=== PATIENT | female | born 1975 | race Caucasian/White ===

== ENCOUNTER 2023-06-12 08:37 | Emergency (ER) | payer OTHER, SELFPAY ==
[2023-06-12 08:47] VITALS: BP 166/80; PULSE 76; RESP 16; TEMP 36.8; O2SAT 98; BMI 44.6
--- NOTE | 2023-06-12 08:48 | ED.LOWEXI1 ---
HPI - Extremity Injury (Lower) General Chief Complaint: Extremity Injury, Lower Stated Complaint: RT HIP PAIN Time Seen by Provider: 06/12/23 08:48 History of Present Illness HPI Narrative: She presents emergency department complaining of right hip pain. Patient states she rolled out of bed implanted in her right leg to stop her fall. Since then she is having increased pain to the right hip. Any time she tries to bear weight. The patient did not fall. Patient states that last week she rolled her ankle on is having left mid foot pain since. She states her left foot hurts anytime he tries to bear weight. She also has a rash to the medial aspect of the arch. She has been applying hydrocortisone to the area has not had any relief. She states she saw her doctor about this months ago and was told it was eczema. She denies any fever, chills, lower extremity edema. Related Data Previous Rx's Medication Instructions Recorded clotrimazole-betamethasone 1 1 applic topical BID 2 weeks #15 06/12/23 %-0.05 % topical cream grams ketorolac 10 mg tablet 10 mg PO Q8H PRN pain 4 days #14 06/12/23 tabs Allergies Allergy/AdvReac Type Severity Reaction Status Date / Time codeine AdvReac Severe Vomiting Verified 06/12/23 08:46 Review of Systems ROS Status of ROS 10 or more systems reviewed and unremarkable except as noted in history and below PFSH PFS Social History Smoking status: Former smoker Exam Narrative Exam Narrative: Nurses notes and vital signs reviewed and patient is not hypoxic. General: Nontoxic, Well-appearing and in no apparent distress. Skin: Warm, dry, no pallor noted. Left medial mid foot scaly rash throughout the arch extending to the superior leads. There is no erythema no ecchymosis, no signs of trauma, infection. DP +2, tuberculosis +2, capillary refill is brisk. Head: Normocephalic, atraumatic. Neck: Supple, non-tender. Eye: Pupils are equal, round and EOMI. No scleral icterus. Ears, Nose, Mouth, and Throat: TM clear, no posterior oropharynx erythema or nasal mucosal hypertrophy, uvula is mid-line Oral mucosa is moist Cardiovascular: Regular Rate and Rhythm without murmur, gallop or rub. Respiratory: No accessory muscle use or respiratory distress. Lungs are clear to auscultation, no wheezing, rales or rhonchi Chest Wall: no tenderness Back: No midline thoracic or lumbar vertebral tenderness. No CVA tenderness Musculoskeletal: There is superficial to the right hip over the posterior acetabular area. No erythema, ecchymosis, signs of trauma, infection., Full ROM, no calf or popliteal tenderness, no lower extremity edema/swelling GI: Abdomen is soft, non-distended. Normal bowel sounds. No masses appreciated. No tenderness to palpation. No rebound, guarding, or rigidity noted. Neurological: A&O x4. No cranial nerve dysfunction observed. No truncal ataxia. Moves all extremities. Sensation intact. Psychiatric: Cooperative and interactive. Normal mood and affect. MDM - Extremity Injury (Lower) MDM Narrative Medical decision making narrative: Patient was given Toradol in the emergency department. The patient of herself. The patient is given a prescription for Toradol and Lotrisone. At this time the patient is without objective evidence of an acute process requiring hospitalization or inpatient management. The patient has remained hemodynamically stable. No additional indication for emergent studies at this time. I answered all questions. Discussed discharge instructions including standard anticipatory guidance and what should prompt a return to the emergency department, including if they get worse are not getting better or develops any new or concerning symptoms. I've given them specific time frame in which to follow-up, and who to follow-up with. The patient demonstrates understanding. Patient is nontoxic and stable for discharge with outpatient follow-up. This note was created with the assistance of a speech recognition program. Although the intention is to generate documents that actually reflects the content of the visit, no guarantees can be provided that every mistake has been identified and corrected by editing. Lab Data Attestation: I reviewed the patient's lab results. Discharge Plan Discharge Chief Complaint: Extremity Injury, Lower Clinical Impression: Dermatitis, Arthritis of right hip, Left foot pain Patient Disposition: Home, Self-Care Time of Disposition Decision: 09:59 Condition: Good Mode of Transportation: Private Vehicle Prescriptions / Home Meds: New clotrimazole-betamethasone 1-0.05 % cream 1 applic topical BID 14 Days Qty: 15 0RF ketorolac 10 mg tablet 10 mg PO Q8H PRN (Reason: pain) 4 Days Qty: 14 0RF Instructions: Osteoarthritis (ED), Arthralgia (ED), Dermatitis (ED) Stand Alone Forms: Portal Instructions Referrals: OMAR OBREGON APRN [Physician] - 1 week Physician,Non-Staff, MD [Primary Care Provider] - 1 week Discharge Date/Time: 06/12/23 10:18
--- NOTE | 2023-06-12 09:32 | XR_ITS ---
[address] [address] Patient Name: LUI SAM MRN: [id number] date: 1975 Sex: F Assigned Patient Location: ER Current Patient Location: ER Accession/Order Number: [id number] Exam Date: 06/12/2023 09:23 Report Date: 06/12/2023 09:41 At the request of: LIV ALANIZ Procedure: XR hip RT min 2V PROCEDURE: XR hip RT min 2V COMPARISON: None. HISTORY: pain FINDINGS: BONES:No acute fracture or dislocation. Mild degenerative change with joint space narrowing marginal osteophyte formation SOFT TISSUES:Negative. No visible soft tissue swelling. EFFUSION:None visible. OTHER: Negative. XR/XR hip RT min 2V IMPRESSION: Mild degenerative change Electronically authenticated by: SUYAPA BHATT Date: 06/12/2023 09:41
--- NOTE | 2023-06-12 09:32 | XR_ITS ---
[address] [address] Patient Name: LUI SAM MRN: [id number] date: 1975 Sex: F Assigned Patient Location: ER Current Patient Location: ER Accession/Order Number: [id number] Exam Date: 06/12/2023 09:23 Report Date: 06/12/2023 09:43 At the request of: LIV ALANIZ Procedure: XR foot LT min 3V PROCEDURE: XR foot LT min 3V COMPARISON: None. HISTORY: pain FINDINGS: BONES:No acute fracture or dislocation. Moderate enthesopathic spurring of the calcaneus at the Achilles and plantar insertions SOFT TISSUES:Negative. No visible soft tissue swelling. EFFUSION:None visible. OTHER: Negative. XR/XR foot LT min 3V IMPRESSION: No acute abnormality Electronically authenticated by: SUYAPA BHATT Date: 06/12/2023 09:43
[2023-06-12] MEDS: KETOROLAC TROMETHAMINE 60 MG/2 ML VIAL IM (09:54)
== END 2023-06-12 10:18 | disposition home or self-care (01) ==
PROVIDERS: Emergency Provider Emergency Medicine
DX: M16.11 Unilateral primary osteoarthritis, right hip (principal); M79.672 Pain in left foot; L30.9 Dermatitis, unspecified; Z87.891 Personal history of nicotine dependence
CPT/HCPCS: 73502; 73630; 96372; 99285

== ENCOUNTER 2023-11-02 06:29 | Emergency (ER) | payer SELFPAY ==
[2023-11-02 06:32] VITALS: BP 162/108; PULSE 78; RESP 18; TEMP 37.3; O2SAT 96; BMI 43.9
--- NOTE | 2023-11-02 06:41 | PC.NURSE ---
Patient c/o dental pain and facial swelling. patient states she has hx of broken teeth. has broken front tooth at the gum line 2 weeks ago. developed pain and swelling a couple days ago. patient has been taking tylenol and ibuprophen for pain. states pain is 10/10 but reduces to 7/10 after taking 600mg ibuprophn and 1000mg tylenol. patient has swelling on both sides of face. states she feels pain up to the bridge of her nose. patient would like antibiotics. states she does not have insurance so she has not made a dental appointment.
--- NOTE | 2023-11-02 06:45 | ED.DENTAL1 ---
HPI - Dental/Oral General Chief complaint: Dental/Oral Stated complaint: dental Time Seen by Provider: 11/02/23 06:36 Source: patient Mode of arrival: walk-in Limitations: no limitations History of Present Illness HPI Narrative: 40-year-old female to the emergency department with chief complaint of broken tooth which has now become infected. She reports that she sees a dentist the [facility] has upcoming appointment. For the last week she has had increasing pain. She woke up this morning with swelling in her right maxillary region. She denies any fever, sweats, chills. Teeth map: 1. Related Data Previous Rx's Medication Instructions Recorded penicillin V potassium 500 mg 500 mg PO Q6H 7 days #28 tabs 11/02/23 tablet Allergies Allergy/AdvReac Type Severity Reaction Status Date / Time codeine AdvReac Severe Vomiting Verified 11/02/23 06:37 Review of Systems ROS Status of ROS 10 or more systems reviewed and unremarkable except as noted in history and below PFSH PFSH Social History Smoking status: Former smoker Exam Narrative Exam Narrative: VITALS: I have reviewed the triage vital signs. GENERAL: Well developed, well appearing adult in no acute distress. NEURO: Alert and oriented. Moves all extremities. Face is symmetric and expressive. EYES: PERRL. No scleral icterus or conjunctival injection. No discharge. HENT: Normocephalic, atraumatic. Hearing is grossly intact. Nares grossly patent and without discharge. Mucous membranes moist. Nursing for admission. The right maxillary region with some gingival erythema and swelling of the cheek. NECK: No JVD. Patient moves neck without restriction. EXTREMITIES: Symmetric muscle bulk. No joint swelling. No clubbing, cyanosis, or deformity. SKIN: Warm and dry. Normal turgor. No rash or lesions appreciated. PSYCH: Mood, affect, and interaction is appropriate to the setting. Constitutional Vital Signs, click to edit/add: Last Vital Signs Temp 99.1 F 11/02/23 06:32 Pulse 78 11/02/23 06:32 Resp 18 11/02/23 06:32 BP 162/108 H 11/02/23 06:32 Pulse Ox 96 11/02/23 06:32 O2 Del Method Room Air 11/02/23 06:32 Course Vital Signs Vital signs: Vital Signs Temperature 99.1 F 11/02/23 06:32 Pulse Rate 78 11/02/23 06:32 Respiratory Rate 18 11/02/23 06:32 Blood Pressure 162/108 H 11/02/23 06:32 Pulse Oximetry 96 11/02/23 06:32 Oxygen Delivery Method Room Air 11/02/23 06:32 Temperature 99.1 F 11/02/23 06:32 Pulse Rate 78 11/02/23 06:32 Respiratory Rate 18 11/02/23 06:32 Blood Pressure 162/108 H 11/02/23 06:32 Pulse Oximetry 96 11/02/23 06:32 Oxygen Delivery Method Room Air 11/02/23 06:32 MDM - Dental/Oral MDM Narrative Medical decision making narrative: 48-year-old female to the emergency department uncomplicated dental infection. Vital stable, the patient is afebrile. We'll treat with penicillin. She is instructed to follow up with dentist in the next five days. Questions discussed. All questions answered. The patient was discharged home. Medical Records Attestation: I reviewed the patient's medical records. Discharge Plan Discharge Chief Complaint: Dental/Oral Clinical Impression: Dental infection Patient Disposition: Home, Self-Care Time of Disposition Decision: 06:42 Condition: Good Mode of Transportation: Private Vehicle Prescriptions / Home Meds: New penicillin V potassium 500 mg tablet 500 mg PO Q6H 7 Days Qty: 28 0RF Print Language: Ukrainian Instructions: Dental Abscess (ED) Additional Instructions: Follow-up with your dentist at the [facility] within the next five days Stand Alone Forms: Portal Instructions Referrals: Physician,Non-Staff, MD [Primary Care Provider] - 1 week
== END 2023-11-02 06:52 | disposition home or self-care (01) ==
PROVIDERS: Emergency Provider Student in an Organized Health Care Education/Training Program
DX: K04.7 Periapical abscess without sinus (principal); Z87.891 Personal history of nicotine dependence
CPT/HCPCS: 99283

== ENCOUNTER 2023-11-03 08:40 | Emergency (ER) | payer SELFPAY ==
[2023-11-03 08:52] VITALS: BP 182/77; PULSE 102; RESP 20; O2SAT 97; BMI 44.6
[2023-11-03 08:58] VITALS: TEMP 37.5
[2023-11-03] MEDS: ONDANSETRON 4 MG RAPDIS TABLET SL (09:24)
[2023-11-03] MEDS: KETOROLAC TROMETHAMINE 60 MG/2 ML VIAL IM (09:24)
--- NOTE | 2023-11-03 10:21 | ED.GENADUL1 ---
HPI - General Adult General Chief complaint: Allergic Reaction Stated complaint: MOUTH/HEAD PAIN Time Seen by Provider: 11/03/23 09:06 Source: patient Mode of arrival: walk-in History of Present Illness HPI narrative: 48-year-old female presents for what she thinks might be an ALLERGIC reaction to penicillin. She was started on penicillin yesterday and has had four doses. She now has a headache and she got nauseous and she vomited. She has not had a rash or hives or tongue swelling. She doesn't have pruritus. Symptoms started within the last twelve hours. she is on the penicillin because of a tooth issue. Related Data Previous Rx's Medication Instructions Recorded penicillin V potassium 500 mg 500 mg PO Q6H 7 days #28 tabs 11/02/23 tablet clindamycin HCl 300 mg capsule 300 mg PO Q6H 10 days #40 caps 11/03/23 ondansetron 4 mg disintegrating 4 mg PO Q6H PRN nausea and 11/03/23 tablet vomiting #20 tabs Allergies Allergy/AdvReac Type Severity Reaction Status Date / Time codeine AdvReac Severe Vomiting Verified 11/02/23 06:37 Review of Systems ROS Narrative A ten point review of systems is negative except as noted above. PFSH PFSH Social History Smoking status: Former smoker Exam Narrative Exam Narrative: Nurses note and vital signs reviewed and patient is not hypoxic. General: The patient appears well and in no apparent distress. Patient is resting comfortably on cart. Skin: Warm, dry, no pallor noted. There is no rash noted. Head: Normocephalic, atraumatic Eye: Normal conjunctiva, no drainage Ears, Nose, Mouth, and Throat: oral mucosa is moist. Nares patent. dental caries noted in the right upper anterior dentition. No bleeding or pus present. No tongue swelling. She is handling her oral secretions well. Cardiovascular: Regular Rate and Rhythm Respiratory: Patient is in no distress, no accessory muscle use, lungs are clear to auscultation, no wheezing, rales or rhonchi Back: non-tender GI: soft and nontender Musculoskeletal: The patient has no evidence of calf tenderness, no pitting edema, symmetrical pulses noted bilaterally Neurological: A&O, normal speech Psychiatric: Cooperative Constitutional Vital Signs, click to edit/add: Last Vital Signs Temp 99.5 F 11/03/23 08:58 Pulse 102 H 11/03/23 08:52 Resp 20 11/03/23 08:52 BP 182/77 H 11/03/23 08:52 Pulse Ox 97 11/03/23 08:52 O2 Del Method Room Air 11/03/23 08:52 Course Vital Signs Vital signs: Vital Signs Pulse Rate 102 H 11/03/23 08:52 Respiratory Rate 20 11/03/23 08:52 Blood Pressure 182/77 H 11/03/23 08:52 Pulse Oximetry 97 11/03/23 08:52 Oxygen Delivery Method Room Air 11/03/23 08:52 Temperature 99.5 F 11/03/23 08:58 Pulse Rate 102 H 11/03/23 08:52 Respiratory Rate 20 11/03/23 08:52 Blood Pressure 182/77 H 11/03/23 08:52 Pulse Oximetry 97 11/03/23 08:52 Oxygen Delivery Method Room Air 11/03/23 08:52 Medical Decision Making MDM Narrative Medical decision making narrative: the patient presents with side effects of penicillin, specifically nausea. She was given Toradol and Zofran and feels improved and is able to tolerate by mouth liquids. We'll take her off of the penicillin and switched to clindamycin. Treatment diagnosis and follow up are discussed with the patient. Differential Diagnosis Differential Diagnosis: side effect, adverse reaction, ALLERGIC reaction Discharge Plan Discharge Chief Complaint: Allergic Reaction Clinical Impression: Medication side effect Patient Disposition: Home, Self-Care Time of Disposition Decision: 10:29 Condition: Good Mode of Transportation: Private Vehicle Prescriptions / Home Meds: New clindamycin HCl 300 mg capsule 300 mg PO Q6H 10 Days Qty: 40 0RF ondansetron 4 mg tablet,disintegrating 4 mg PO Q6H PRN (Reason: nausea and vomiting) Qty: 20 0RF No Action penicillin V potassium 500 mg tablet 500 mg PO Q6H 7 Days Qty: 28 0RF Instructions: Adverse Drug Reaction (ED) Additional Instructions: discontinue penicillin Stand Alone Forms: Portal Instructions Referrals: Physician,Non-Staff, MD [Primary Care Provider] - 1 week
== END 2023-11-03 10:48 | disposition home or self-care (01) ==
PROVIDERS: Emergency Provider Emergency Medicine
DX: R11.2 Nausea with vomiting, unspecified (principal); T36.0X5A Adverse effect of penicillins, initial encounter; Z87.891 Personal history of nicotine dependence; R51.9 Headache, unspecified; R50.9 Fever, unspecified
CPT/HCPCS: 96372; 99284

== ENCOUNTER 2024-03-16 06:32 | Observation (INO) | payer SELFPAY ==
[2024-03-16] VITALS (50 sets, daily range): BP systolic 138–220; BP diastolic 70–118; PULSE 82–97; TEMP 36.4–38.2; O2SAT 90–100; BMI 42.9; BMI 42.8
--- OUTSIDE RECORDS SUMMARY | 2024-03-16 06:41 | XMS_ITS | CCD ---
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 Automatic Name Role Phone Leonora De Leon Unavailable LIV ALANIZ Admitting Unavailable LIV ALANIZ Attending Unavailable [facility] [place], DR NORMAN Primary Care Unavailable NEMESIO GUTIERREZ Consulting Unavailable [facility] [place], DR NORMAN Primary Care Unavailable ANA, DR SCHRADER Admitting Unavailable ANA, DR SCHRADER Attending Unavailable ANA, DR SCHRADER Consulting Unavailable [facility], DR NORMAN Primary Care Unavailable LIV ALANIZ Admitting Unavailable LIV ALANIZ Attending Unavailable TOM, DR ARMANI Lee Consulting Unavailable LIV ALANIZ Consulting Unavailable Medications Current Medications Medication Drug Class(es) Dates Sig (Normalized) Sig (Original) Penicillin (1 source) Start: 10-14-2021 take 1 tablet by mouth three times daily Penicillin VK 500mg 500mg 1 tab(s) orally tid for 10 day(s) Sep, Active Completed/Discontinued Medications Medication Drug Class(es) Dates Sig (Normalized) Sig (Original) cetirizine hydrochloride 10 mg oral tablet (1 source) Histamine-1 Receptor Antagonist Start: 01-31-2020 take 1 tablet by mouth every twenty-four hours Cetirizine HCl 10 MG 1 tablet Orally Once a day for 30 day(s) Jan, Not-Taking dextromethorphan hydrobromide 30 mg / pyrilamine maleate 30 mg oral tablet (1 source) Uncompetitive B-ooujce-B-aspartate Receptor Antagonist, Sigma-1 Agonist Start: 01-31-2020 [place] DMT 30-30 MG 1 tablet Orally every 6-8 hours for 7 days Jan, Not-Taking fluticasone propionate 0.05 mg/actuat metered dose nasal spray (1 source) Corticosteroid Start: 01-31-2020 take 1 spray(s) nasal route once daily Fluticasone Propionate 50 MCG/ACT 1 spray in each nostril Nasally Once a day for 30 day(s) Jan, Not-Taking Problems Active Problems Problem Classification Problem Date Documented Da te Episodic/Chronic Acute bronchitis (1 source) Acute bronchitis, unspecified; Translations: [ACUTE BRONCHITIS UNSPECIFIED] Onset: 07-29-2022 Episodic Headache; including migraine (1 source) Migraine, unspecified, not intractable, without status migrainosus; Translations: [MIGRAINE UNS NOT INTRACT W/O SM] Onset: 01-28-2022 Chronic Headache; including migraine (3 sources) Headache; including migraine; Translations: [HEADACHE UNSPECIFIED] Onset: 01-25-2022 Substance-related disorders (1 source) Nicotine dependence, cigarettes, uncomplicated; Translations: [NICOTINE DEPEND CIGARETTES UNCOMP] Onset: 07-29-2022 Chronic Unclassified (2 sources) COUGH, UNSPECIFIED; Translations: [COUGH, UNSPECIFIED] Onset: 07-29-2022 Unclassified (1 source) CONTACT W/AND (SUSP) EXPOS COVID-19; Translations: [CONTACT W/AND (SUSP) EXPOS COVID-19] Onset: 07-29-2022 Past or Other Problems Problem Classification Problem Date Documented Date Episodic/Chronic E Codes: Cut/pierceb (1 source) Contact with knife, initial encounter; Translations: [CONTACT WITH KNIFE INITIAL ENC] Onset: 12-21-2021 Episodic Immunizations and screening for infectious disease (2 sources) Contact with and (suspected) exposure to other viral communicable diseases; Translations: [Encounter for immunization] Onset: 10-14-2021 Resolved: 10-14-2021 Episodic Open wounds of extremities (4 sources) Laceration without foreign body of right ring finger without damage to nail, initial encounter; Translations: [LAC NO FB RT RF NO DMG NAIL INITIAL] Onset: 12-19-2021 Episodic Other upper respiratory infections (1 source) Streptococcal pharyngitis Onset: 10-14-2021 Resolved: 10-14-2021 Episodic Unclassified (1 source) COUGH, UNSPECIFIED; Translations: [COUGH, UNSPECIFIED] Onset: 07-26-2022 Results Test Name Value Interpretation Reference Range Facility [facility]on SARS-CoV-2 (COVID-19) RNA CARLITO+probe Ql (Unsp spec) Not detected Normal NOT DETECTED [facility] Comment on above: Result Comment: When diagnostic testing is negative, the possibility of a false negative should be considered in the context of a patient's recent exposures and the presence of clinical signs and symptoms consistent with SARS-CoV-2. This test is not yet approved or cleared by the [place] FDA. When there are no FDA-approved or cleared tests available, and other criteria are met, FDA can make tests available under an emergency access mechanism called an Emergency Use Authorization (EUA). The EUA for this test is supported by the Money Laundering Investigator of Health and Human Service's declaration that circumstances exist to justify the emergency use of in vitro diagnostics for the detection and/or diagnosis of the virus that causes COVID-19. This EUA will remain in effect for the duration of the COVID-19 declaration justifying emergency of IVDs, unless it is terminated or revoked by the FDA (after which the test may no longer be used). Performed By: #### [facility] #### [facility] [address] [place] [address] Dr. Francine Ruiz XR CHEST 1 Von 07-26-2022 XR CHEST 1 V EXAMINATION: XR CHEST 1 V HISTORY: SHORTNESS OF BREATH , cough, sore throat, body aches COMPARISON: XR chest 09/30/2016 FINDINGS: LUNGS: No significant pulmonary parenchymal abnormalities. VASCULATURE: No increased pulmonary vasculature. PLEURA: No pneumothorax, effusion, or pleural thickening. CARDIAC: No cardiomegaly or cardiac silhouette abnormality. MEDIASTINUM: No visible mass or adenopathy. BONES: No fracture or visible bone lesion. OTHER: Negative. IMPRESSION: 1. No acute cardiopulmonary process. Electronically authenticated by: ARMANI SANTOS Date: 2022-07-26 11:40 Normal [facility] Coding Summary.on 02-18-2022 Coding Summary. [id number] IZq3iRx+PGhlYWQ+PE1 LBZFcM25ggDXamZ0XV5 kVHD4FWWTCOEABZL7YV B2nkCP9ZGtyQ3VjyaEl WuzstHNjIC89PAm1WSC 4eQmpPHvaoN3ubFCbQ3 s1NqYoLG89xA32OWblD AKdKoB5WcNwpegesOGw W5zgPuTskQMbMow+PHR hYmxlIHdpZHRoPScxMD ZsHoAbvRpxNN0bIc1vY GVyLWNvbGxhcHNlOiBj s3usJCKjWTwbVC0ehTm tW5EbaRB8OXQor6j4Hv 48dHI+AJObTZH9iUmqT Vfmu063NvAen5tlBOG6 jQDdZHlwKKO3D62sh9H 4QCGuWNYcUGS7dHB4rM 6vdSqozvwrZ9KbpMJkZ zF1PPA3gUUxhI8ozFuo ofbluK6hLqz+P70ZEW0 VXBSILM4SOuf7K9YmLs wvdHI+DP00AMAbPG43c TRlvFAeo7mbtYf8MjJa FZXzQZM0eLzcRMlsx2N sCPZhC78mrPSnu9N1HI OamQbuqSOuYkZwnEW7l J7tQIbharrou9qxmsfj Mudgd9lxcw42wH05P70 aBLlnVXSsLKF8AUOpZT GluLuctb3tkB7wLa1+I Upyp9suq6wunMe6PdXx QAGrzeSaqGhaKPH7c8T aIa78M9MsqCowe5GcZn l9gk72yQIhx0F4jFA7D TckRVIrrI9nKMwyNcR6 DKNyLaLxlM01kFRdTPq qAg5bnAaosWncSL2jMJ JvbxvbBZXtuR8kIDZbp JYbaBiuAW9pDIXkorsv v879PaMlTFC6PFSgvCO rR3CegB6sYnHuNMWtWH IrD3QzrCCvQIwtI023X JdjDoT6KSNbvkWfW2Kl LBYviGayJkC1z0W3Zc4 Uq3UrgplpMFW1GLyrWX C8LvD2QnMqSjD9U7QsZ uz4OVDooEawDN5yC8Zq LIBhjchcxetavQS2ZRE sJRIyyK02hDXpOCdzCd 4bp6X9c553KPVsSYVxp Z92Lw5eoWowQUPytEDD sS0dovafc9cvcubnNdV kBZAaXTx9HJu2EYUahU raKsTwPZT2PfV7NQG6z NCymZ0zzJwpcgzfdP6m Oyc+Q51bpJ6wMYO4VDV 9mcdzDNGlpmUfFG67NZ 33J3TcWegwjNQkoMV+P LUqwkRilJysFV5cSjGk b8ypb4UnSNxdI8DhOXC zKTjuWfu7WOMsXBB0nB V5sV5tNSGtPZgzv4P7o OF9D3OswhTlkb4xp7xo UMLhTTpzG21qzXAcw6I 6VMFicBV4TNBbySyxYm BnqD90Dxt+PGNvbGdyb 3ImMuckk8gnm7jdeVj7 IjMwJSIgdmFsaWduPSJ 5x7ZdKy52X28nKJtjMV RoPSIxNSUiIHZhbGlnb x8kwC0zCl4+PGNvbCB3 aTL1wD6wJDQbJzM5XFq sS665CkTidDHvEezbs4 xou8vdvLp1UxPeUXHvr jVigHjtOKU1v9CmXh73 C96kSGigSOYcFSIcKQT yPCKdqTenkc8qyM8iHc 8+GD2ld0frmc23xU82y HI+KZUnWCE3pUdcOTla RRKmjB6vPPgrMaA9MKH qBvPgdI64cYJnGDeeGt 4vjQurzQfoLI3yYFYcf cpmy650MeAhs0bcFJJl mURuVBhqMHY9W24gh2Y 0SHOvSNAkPLB8bSM3nQ 1hbGlnbjogbGVmdDsgd dNwxWikSJphLHozB784 IHRvcDsnPlBhdGllbnQ pBqWwLGg1X5EhNmv8YQ CezKuxBR5lyJTwIFebX d9olYkfbYxiCF9lDBNd rxcga610UdFjt3ouRCV trKAhMBgrBBG2S53bd6 D8EXIyCWVbAAW2rFF9w W5whMkvlkrmyHTmyRrj ujBgfEomOTwrRGsvA51 6IHRvcDsnPkJpcnRoIE VpkDO6CN19UQ97tBOyc 8G1uOH3Z6RwPPUvgzyt xdkwmSE9ZIOcYGNxhH9 4Qw8jgRohWp9uLBHkZF F9KNBszCCaS1OffY1oB oOrKRUaOYGmL2FdhJXo QUckW004CTsaUlE7ISL uiiLiQ5GmHWMxlWsjOj E0m2R8Oo1BE9G5XZ89R Z77oPXsr4J4yEB7T7Pw SPDxcwnueyhzwBU7YMQ yPTXtfK04Xc9ibSfrUb 5yTZSoEXX4DENgyAWqF 1TdzA2sUbFfDURfKEQj B0FvjOLrTTgpI554FFy wBoK1ESUmozKaW9ZiST YeaMszBlF3b1R9It8DL Ee6CQ52KK53pOQxv6B5 sZI8W4ErJJVfqhhmjsd hyDQ4OCBgMEWsoY95Wh 9twHvaJc3yUXTkCKJ8C AQgaVVxK6JuaB2xAgVs XKAwUKZcT9OkqQSyJCf hE800MRtlGoU3MVKlay WzZ9VsWWOxbXflStR5n 1J2Si0VRAWeYV92MVC3 sMK9LH73LB25P2OpCgf vdGFibGU+PHRhYmxlIH dpZHRoPScxMDAlJyBzd TvyEM7yJr7iLKGqUTPw eHrdeOPkUxJfw0ijRWH eWRjsLK3rdRddN4IanX O1HCIbs3p8Zc64Y72oE 3JvdXA+LPQsvUA9yGD1 lY8iCiFgFfT6DTkvM47 3GzWitRHsVcyqc6ocp0 icaHh2JrE3ZTGuyqTzo MuyRYX2d6OvDd15P78p IHdpZHRoPSIxNSUiIHZ glRsysv2crQ3iXo0+PG XopZL4eOH1uA0iOvNzF bC8NHzyY778BmBphHIu Uosvy0fqc9ocmLp8EeO oGIHrdiBvvLepUHE2c3 DeUr14P0YzdIcnc2UcE qu7cs61tEXrj7O6cTI0 H3VxYFQebfopgUBhhKi aPS8hHEJsqthwHJJlkC 8qMLAkZ8j9LwIcBcL8P BdjU4SwelF6CVYgwCEa TSnsVNE4Z85wt2W2EFX jMJZdEOZ9fMD6uT9coV lnbjogbGVmdDsgdmVyd SptURfyAZgvE525GDWf vIykSZFzaU9pRKWfpTQ dcOqfSA1rATQjenbzBl mJLQxPNqldXRJESx8lP TwvdGQ+BOFzHGA9mYog TUutWVZmdC5qZMQuQ7v 2XvAlYnU0WDjhD7GaLB YstmatJo09lX9zRgAoS xV6DXhoY8GqxrZ9XTXu rMOnMXfzQLJ6X52qx4L 7TPHkYSJzZHI8dOE4qK 1hbGlnbjogbGVmdDsgd dXcqQdnGZjzSVoaC964 FGGczOceSuE8IkW4UzX 4PmI8O5TgNcg4JQKwjW qdRW1kjDDbKRbtNa2jk EadgEueZY2gQRQwyckj EDNczG4uGXQhyQUfaOc bND5zYPPhtcspe323Jo GzZUU5YEYykHZwR2Tig Z5pEyKvTRNxTAIcI9Fs uLHnRCzjY916YNdcLrA 9MSSnexFeU2EgSMGtmU cdUlW8j2Z9Kr79CqLTT WFyczwvdGQ+PHRkIHN0 gGozIWcdUGWbkM9jVCX lM1u7NjBiSxL0NLnkY5 FuCOTbcnqgQk16hO7eK vCuKpK4VBzoD5BcuhT7 FWLfbTGmDZxaBIE3X46 ed6U3EPSmVMXpWPQ6vA C2qF5bgCqqzekbjIKwu DsgdmVydGljYWwtYWxp V075UXYopKgjIaUmiLK sZTwvdGQ+VCSdVIK0dU ccWZqwEFQcfB5xKANtO 1k4JqClUwC1VGarT2Ea FPCrbshrBg45tN2vDqL rHdC0DTsjX4OjsiY3GJ SywEFuONpfCHT8L97qj 3W7LKBlFEDqNJD4uSP8 dU7dtDrdvrlzeQBncTh gdmVydGljYWwtYWxpZ2 46IHRvcDsnPkVtZXJnZ V6arHblvWN+HP57xo19 H0XjCmhsCqo7KJVrYMM 5oUB2gB7pTUEcUPpuf7 Q5xYA0J6HsumJyej4ip 6ioEPImRLomW48ezWDd v1D3DPGreNP1DOMqvEa pLxXnqQ64Mvc+PGNvbG fca3WcAiawc1anb1sdx Ou0UfPjPJKqhoQanGsp ZKO1h2McJg80O54xUAo pZHRoPSIzMCUiIHZhbG qxpn8gdS0yOy0+PGNvb YL8gBH2mI4dJgWdVhM0 NIwxH058MkGqgEFqTbe gc3ebu1xldKw6LhGrFN NvpkTneLalPWA9h7UlZ a48O1CdsFgfl6JkOqt4 du39sSDzf9Q0sUM4M6T hZGRpbmctbGVmdDogMC 3sJQAbutisDAGnxO5sX AVcS2q7CkPgAuS3UBrg T1MdwwA9KUFekZZyEVQ giHXQbU4objaiq7ddpv ppDrNjYLUyPKt2JXl3F NJgjYrgEdWbAWP3LyS9 WTD4kDVfpW8dmUjistl ezA6aRco+ZEv2m9qbyW LoJF1reNX2WD47YL80u HSmn9H3sHX3C6WhQFPw lovvzraypZX4UQUcUBF flY78Ux0qsDzpDh5oWJ NhIBA3FIKsgVWcF4Dhl F9wNcDlOJDsTCXrN1Hr nRDzQLqwN753ICciWeB 6ZHCakyKyT4AdGUYgnM joLzQ2e9U8Ca0VDL32R E37GC82wXDve3G1tPY6 D0RnFWDgtkstkpcoeNB 7MLTbEGZabI65Xy9kjW eaWg0cRLXiYSL5DNYhe SBvJ5BwaU5eWkOjHMId ODTmJ3MllNQiRNnvQ41 0AHimEkI9QORuaeLuZ0 DuFDLvvCxmEkH2w0C5I l8ATn46KE98ZQ33iOQb s7Y6tWN7U0AqZTTelld jbhlroXL6UAZhEDWteR 42Fm0ewWexSr1dLDWhR AB2YYCmlIZbF7MvhJ0j PzSmHYVnJWXyC5VqyKD yMMxlD450ITngKlV3MS ZpidYkL0DwAHBbiMewD dO2u8R4Rj6ETXtqpqx0 L4OwWkfrcJM+DF01ZLE eMR57pACxdOQlh3fmbS v6VoAvOGGmBKU3mAqiA Xoge9UaHQFsA65yjYQs c2U6 (more content not included)... Normal [facility] Auto Diffon 02-17-2022 Basophils/100 WBC (Bld) 1.1 % Normal 0.0-2.0 [facility] Comment on above: Order Comment: Order Added by Discern Expert. Performed By: #### 2 632923, 3762843, 6846394, 01618255, 13593095, 85909890, 98287377 #### [facility] [address] [place] [address] Basophils/Leukocyte s Auto (Bld) [Pure # fraction] 0.2 E9/L Normal 0.0-0.2 [facility] Comment on above: Order Comment: Order Added by Discern Expert. Performed By: #### 2 856701, 6707248, 6837573, 35436939, 13414729, 48177336, 54414505 #### [facility] [address] [place] [address]21 Eosinophils/100 WBC (Bld) 1.4 % Normal 0.0-8.0 [facility] Comment on above: Order Comment: Order Added by Discern Expert. Performed By: #### 2 020903, 4110012, 3851958, 54423884, 71009013, 42389394, 52198735 #### [facility] [address] [place] [address]38 Eosinophils/Leukocy hemant Auto (Bld) [Pure # fraction] 0.2 E9/L Normal 0.0-0.5 [facility] Comment on above: Order Comment: Order Added by Discern Expert. Performed By: #### 2 567034, 0331746, 2286352, 63082460, 56820160, 06182133, 26283542 #### [facility] [address] [place] [address] 79998 Lymphocytes/100 WBC (Bld) 21.7 % Normal 14.0-50.0 [facility] Comment on above: Order Comment: Order Added by Discern Expert. Performed By: #### 2 336794, 2685617, 9141335, 99298696, 14833842, 16627542, 32558159 #### [facility] [address] [place] [address] Lymphocytes/Leukocy hemant Auto (Bld) [Pure # fraction] 3.0 E9/L Normal 1.0-4.0 [facility] Comment on above: Order Comment: Order Added by Discern Expert. Performed By: #### 2 832334, 2687128, 7415691, 97011833, 58339201, 25253966, 28601115 #### [facility] [address] [place] [address]19 Monocytes/100 WBC (Bld) 4.6 % Normal 4.0-14.0 [facility] Comment on above: Order Comment: Order Added by Discern Expert. Performed By: #### 2 637662, 5624652, 1818511, 45780461, 76392769, 92237158, 85824758 #### [facility] [address] [place] [address]71 Monocytes/Leukocyte s Auto (Bld) [Pure # fraction] 0.6 E9/L Normal 0.2-1.0 [facility] Comment on above: Order Comment: Order Added by Discern Expert. Performed By: #### 2 460474, 1854092, 1948215, 98634263, 73943668, 39819321, 74598605 #### [facility] [address] [place] [address] 87739 Neutrophils/100 WBC (Bld) 71.2 % Normal 36.0-75.0 [facility] Comment on above: Order Comment: Order Added by Discern Expert. Performed By: #### 2 019211, 2878978, 6434726, 45677587, 35300555, 58379989, 34980025 #### [facility] [address] [place] [address]344 Neutrophils/Leukocy hemant Auto (Bld) [Pure # fraction] 9.9 E9/L High 2.0-7.5 [facility] Comment on above: Order Comment: Order Added by Discern Expert. Performed By: #### 2 729870, 2249780, 6278851, 66543140, 29302827, 69253141, 05887628 #### [facility] [address] [place] [address] B hCG Qualon 02-17-2022 Beta hCG Ql Negative Normal [facility] Comment on above: Performed By: #### 2 383980, 1846669, 2521525, 05039238, 49405070, 16136716, 35436399 #### [facility] [address] [place] [address] BMPon 02-17-2022 Creatinine [Mass/Vol] 0.6 mg/dL Normal 0.5-1.3 [facility] Comment on above: Performed By: #### 2 118663, 6715610, 0300795, 11378507, 98711602, 88783870, 61135355 #### [facility] [address] [place] [address] Urea nitrogen [Mass/Vol] 7 mg/dL Normal 5-21 [facility] Comment on above: Performed By: #### 2 516962, 6901801, 6723180, 12332139, 16880030, 52968975, 28849414 #### [facility] [address] [place] [address] Urea nitrogen/Creatinine [Mass ratio] 12 No Units Normal 10-20 [facility] Comment on above: Performed By: #### 2 874799, 9489449, 6774125, 98939659, 33584954, 79637469, 85905345 #### [facility] [address] [place] [address] Anion gap [Moles/Vol] 12 mmol/L Normal 6-16 [facility] Comment on above: Performed By: #### 2 433533, 4983561, 7773708, 02874214, 63688264, 77287469, 64462899 #### [facility] [address] [place] [address] Calcium [Mass/Vol] 8.7 mg/dL Low 8.9-11.1 [facility] Comment on above: Performed By: #### 2 021670, 7495537, 8070745, 20989879, 68833405, 11024065, 37329190 #### [facility] [address] [place] [address] Chloride [Moles/Vol] 101 mmol/L Normal 101-111 [facility] Comment on above: Performed By: #### 2 917379, 1033596, 3289615, 92500340, 71766021, 69843170, 55270405 #### [facility] [address] [place] [address] CO2 [Moles/Vol] 26 mmol/L Normal 21-31 [facility] Comment on above: Performed By: #### 2 659991, 5120452, 9655360, 50614552, 09792152, 23348737, 01484184 #### [facility] [address] [place] [address]1928 Glucose [Mass/Vol] 95 mg/dL Normal 55-199 [facility] Comment on above: Result Comment: If t his glucose result represents a fasting glucose, interpretation should refer to the following reference range: 55-99 mg/dL Performed By: #### 2 582184, 2727449, 8513639, 62348088, 42467704, 29260344, 49130504 #### [facility] [address] [place] [address] 77789 Potassium [Moles/Vol] 3.6 mmol/L Normal 3.5-5.3 [facility] Comment on above: Performed By: #### 2 799266, 1811930, 8688832, 64671078, 41214845, 90658853, 65428637 #### [facility] [address] [place] [address] Sodium [Moles/Vol] 135 mmol/L Normal 135-145 [facility] Comment on above: Performed By: #### 2 368023, 3187382, 8350094, 35090248, 18621032, 53001228, 15264710 #### [facility] [address] [place] [address] CBC w/ Auto Diffon Erythrocyte distribution width (RBC) [Ratio] 15.2 % High 10.9-14.2 [facility] Comment on above: Performed By: #### 2 160868, 1198902, 0542001, 83729030, 72334963, 22044098, 78664000 #### [facility] [address] [place] [address]017 Hematocrit (Bld) [Volume fraction] 40.8 % Normal 34.0-46.0 [facility] Comment on above: Performed By: #### 2 728475, 1961114, 0675159, 78317058, 51168947, 97176484, 41798555 #### [facility] [address] [place] [address] 44856 Hemoglobin (Bld) [Mass/Vol] 13.7 g/dL Normal 12.0-16.0 [facility] Comment on above: Performed By: #### 2 744380, 6256353, 8706521, 56304007, 06376210, 02782739, 97506351 #### [facility] [address] [place] [address] 00594 MCH (RBC) [Entitic mass] 27.5 pg Normal 27.0-34.0 [facility] Comment on above: Performed By: #### 2 125539, 3836377, 7361655, 81124195, 51273955, 24130671, 03107066 #### [facility] [address] [place] [address] 24082 MCHC (RBC) [Mass/Vol] 33.5 g/dL Normal 31.4-36.0 [facility] Comment on above: Performed By: #### 2 628204, 0471955, 6114417, 63242467, 99803955, 48652634, 46897288 #### [facility] [address] [place] [address] 79959 MCV (RBC) [Entitic vol] 82.1 fL Normal 80.0-100.0 [facility] Comment on above: Performed By: #### 2 270705, 7142873, 1118530, 93174829, 52602901, 26172524, 84942490 #### [facility] [address] [place] [address] 00527 Platelet mean volume (Bld) [Entitic vol] 9.0 fL Normal 6.4-10.8 [facility] Comment on above: Performed By: #### 2 333410, 3459257, 2165793, 63447034, 40601118, 66931573, 70209394 #### [facility] [address] [place] [address] Platelets (Bld) [#/Vol] 269.0 E9/L Normal 150.0-500.0 [facility] Comment on above: Performed By: #### 2 607835, 2039764, 5791827, 70123833, 15195556, 24454778, 64893462 #### [facility] [address] [place] [address] 64599 RBC (Bld) [#/Vol] 5.0 E12/L Normal 4.3-5.9 [facility] Comment on above: Performed By: #### 2 131289, 5461137, 2994732, 99156078, 95271632, 44813838, 92722427 #### [facility] [address] [place] [address] 23065 WBC corrected for nucl RBC Auto (Bld) [#/Vol] 13.9 E9/L High 4.0-11.0 [facility] Comment on above: Performed By: #### 2 470966, 9247325, 0972811, 92445608, 57662987, 38729896, 76122707 #### [facility] [address] [place] [address] Head or Brain w/o Contras ton 02-17-2022 CT Head or Brain w/o Contrast Exam Date/Time: 02/17/2022 14:07 EDT Reason for Exam: Neuro deficit, acute, stroke suspected;Other (please specify) Report IMPRESSION: NEGATIVE CT SCAN OF THE BRAIN. CLINICAL HISTORY: Neuro deficit, acute, stroke suspected. COMMENT: Unenhanced images were obtained. The ventricles and basal cisterns and cortical sulci appear normal. There is no mass effect nor midline shift. No abnormal attenuation within the brain is noted. There is no evidence of recent intracranial hemorrhage nor extra-axial hematoma. No mass lesion is evident. No skull fracture is noted. All CT scans at this facility use dose modulation, iterative reconstruction, and/or weight based dosing when appropriate to reduce radiation dose to as low as reasonably achievable. FINAL REPORT Dictated: 02/17/2022 2:25 pm Javier Sanon M.D. Signed (Electronic Signature): 02/17/2022 2:25 pm Signed by: Javier Sanon M.D. Transcribed by: BRIAN Technologist: RENNY Normal [facility] Consent for Treatmenton Consent for Treatment [id number]#1.00CD:127 Normal [facility] Discharge Instructionson Discharge Instructions [id number]:127 Normal [facility] ED Clinical Summaryon 2021 ED Clinical Summary [address] [address] ED Clinical Summary Person Information Name: LUI SAM Mendy/[facility] Age: 46 Years : 1975 Sex: Female Language: Hungarian PCP: Betty Velazquez MD Marital Status: MRN: [id number] Visit Id: Visit Reason: Headache; Facial droop; facial numbness, headache...times 3 days Speciality: Acuity: 2 Enc Type: Emergency Med Service: Emergency Arrival: 02/17/2022 12:36:03 Discharge: 02/17/2022 15:24:30 LOS: 000 02:48 Checkin: 02/17/2022 12:36:03 Checkout: 02/17/2022 15:24:30 Dispo Type: Home (Routine DC) EVENTS: Event Name Event Status Request Date/Time Start Date/Time Complete Date/Time Arrive Complete 02/17/2022 12:36:03 02/17/2022 12:36:03 02/17/2022 12:36:03 Document Home Meds Request 02/17/2022 12:36:03 Triage Complete 02/17/2022 12:36:03 02/17/2022 12:54:49 02/17/2022 12:54:49 Registration Complete 02/17/2022 12:42:00 02/17/2022 12:42:00 02/17/2022 12:42:00 Reg Complete Request 02/17/2022 12:42:00 Reg Bed Request Complete 02/17/2022 12:42:01 02/17/2022 12:42:01 02/17/2022 12:42:01 Bed Assign Complete 02/17/2022 12:46:05 02/17/2022 12:46:05 02/17/2022 12:46:05 Dr Exam Complete 02/17/2022 12:46:05 02/17/2022 13:18:57 02/17/2022 13:18:57 RN Exam Complete 02/17/2022 12:46:05 02/17/2022 13:25:21 02/17/2022 13:25:21 EKG Complete 02/17/2022 12:51:56 02/17/2022 13:00:42 Registration Request 02/17/2022 13:18:57 NPO Request 02/17/2022 13:35:50 Pending Labs Request 02/17/2022 13:35:50 Lab Request 02/17/2022 13:35:50 Urine Collect Request 02/17/2022 13:35:50 Patient Care Request 02/17/2022 13:35:50 X-Ray Complete 02/17/2022 13:35:50 02/17/2022 14:00:53 02/17/2022 14:12:25 RT Request 02/17/2022 13:35:50 Meds Admin Complete 02/17/2022 13:35:50 02/17/2022 13:44:54 CT Complete 02/17/2022 13:35:50 02/17/2022 13:58:24 02/17/2022 14:07:27 Pending Labs Complete 02/17/2022 13:57:42 02/17/2022 13:57:42 02/17/2022 14:14:31 Lab Complete 02/17/2022 13:57:42 02/17/2022 13:57:42 02/17/2022 14:14:31 Pending Labs Complete 02/17/2022 14:00:42 02/17/2022 14:00:42 02/17/2022 14:00:49 Lab Complete 02/17/2022 14:00:42 02/17/2022 14:00:42 02/17/2022 14:00:49 Wet Read Request 02/17/2022 14:12:25 Discharge Complete 02/17/2022 15:15:18 02/17/2022 15:24:35 02/17/2022 15:24:35 Transfer Complete 02/17/2022 15:24:35 02/17/2022 15:24:35 02/17/2022 15:24:35 ADDRESS: [address] [place] [address] [id number] PHYS DOC NOTES: MEDICAL INFORMATION: Prescriptions Given: New Medications Printed Prescriptions acyclovir (acyclovir 400 mg Tab) 1 Tablets By Mouth 3 times a day for 10 Days. Refills: 0. predniSONE (predniSONE 10 mg Tab) 1 Dose Separtor By Mouth As Directed. 6 tabs for 2 days,5 tabs for 2 days,4 tabs for 2 days,3 tabs for 2 days,2 tabs for 2 days,1 tab for 2 days. Refills: 0. PATIENT EDUCATION INFORMATION: Instructions: Oliveira Palsy, Adult Follow up: With: Address: When: Armani Hogue [address] [place] [address] [facility] (9) In 3 days 02/20/2022 Comments: Follow-up with a neurologist Dr. Hogue in 2 to 4 days. Return at once if any problems. Take the medications as prescribed. Please be sure to purchase some eye lubricating drops lqar-xlv-wztbjke and use every hour while awake. With: Address: When: Betty Velazquez [address] [place] [address] Business (1) In 3 days DIAGNOSIS: 1:Oliveira's palsy Normal [facility] ED Note-Physicianon 02-18-20 ED Note-Physician Basic Information Time Seen: Nicholas Aguilar DO 02/17/2022 13:18 Chief Complaint Pt presents to ED with complaints of right facial droop onset 3 days ago. Recent influenza A. Pt denies any speech changes, weakness or vision changes. Steady gait noted upon arrival. History of Present Illness Time seen: 1320 Chief complaint: 46-year-old white female right-sided facial weakness and headache History of present illness: The patient states she began about 24 hours ago when she noticed dribbling water out of her mouth when she tried to drink. She states that her face is weak on the right side and the right eye seems to be tearing. The patient denies right hemiparesis. She denies visual changes. She denies head injury, fever, chills and vomiting. She denies shortness of breath and chest pain. She does state that few weeks ago she had an episode where she went to another local emergency department after an episode of lightheadedness and what she described as wavy vision . She states she was diagnosed as a complicated migraine at that time. Nothing makes her symptoms today better or worse. The patient is questioning if she has Oliveira's palsy . She denies other complaints. Review of Systems Episode diagnosed as a complicated migraine a few weeks ago. The patient denies hemoptysis, palpitations, hematemesis, hemiparesis. All other systems have been reviewed and are negative. Physical Exam Vitals & Measurements T: 36.8 ?C(Oral) HR: 77(Monitored) RR: 27 BP: 154/94 SpO2: 97% HT: 163.0 cm HT: 163 cm WT: 113.0 kg WT: 113 kg BMI: 42.53 General: alert, no acute distress Skin: warm, dry Head: no trauma, normocephalic Neck: Trachea midline, no tenderness, supple Eye: normal conjunctiva, sclera clear , pupils react to light ENMT: TM's clear, oral mucosa moist, no pharyngeal erythema or exudate Cardiovascular: regular rate and rhythm, normal peripheral perfusion Respiratory: Lungs CTA, respirations non labored Gastrointestinal: soft, non distended, no tenderness, no guarding. Extremities: Patient moves all 4 extremities spontaneously. Neurological: oriented x 4, LOC appropriate for age, speech is fluent. There is a right-sided facial droop. Examination of the forehead demonstrates weakness in the right forehead when compared to the left. Other than cranial nerve VII the remaining cranial nerves are intact. There is no finger-nose dysmetria. Manager Heavy Equipment strength is equal and symmetric bilaterally. Psychiatric: cooperative, affect appropriate for age, . Medical Decision Making This 46-year-old female with an only risk factor of smoking presents to the emergency department with right-sided facial droop. The examination is consistent with Oliveira's. CT of the head was completed and was read by the radiologist negative. Laboratory studies are reasonably physiologic. The patient is nontoxic in appearance without other neurologic deficits. The patient will be discharged home with prescriptions for acyclovir 400 mg 1 p.o. 3 times daily for 10 days as well as prednisone 10 mg 6 tablets p.o. x2 days, 5 tablets p.o. x2 days, 4 tablets p.o. x2 days, 3 tablets p.o. x2 days, 2 tablets p.o. x2 days and then 1 tablet each day for 2 additional days. She was instructed to follow-up with Dr. Hogue neurology. She is instructed return at once if any problems. I did instruct her to use Lacri-Lube or another ulzc-ujz-dkwpzcu lubricating drop for the eye every hour while awake. She is to return once if any problems. 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) Orders: acetaminophen, 975 mg = 3 tab(s), Tab, Oral, Once, Stop date 02/17/22 13:34:00 EDT, STAT, Start date 02/17/22 13:34:00 EDT, 02/17/22 13:34:00 EDT acyclovir, 400 mg = 1 tab(s), Oral, TID, X 10 day(s), # 30 tab(s), Refills(s) 0 predniSONE, = 1 -, Oral, As Directed, 6 tabs for 2 days,5 tabs for 2 days,4 tabs for 2 days,3 tabs for 2 days,2 tabs for 2 days,1 tab for 2 days, # 42 tab(s), Refills(s) 0 Automated Diff Basic Metabolic Panel Beta hCG Qual CBC w/ Auto Diff [place] Stroke Scale Communication Order Physician to Nursing Continuous Pulse Oximetry CT Head or Brain w/o Contrast ED Cardiac Monitoring eGFR NPO Diet PT & PTT Routine Capillary Glucose POC Saline Lock Insert Stroke Quality Measures Troponin 0 Hr. UA With Cult Reflex Vital Signs XR Chest Single View Medications Administered Given acetaminophen 325 mg Tab, 975 mg, Oral Disposition Plan Patient Discharge Condition Stable Discharge Disposition Discharge home to follow-up Discharge Prescription List Prescriptions acyclovir 400 mg Tab, 400 mg= 1 tab(s), Oral, TID predniSONE 10 mg Tab, 1 -, Oral, As Directed Follow-up With When Contact Information Armani Hogue In 3 days 02/20/2022 EDT [address] [place] [address]- Business (1) Additional Instructions: Follow-up with a neurologist Dr. Hogue in 2 to 4 days. Return at once if any problems. Take the medications as (more content not included)... Normal [facility] Comment on above: Result Comment: Elec tronically Signed By: Nicholas Aguilar DO\.br\Date and Time Signed: 02/17/22 15:22 EDT ED Patient Education Noteon 02-17-2022 ED Patient Education Note Neurology Oliveira Palsy, Adult Oliveira palsy is a short-term inability to move muscles in part of the face. The inability to move (paralysis) results from inflammation or compression of the facial nerve, which travels along the skull and under the ear to the side of the face (7th cranial nerve). This nerve is responsible for facial movements that include blinking, closing the eyes, smiling, and frowning. What are the causes? The exact cause of this condition is not known. It may be caused by an infection from a virus, such as the chickenpox (herpes zoster), Em-Goldsmith, or mumps virus. What increases the risk? You are more likely to develop this condition if: ? You are . ? You have diabetes. ? You have had a recent infection in your nose, throat, or airways (upper respiratory infection). ? You have a weakened body defense system (immune system). ? You have had a facial injury, such as a fracture. ? You have a family history of Oliveira palsy. What are the signs or symptoms? Symptoms of this condition include: ? Weakness on one side of the face. ? Drooping eyelid and corner of the mouth. ? Excessive tearing in one eye. ? Difficulty closing the eyelid. ? Dry eye. ? Drooling. ? Dry mouth. ? Changes in taste. ? Change in facial appearance. ? Pain behind one ear. ? Ringing in one or both ears. ? Sensitivity to sound in one ear. ? Facial twitching. ? Headache. ? Impaired speech. ? Dizziness. ? Difficulty eating or drinking. Most of the time, only one side of the face is affected. Rarely, Oliveira palsy affects the whole face. How is this diagnosed? This condition is diagnosed based on: ? Your symptoms. ? Your medical history. ? A physical exam. You may also have to see health care providers who specialize in disorders of the nerves (neurologist) or diseases and conditions of the eye (gore cutter). You may have tests, such as: ? A test to check for nerve damage (electromyogram). ? Imaging studies, such as CT or MRI scans. ? Blood tests. How is this treated? This condition affects every person differently. Sometimes symptoms go away without treatment within a couple weeks. If treatment is needed, it varies from person to person. The goal of treatment is to reduce inflammation and protect the eye from damage. Treatment for Oliveira palsy may include: ? Medicines, such as: ? Steroids to reduce swelling and inflammation. ? Antiviral drugs. ? Pain relievers, including aspirin, acetaminophen, or ibuprofen. ? Eye drops or ointment to keep your eye moist. ? Eye protection, if you cannot close your eye. ? Exercises or massage to regain muscle strength and function (physical therapy). Follow these instructions at home: ? Take uqlb-lwf-hppmoqu and prescription medicines only as told by your health care provider. ? If your eye is affected: ? Keep your eye moist with eye drops or ointment as told by your health care provider. ? Follow instructions for eye care and protection as told by your health care provider. ? Do any physical therapy exercises as told by your health care provider. ? Keep all follow-up visits as told by your health care provider. This is important. Contact a health care provider if: ? You have a fever. ? Your symptoms do not get better within 2?3 weeks, or your symptoms get worse. ? Your eye is red, irritated, or painful. ? You have new symptoms. Get help right away if: ? You have weakness or numbness in a part of your body other than your face. ? You have trouble swallowing. ? You develop neck pain or stiffness. ? You develop dizziness or shortness of breath. Summary ? Oliveira palsy is a short-term inability to move muscles in part of the face. The inability to move (paralysis) results from inflammation or compression of the facial nerve. ? This condition affects every person differently. Sometimes symptoms go away without treatment within a couple weeks. ? If treatment is needed, it varies from person to person. The goal of treatment is to reduce inflammation and protect the eye from damage. ? Contact your health care provider if your symptoms do not get better within 2?3 weeks, or your symptoms get worse. This information is not intended to replace advice given to you by your health care provider. Make sure you discuss any questions you have with your health care provider. Document Released: 11/03/2006 Document Revised: 10/16/2018 Document Reviewed: 01/06/2018 itzbig Patient Education ? 2019 [employer]. Normal [facility] ED Patient Summaryon 022 ED Patient Summary [place] [id number] Patient Discharge Instructions Person Information Name: LUI SAM Age: 46 Years Arrival Date: 02/17/2022 12:36:03 Discharge Diagnosis: 1:Oliveira's palsy Primary Care Physician: Betty Velazquez MD Provider Information Primary Provider: Nicholas Aguilar DO Advanced Juice Weigher:None The exam and treatment you received in the Emergency Department were for an urgent problem and are not intended as complete care. It is important that you follow up with a doctor, nurse practitioner, or physician?s malt specifications control assistant for ongoing care. If your symptoms become worse or you do not improve as expected and you are unable to reach your usual health care provider, you should return to the Emergency Department. We are available 24 hours a day. LUI SAM has been given the following list of patient education materials, prescriptions and follow-up instructions: Follow-up Instructions: With: Address: When: Armani Hogue [address] [place] [address] [facility] (1) In 3 days 02/20/2022 Comments: Follow-up with a neurologist Dr. Hogue in 2 to 4 days. Return at once if any problems. Take the medications as prescribed. Please be sure to purchase some eye lubricating drops umiw-sls-gfhmbsk and use every hour while awake. With: Address: When: Betty Velazquez [address] [place] [address] [facility] (1) In 3 days In the event that this physician does not participate in your insurance network, please consult with your insurance company to find a nearby participating provider. Patient Education Materials: Oliveira Palsy, Adult A MESSAGE TO ALL PATIENTS REGARDING OPIOIDS PRESCRIPTION OPIOIDS: WHAT YOU NEED TO KNOW Prescription opioids can be used to help relieve pfvbkrtp-uo-ogwmyx pain and are often prescribed following a surgery or injury, or for certain health conditions. These medications can be an important part of the treatment but also come with serious risks. It is important to work with your healthcare provider to make sure you are getting the safest, most effective care. WHAT ARE THE RISKS AND SIDE EFFECTS OF OPIOID USE? Prescription opioids carry serious risks of addiction and overdose, especially with prolonged use. An opioid overdose, often marked by slowed breathing, can cause sudden . The use of prescription opioids can have a number of side effects as well, even when taken as directed: ? Tolerance?meaning you might need to take more of the medication for the same pain relief ? Physical dependence?meaning you have symptoms of withdrawal when a medication is stopped ? Increased sensitivity to pain ? Constipation ? Nausea, vomiting, and dry mouth ? Sleepiness and dizziness ? Confusion ? Depression ? Low levels of testosterone that can result in lower sex drive, energy, and strength ? Itching and sweating RISKS ARE GREATER WITH: ? History of drug misuse, substance use disorder, or overdose ? Mental health conditions (such as depression or anxiety) ? Sleep apnea ? Older age (65 years and older) ? Avoid alcohol while taking prescription opioids. Also, unless specifically advised by your health care provider, medications to avoid include: ? Benzodiazepines (such as Xanax or Valium) ? Muscle relaxants (such as Soma or Flexeril) ? Hypnotics (such as Ambien or Lunesta) ? Other prescription opioids KNOW YOUR OPTIONS Talk to your health care provider about ways to manage your pain that don?t involve prescription opioids. Some of these options may actually work better and have fewer risks and side effects. Options may include: ? Pain relievers such as acetaminophen, ibuprofen, and naproxen ? Some medication that are also used for depression or seizures ? Physical therapy and exercise ? Cognitive behavioral therapy, a psychological, goal-directed approach, in which patients learn how to modify physical, behavioral, and emotional triggers of pain and stress. IF YOU ARE PRESCRIBED OPIOIDS FOR PAIN: ? Never take opioids in greater amounts or more often than prescribed. ? Follow up with your primary health care provider. o Work together to create a plan on how to manage your pain. o Talk about ways to help manage your pain that don?t involve prescription opioids. o Talk about any and all concerns and side effects. ? Help prevent misuse and abuse o Never sell or share prescription opioids. o Never use another person?s prescription opioids. ? Store prescription opioids in a secure place and out of reach of others (this may include visitors, children, friends, and family). ? Safely dispose of unused prescription opioids: Find your community drug take-back program or your pharmacy mail-back program, or flush them down the toilet, following guidance from the Food and Drug (more content not included)... Normal [facility] PT & PTTon 02-17-2022 aPTT Coag (PPP) [Time] 32.9 second(s) Normal 25.1-36.5 [facility] Comment on above: Result Comment: Hepa rin therapeutic range (represented by Anti-Factor Xa activity of 0.2 - 0.4 U/mL) corresponds to PTT of 56.6 - 109.0 sec. Performed By: #### 2 [id number], [id number], [id number], [id number], [id number], [id number], [id number] #### [facility] [address] [place] [address] INR Coag (PPP) [Relative time] 1.0 {INR} Invalid Interpretation Code [facility] Comment on above: Result Comment: INR results are specifically intended to assess patients stabilized on long-term Anticoagulation therapy suggested INR?s ?Less Intensive Anticoagulation? 2.0 ? 3.0 Conventional Range 3.0 ? 4.5 Performed By: #### 2 [id number], [id number], [id number], [id number], [id number], [id number], [id number] #### [facility] [address] [place] [address] PT Coag (PPP) [Time] 12.1 second(s) Normal 10.2-12.9 [facility] Comment on above: Performed By: #### 2 [id number], [id number], [id number], [id number], [id number], [id number], [id number] #### [facility] [address] [place] [address] Troponin 0 Hr.on 02-17-2022 Troponin I.cardiac [Mass/Vol] 3.10 pg/mL Low 10.10-27.10 [facility] Comment on above: Result Comment: The 95% CI (Confidence Interval) PPV (Positive Predictive Value) for myocardial infarction in females is 38 pg/mL, in males 51 pg/mL. The results should be used in conjunction with clinical conditions of myocardial infarction. (Access High Sensitivity Troponin I Instructions For Use, Unique William, June 2018) Performed By: #### 2 [id number], [id number], 5360091, [id number], [id number], [id number], [id number] #### [facility] [address] [place] [address] XR Chest Single Viewon 02-17 XR Chest Single View Exam Date/Time: 02/17/2022 14:12 EDT Reason for Exam: Chest pain Report IMPRESSION: NO EVIDENCE OF ACTIVE CHEST DISEASE. CLINICAL HISTORY: Chest pain. COMMENT: AP portable. The heart is normal in size. The mediastinum is unremarkable. The lungs appear clear. No infiltration nor pleural effusion is evident. FINAL REPORT Dictated: 02/17/2022 2:26 pm Javier Sanon M.D. Signed (Electronic Signature): 02/17/2022 2:26 pm Signed by: Javier Sanon M.D. Transcribed by: DP Technologist: LEONIDES Uriarte [facility] eGFRon 02-17-2022 GFR/1.73 sq M.predicted among blacks MDRD (S/P/Bld) [Vol rate/Area] mL/min/{1.73_m2} Normal >=59 [facility] Comment on above: Order Comment: Order added by Discern Expert. Result Comment: eGFR is race adjusted. AA=. Performed By: #### 2 [id number], [id number], 3520500, [id number], 74045280, [id number], [id number] #### [facility] [address] [place] [address] GFR/1.73 sq M.predicted among non-blacks MDRD (S/P/Bld) [Vol rate/Area] mL/min/{1.73_m2} Normal >=59 [facility] Comment on above: Order Comment: Order added by Discern Expert. Result Comment: Review Assistant deborah kidney disease could be indicated at eGFR's of less than 60 mL/min/1.73m2. Kidney failure is indicated at less than 15 mL/min/1.73m2. Performed By: #### 2 [id number], [id number], 7934634, [id number], [id number], [id number], [id number] #### [facility] [address] [place] [address] POINT OF CARE GLUCOSEon - Glucose [Mass/Vol] 115 mg/dL Critically high 74-106 [facility] Comment on above: Performed By: #### P OCGLUC #### [facility] [address] [place], [place] [address] Dr. Francine GAMEZ Quick Testingon 2020 Result Negative [facility] Other Quick Strepon 10-14-2021 S. pyogenes Org specific cx Ql (Throat) Positive [facility] Other Quick Strep [facility] Other Coding Summaryon 06-08-2020 Coding Summary CODING DATE: 06/08/[address] [facility] STATUS: Home PAYOR: [employer] ADMIT DX: REASON FOR VISIT DX: R50.9 Fever, unspecified FINAL DX: PRINCIPAL: R50.9 Fever, unspecified SECONDARY: PYMT PROC APC STAT DESCRIPTION DOCTOR NAME DATE NOTE: The code number assigned matches the documented diagnosis and / or procedure in the patient's chart. However, the narrative phrase printed from the coding software may appear abbreviated, or result in slightly different terminology. Coded By: Ana Rosa Nogueira Date Saved: 06/08/2020 03:12 pm Normal [facility] - [facility]2020 Lab - Immunology/Serology Results [id number] [id number] [facility] Provider Orderson 05-29-2020 Provider Orders [id number] 72#1.00OTGTIFF [facility] Provider Orderson 05-26-2020 Provider Orders [id number] 1A#1.00OTGTIFF [facility] SARS-CoV-2 (COVID-19) PCRon 05-26-2020 COVID-19 PCR Not Detected Normal Not Detected [facility] Comment on above: Result Comment: Perf ormed at [facility] [address] [place], [place] [phone] Performed By: #### 6 [id number] #### [facility] (DEFAULT) [address] [place] [address] Vital Signs Date Time Vital Sign Value Performing Clinician Facility 10-14-2021 11:15-0500 Body height 165.1 cm Leonora De Leon Other [facility] Other 10-14-2021 11:15-0500 Body mass index (BMI) [Ratio] 43.26 kg/m2 Leonora De Leon Other [facility] Other 10-14-2021 11:15-0500 Body temperature 100 [degF] Leonora De Leon Other [facility] Other 10-14-2021 11:15-0500 Body weight 117.94 kg Leonora Polancomond Other [facility] Other 10-14-2021 11:15-0500 Respiratory rate 18 /min Leonora Polancomond Other [facility] Other 10-14-2021 11:15-0500 SaO2% (BldA) [Mass fraction] 98 % Leonora Polancomond Other [facility] Other Encounters Encounter Date Encounter Type Care Provider Facility Start: 07-26-2022 End: 07-26-[address] DOCTOR DANIELS Facility:[facility] Start: 01-25-2022 End: 01-25-[address] DOCTOR DANIELS Facility:[facility] Start: 12-19-2021 End: 12-19-2021 ambulatory LIV ALANIZ Facility:[facility] Start: 10-14-2021 (URG) Urgent Care Visit Leonora Haley [facility] [place] Start: 10-14-2021 End: 10-14-2021 ambulatory Leonora De Leon Other [facility] Other Payers Date Payer Category Payer Unknown [id number] .[id number] 1975 Unknown [id number] 1975 Unknown [id number] .[id number] 1959 Self-pay [id number] Unknown [id number] Social History Date Type Detail Facility Unknown if ever smoked [facility] Other Sex Assigned At Sex Assigned At Bir th [facility] Other Evaluation note 10-14-2021 Note Date & Type Note Facility 10-14-2021 Evaluation note Encounter Date Diagnosis Assessment Notes Sep, Contact with and (suspected) exposure to other viral communicable diseases (ICD-10 - Z20.828) Sep, Strep pharyngitis (ICD-10 - J02.0) Sep, Other Additional time spent conducting pre-visit phone call, screening for symptoms, instructions on social distancing, application and removal of PPE, and cleaning of examination room, equipment and supplies was preformed. Patient education given for testing methodology and results. Patient care instructions given in writting by [facility] Care At Home document. [facility] Other History general Narrative - Reported Note Date & Type Note Facility History general Narrative - Reported Type Surgical History cervical biopsy Surgical History kidney stone Hospitalization History See Above [facility] Other Summary Purpose Family History No Family History Records FoundNo Family History Records FoundNo Family History Records Found Advance Directives No Advanced Directives Records FoundNo Advanced Directives Records FoundNo Advanced Directives Records Found Additional Source Comments INFORMATION SOURCE (unrecogn ized section and content) DATE CREATED AUTHOR 06/09/2020 [facility] DATE CREATED AUTHOR AUTHOR'S ORGANIZ ATION 02/19/2022 [facility] DATE CREATED AUTHOR AUTHOR'S ORGANIZ ATION 07/29/2022 [facility] REASON FOR VISIT (unrecogniz ed section and content) #6 ENRIQUEZ/SILVER TERRELL SORENTO, SORE THROAT, CONGESTION FOR RECORDS PERTAINING TO PATIENTS WHO ARE OR HAVE BEEN ENROLLED IN A CHEMICAL DEPENDENCY/SUBSTANCEABUSE PROGRAM, SOME INFORMATION MAY BE OMITTED. This clinical summary was aggregated from multiple sources. Caution should be exercised in using it in the provision of clinical care. This summary normalizes information from multiple sources, and as a consequence, information in this document may materially change the coding, format and clinical context of patient data. In addition, data may be omitted in some cases. CLINICAL DECISIONS SHOULD BE BASED ON THE PRIMARY CLINICAL RECORDS. [facility]. provides no warranty or guarantee of the accuracy or completeness of information in this document.
[2024-03-16 07:10] LABS: Internal Control Within Normal Limits; Strep A Antigen Screen Negative
--- NOTE | 2024-03-16 07:15 | ED_ITS ---
HPI - URI/Sore Throat General Chief Complaint: Upper Respiratory Infection Stated Complaint: SORE THROAT Time Seen by Provider: 03/16/24 07:06 Source: patient History of Present Illness HPI Narrative: The patient is a 48 years old female coming to the ER with a difficulty swallowing as well as speaking that started after she started having sore throat on Friday which is almost 4 days ago. The patient has been having also some low-grade fever she still able to swallow water but with difficulty and pain, she is not spitting her own saliva. The patient is denying any other complaint but she did mention that she and she is sleep flat on her back she cannot breathe well. Patient mentioned having history of recurring tonsillitis Related Data Allergies Allergy/AdvReac Type Severity Reaction Status Date / Time codeine AdvReac Severe Vomiting Verified 11/02/23 06:37 Review of Systems ROS Status of ROS 10 or more systems reviewed and unremark able except as noted in history and below PFSH PFSH Social History Smoking status: Former smoker Exam Narrative Exam Narrative: Nurses notes and vital signs reviewed and patient is not hypoxic. General: Well-appearing and in no apparent distress. But have muffled voice Skin: Warm, dry, no pallor noted. No rash. Head: Normocephalic, atraumatic. Neck: Supple, non-tender. Eye: Pupils are equal, round and EOMI. No scleral icterus. Ears, Nose, Mouth, and Throat the patient oral mucosa is moist but the uvula is in the center with the significantly enlarged tonsils that are meeting in the middle, no exudate can be seen on examination the patient have a muffled voice. Respiratory: No accessory muscle use or respiratory distress. Lungs are clear to auscultation, no wheezing, rales or rhonchi Chest Wall: no tenderness Back: No midline thoracic or lumbar vertebral tenderness. No CVA tenderness Musculoskeletal: normal ROM, no calf or popliteal tenderness, no lower extremity edema/swelling GI: Abdomen is soft, non-distended. Normal bowel sounds. No masses appreciated. No tenderness to palpation. No rebound, guarding, or rigidity noted. Neurological: A&O x4. No cranial nerve dysfunction observed. No truncal ataxia. Moves all extremities. Sensation intact. Psychiatric: Cooperative and interactive. Normal mood and affect. Constitutional Vital Signs, click to edit/add: Last Vital Signs Temp 99.0 F 03/16/24 08:50 Pulse 97 H 03/16/24 06:45 Resp 18 03/16/24 06:45 BP 173/79 H 03/16/24 08:50 Pulse Ox 99 03/16/24 08:50 O2 Del Method Room Air 03/16/24 06:45 Course Vital Signs Vital signs: Vital Signs Temperature 100.7 F H 03/16/24 06:45 Pulse Rate 97 H 03/16/24 06:45 Respiratory Rate 18 03/16/24 06:45 Blood Pressure 180/93 H 03/16/24 06:45 Pulse Oximetry 100 03/16/24 06:45 Oxygen Delivery Method Room Air 03/16/24 06:45 Temperature 99.0 F 03/16/24 08:50 Pulse Rate 97 H 03/16/24 06:45 Respiratory Rate 18 03/16/24 06:45 Blood Pressure 173/79 H 03/16/24 08:50 Pulse Oximetry 99 03/16/24 08:50 Oxygen Delivery Method Room Air 03/16/24 06:45 MDM - URI/Sore Throat MDM Narrative Medical decision making narrative: Upon presentation due to the narrowing of the airway there was concern for compromise of the airway, but after the patient received Decadron as well as Toradol she was feeling much better still having muffled voice. And she never had drop in her pulse ox and no difficulty breathing. CBC showing leukocytosis blood culture obtained the patient was covered with Unasyn The chemistry showing no acute pathology Patient blood pressure was noted to be elevated she does not have a primary care doctor and she was not diagnosed with high blood pressure she will be started on hydralazine 25 mg right now Right now the patient CAT scan of the neck and soft tissue showed no abscess but there is a narrowing of the airway Strep test was initially negative but the patient presentation slight suspicion of of bacterial tonsillitis specially with the picture of sepsis The patient case was discussed with , who agreed in the above-mentioned plan of admitting the patient for further evaluation and multiple dose of steroid and IV antibiotic Clinical improvement and patient presentation with medication Lab Data Labs: Lab Results 03/16/24 03/16/24 03/16/24 Range/Units 06:50 07:22 08:14 WBC 22.1 H (4.0-11.0) 10^3/uL RBC 5.02 (4.20-5.40) 10^6/uL Hgb 13.7 (12.0-16.0) g/dL Hct 42.9 (36.0-48.0) % MCV 85.5 (81.0-99.0) fL MCH 27.3 (26.7-34.0) pg MCHC 31.9 (29.9-35.2) g/dL RDW 13.7 (11.0-15.0) % Plt Count 254 (150-450) 10^3/uL MPV 10.5 (9.5-13.5) fL Neut % (Auto) 85.9 H (43.0-75.0) % Lymph % (Auto) 6.9 L (20.5-60.0) % Gulf % (Auto) 4.9 (1.7-12.0) % Eos % (Auto) 0.6 L (0.9-7.0) % Baso % (Auto) 0.5 (0.2-2.0) % Neut # (Auto) 19.0 H (1.4-6.5) 10^3/uL Lymph # (Auto) 1.5 (1.2-3.8) 10^3/uL Gulf # (Auto) 1.1 H (0.3-0.8) 10^3/uL Eos # (Auto) 0.1 (0.0-0.7) 10^3/uL Baso # (Auto) 0.1 (0.0-0.1) 10^3/uL Abs Immat Gran (auto) 0.26 H (0.00-0.03) 10^3/uL Imm/Tot Granulo (auto) 1.2 H (0.0-0.5) % Sodium 133 L (136-145) mmol/L Potassium 4.0 (3.5-5.1) mmol/L Chloride 96 L (98-107) mmol/L Carbon Dioxide 25.0 (21.0-32.0) mmol/L Anion Gap 16.0 BUN 6.0 L (7.0-18.0) mg/dL Creatinine 0.98 (0.55-1.02) mg/dL Est GFR ( Amer) >60 (>=60) Est GFR (Non-Af Amer) >60 (>=60) BUN/Creatinine Ratio 6.1 Glucose 199 H (74-106) mg/dL Lactate 3.2 H* (0.4-2.0) mmol/L Calcium 8.9 (8.5-10.1) mg/dL Total Bilirubin 0.7 (0.2-1.0) mg/dL AST 18 (15-37) U/L ALT 33 (14-59) U/L Alkaline Phosphatase 86 (46-116) U/L Total Protein 8.0 (6.4-8.2) g/dL Albumin 3.2 L (3.4-5.0) g/dL Globulin 4.8 g/dL Albumin/Globulin Ratio 0.7 Serum HCG, Qual Negative (NEGATIVE) Streptococcus Screen Negative Discharge Plan Discharge Chief Complaint: Upper Respiratory Infection Clinical Impression: Acute bacterial tonsillitis, Airway stricture Sepsis Qualifiers: Sepsis type: sepsis due to unspecified organism Sepsis acute organ dysfunction status: without acute organ dysfunction Qualified Code(s): A41.9 - Sepsis, unspecified organism Patient Disposition: Admitted As Inpatient Time of Disposition Decision: 09:42
--- NOTE | 2024-03-16 07:16 | CT_ITS ---
The [address] [address] Patient Name: LUI SAM MRN: [id number] date: 1975 Sex: F Assigned Patient Location: ER Current Patient Location: ER Accession/Order Number: [id number] Exam Date: 03/16/2024 08:29 Report Date: 03/16/2024 09:27 At the request of: JERMAIN BRISENO Procedure: CT soft tissue neck w con EXAMINATION: CT soft tissue neck w con HISTORY: tonsillitis COMPARISON: No relevant comparison available. TECHNIQUE: Axial, Coronal, and Sagittal CT images created with IV contrast. Dose reduction techniques were achieved by using automated exposure control and/or adjustment of mA and/or kV according to patient size and/or use of iterative reconstruction technique. FINDINGS: NASOPHARYNX: No asymmetry of the fossae of Rosenmuller and torus tubarius. ORAL CAVITY: No visible mass. OROPHARYNX: Moderate bilateral facial and lingual tonsils hypertrophy. HYPOPHARYNX: No mass or other visible lesion. LARYNX: No mass or asymmetry of the vocal cords. SINUSES: No significant fluid or mucosal thickening. NECK GLADS: No visible abnormality of the parotid, submandibular, and thyroid glands. LYMPH NODES: Bilateral enlarged cervical lymph nodes the largest on the right measuring 1.6 x 1.2 cm axial image #33 largest on the left measuring 2.0 x 1.2 cm, axial image 39 VASCULATURE: No suspicious abnormality. BONES: No significant osseous lesions. OTHER: No additional imaging findings. CT/CT soft tissue neck w con IMPRESSION: Moderate adenoid and palatine tonsillar hypertrophy with significant narrowing of the airway. No tonsillar abscess Electronically authenticated by: SUYAPA BHATT Date: 03/16/2024 09:27
[2024-03-16 07:32] LABS: Basophils Absolute Auto 0.1 10^3/uL (0.0-0.1); Basophils Percent Auto 0.5 % (0.2-2.0); Eosinophils Absolute Auto 0.1 10^3/uL (0.0-0.7); Eosinophils Percent Auto 0.6 % (0.9-7.0); Hematocrit 42.9 % (36.0-48.0); Hemoglobin 13.7 g/dL (12.0-16.0); Immature Granulocytes Abs Auto 0.26 10^3/uL (0.00-0.03); Immature Granulocytes Pct Auto 1.2 % (0.0-0.5); Lymphocytes Absolute Auto 1.5 10^3/uL (1.2-3.8); Lymphocytes Percent Auto 6.9 % (20.5-60.0); Mean Corpuscular HGB Conc 31.9 g/dL (29.9-35.2); Mean Corpuscular Hemoglobin 27.3 pg (26.7-34.0); Mean Corpuscular Volume 85.5 fL (81.0-99.0); Mean Platelet Volume 10.5 fL (9.5-13.5); Monocytes Absolute Auto 1.1 10^3/uL (0.3-0.8); Monocytes Percent Auto 4.9 % (1.7-12.0); Neutrophils Percent Auto 85.9 % (43.0-75.0); Platelet Count 254 10^3/uL (150-450); Red Blood Count 5.02 10^6/uL (4.20-5.40); Red Cell Distribution Width 13.7 % (11.0-15.0); White Blood Count 22.1 10^3/uL (4.0-11.0)
[2024-03-16] MEDS: 0.9 % SODIUM CHLORIDE 1,000 ML 1000 ML IV (07:34)
[2024-03-16] MEDS: DEXAMETHASONE SOD PHOS 10 MG/ML VIAL IV ×2 (07:34→09:53)
[2024-03-16] MEDS: AMPICILLIN SODIUM/SULBACTAM NA 3 GM in 0.9 % SODIUM CHLORIDE 100 ML IV ×3 (07:34→21:18)
[2024-03-16 07:47] LABS: Alanine Aminotransferase 33 U/L (14-59); Albumin Globulin Ratio 0.7; Albumin Level 3.2 g/dL (3.4-5.0); Alkaline Phosphatase 86 U/L (46-116); Aspartate Amino Transferase 18 U/L (15-37); BUN Creatinine Ratio 6.1; Bilirubin Total 0.7 mg/dL (0.2-1.0); Calcium 8.9 mg/dL (8.5-10.1); Chloride 96 mmol/L (98-107); Estimated GFR (African America >60 (>=60); Estimated GFR (Non-African Ame >60 (>=60); Globulin 4.8 g/dL; Glucose 199 mg/dL (74-106); Sodium 133 mmol/L (136-145)
[2024-03-16 07:54] LABS: HCG Qualitative NEGATIVE (NEGATIVE)
[2024-03-16] MEDS: KETOROLAC TROMETHAMINE 30 MG/ML VIAL IVP ×4 (08:17→22:36)
[2024-03-16] MEDS: FAMOTIDINE/PF 20 MG/2 ML VIAL IV (08:17)
--- NOTE | 2024-03-16 08:32 | PC.NURSE ---
patient states she forgot to mention possible skin infection on left leg. underside of left foot is dry, scally, rash. patient states she has had off and on for 2 years. patient also has area of redness from left ankle to mid calf. states she has had cellulitis off and on since she had a tattoo on her left foot 2 years ago.
[2024-03-16 09:25] LABS: Lactate/Lactic Acid 3.2 mmol/L (0.4-2.0)
[2024-03-16] MEDS: HYDRALAZINE HCL 25 MG TABLET PO (09:52)
[2024-03-16] MEDS: SODIUM CHLORIDE 1133.98000000000002 ML IV (09:52)
--- NOTE | 2024-03-16 10:07 | P.HP_ITS ---
HPI H&P: HPI History of Present Illness Chief complaint: SORE THROAT Narrative: Patient presented to the emergency room with a history of significant pharyngitis, recurrent, this was her worst episode yet, difficulty swallowing secondary to the swelling and pain. In ER, workup showed significant leukocytosis, CT scan of the neck showed significant narrowing but no abscess formation. Patient was given Decadron and IV route Unasyn. Did have some improvement in her symptoms currently. With the severity of the narrowing, recommended admission to the intensive care unit. When I saw patient in the emergency room, she does have softer voice consistent with severe pharyngitis. Difficulty swallowing secondary to the pain. Pressure she feels is somewhat better with current treatment. Patient denies any other complaints. No chest pain, no shortness of breath. Patient will be admitted to the intensive care unit due to the severity of the narrowing noted on CT scan. Opioid HPI Opioid Management Most Recent Opioid Data: Last Pain Scale 8 06/12/23 09:54 Review of Systems ROS Status of ROS 10 or more systems reviewed and unremark able except as noted in history and below PFSH PFSH Social History Smoking status: Former smoker Meds Home Medications and Allergies Allergies Allergy/AdvReac Type Severity Reaction Status Date / Time codeine AdvReac Severe Vomiting Verified 11/02/23 06:37 Exam Constitutional Vital Signs, click to edit/add: Last Vital Signs Temp 99.0 F 03/16/24 08:50 Pulse 97 H 03/16/24 06:45 Resp 18 03/16/24 06:45 BP 173/79 H 03/16/24 09:52 Pulse Ox 99 03/16/24 08:50 O2 Del Method Room Air 03/16/24 06:45 Documenting provider has reviewed patient's vital signs: yes Common normals: apparent distress (Painful distress secondary to swallowing) Respiratory Common normals: normal respiratory effort ( Hot potato breath ), no retractions and clear to auscultation bilaterally Effort & inspection: able to speak in complete sentences; no stridor Cardio Common normals: regular rate and regular rhythm GI Common normals: Normal to inspection, nondistended, normoactive bowel sounds present Extremity Common normals: abnormal to inspection (Chronic venous stasis dermatitis) Neuro Common normals: oriented x3 and CN's II-XII intact bilaterally Sensorium/orientation: awake, alert, oriented to person, oriented to place and oriented to time; orientation not impaired Results Labs Labs: Short CBC 03/16/24 Range/Units 07:22 WBC 22.1 H (4.0-11.0) 10^3/uL Hgb 13.7 (12.0-16.0) g/dL Hct 42.9 (36.0-48.0) % Plt Count 254 (150-450) 10^3/uL BMP 03/16/24 07:22 Sodium 133 L Potassium 4.0 Chloride 96 L Carbon Dioxide 25.0 BUN 6.0 L Creatinine 0.98 Glucose 199 H Calcium 8.9 Liver Function 03/16/24 Range/Units 07:22 Total Bilirubin 0.7 (0.2-1.0) mg/dL AST 18 (15-37) U/L ALT 33 (14-59) U/L Alkaline Phosphatase 86 (46-116) U/L Albumin 3.2 L (3.4-5.0) g/dL Assessment and Plan Assessment and Plan (1) Airway stricture: (2) Sepsis: Qualifiers: Sepsis acute organ dysfunction status: without acute organ dysfunction Sepsis type: sepsis due to unspecified organism Qualified Code(s): A41.9 - Sepsis, unspecified organism Plan Fever, uncontrolled hypertension, leukocytosis, hyperglycemia, lactic acidosis secondary to severe pharyngitis with severe airway narrowing noted on CT scan, all resulted in severe sepsis. Blood cultures have been obtained, fluid boluses have been given, IV antibiotics have been started, repeat lactate is still pending, with severe narrowing patient will be admitted to the intensive care unit for close observation. Decadron and Toradol given in ER seem to be helping so far. Hyperglycemia-possible undiagnosed diabetes mellitus, patient with morbid obesity, likely to be worse with the Decadron. Monitor with Accu-Cheks and placed on insulin sliding scale Uncontrolled hypertension-likely secondary to the pain, will monitor with as needed medications, may need something at discharge Hyponatremia likely secondary to dehydration-IV fluids Venous stasis dermatitis-will address as an outpatient Admission status: Placed patient in the intensive care unit as observation status, with the severity of her symptoms she may need to be watched overnight, chance she could be discharged home later today if feels much improved. No abscess noted on CT scan but concerning for possible progression.
[2024-03-16] MEDS: DIPHENHYDRAMINE HCL 50 MG/ML (1ML) VIAL 25 MG IV ×2 (11:05→22:36)
[2024-03-16 11:23] LABS: Glucometer 158 mg/dL (74-106)
--- OUTSIDE RECORDS SUMMARY | 2024-03-16 11:27 | XMS_ITS | CCD ---
Author Organization [facility] Care Team Providers Care Flower Buncher Or Picker Name Role Phone Leonora De Leon Unavailable LIV ALANIZ Admitting Unavailable LIV ALANIZ Attending Unavailable [facility] Primary Care Unavailable NEMESIO GUTIERREZ Consulting Unavailable [facility] [place] Primary Care Unavailable [facility], DR SCHRADER Admitting Unavailable ANA, DR SCHRADER Attending Unavailable ANA, DR SCHRADER Consulting Unavailable [facility] Primary Care Unavailable LIV ALANIZ [...] 30 mg oral tablet (1 source) Uncompetitive P-lrjdzl-U-aspartate Receptor Antagonist, Sigma-1 Agonist Start: 01-31-2020 [place] DMT 30-30 MG 1 tablet Orally every [...] Value Interpretation Reference Range Facility Covid[facility]19 [facility]on SARS-CoV-2 (COVID-19) RNA CARLITO+probe Ql (Unsp spec) Not detected Normal NOT DETECTED [facility] Comment on above: Result Comment: When [...] for this test is supported by the Bee Producer of Health and Human Service's declaration that [...] longer be used). Performed By: #### [facility] #### [facility] [address] [place] [address] Dr. Francine Ruiz XR CHEST 1 Von [...] ARMANI SANTOS Date: 2022-07-26 11:40 Normal [facility] Coding Summary.on 02-18-2022 Coding Summary. [id number] GXl1mTd+PGhlYWQ+PE1 ZIYTbF49zmJZrvL7UH1 gOJD6XQHGOFVPXPC3JH R8tsHZ2PTkiM1AspdBj XyvooKJpVH90WXs0ZTL 2yQhcVVdsdE9vgUQzV8 b5XwFpKW20wZ82PRihX WDyGoG5OsPoicwplPOa M4rpByJiqWLqMbw+PHR hYmxlIHdpZHRoPScxMD PsZfNhqOacUP7mNl6eW GVyLWNvbGxhcHNlOiBj x7liVOGoGUcdBV7kkVr rA4QeoKQ4AUOkx4u0Fp 48dHI+VLJzCJQ6xYypH Xsjx521MhKwg1tuKFI7 dPDvNSblAJT8N60fn7K 8HYSwUTBhUEL9vTL8xA 3vvGtfhgucO7YjaCKrS sK6UTP5gZYadH4apPur isxauN9yMdh+N74LBX0 QLGISIM5THxh8O2BaWc wvdHI+MH43XZJgJB00o ULhaORqz9xorGg3LsHb CQXjEWH5qLnwAHftu8J lYSIsG39dqYWze8O8XF AabAobeNOnArHylXU2w J1gWEuoovano9pvndgy Sijdv7xsab10uQ38S51 vZXnoXFHcINQ2IREcTR VthTioaw0ugV7sNx1+I Imbg3yrh0eteAz8GvWi CYGcaeItfEchPTE5z5N qCp47E8MidWczs9BdDx w0fe84lZGkt5K6cSO7V ZycBIYcrO3tBHmlXoT5 ORSzEvBroJ46kFIfJEy lYt6xzNdzqScxQR2lTK RsjnfeMFVtuW8nLLUef CAotBipJF5rVRWilaey n809WvCeSIA9VOOetSE kW1VfdQ0dZfVdCVVdOO TqR0SzrNEhUHvqZ907V RauYjD0OJXdcnVtB6Gp NRTewMxmRxD5l4L6Ld4 Zp0WmfkwaPUU8HKqiFZ X0AlJ5QjAjOyL8Z8ZwJ tv4IUPtxNgdJH9yR4Lw TBPxcgfesmfxiMC5BXU wGXDqyR34wHFuMPsmWi 4nv6K2p276BWYpOEUes S18Xb6wwOagLAAdjPWR rA7pjmbew5pnvlsuIeQ uYBKxBLx6ZZy3ZVRccW upUvFqXLZ6UxY4QEB9c BGchL0jdZkmicazlQ1e Oyc+H49tlF0sJGE6KXA 7sknzWFUisxNsZS98ZH 96A3YgBckyaXXciYV+P THoniLzmEabWI8vSnIp g0shc4NyKAncF3YfLKD qCGqzOvq9ZEJjMUJ8pJ X4qN0xZHBwOVdyw2L7j YO3A7CufdMbhb2tw5sj TQVpGIruS86jrNXbx6S 2LTXqqXS0JDOuhGwrYl AhrP22Bdt+PGNvbGdyb 5GcIvjhw0gcf9xdwPr8 IjMwJSIgdmFsaWduPSJ 5c8IgMq05T01zVZeeUJ RoPSIxNSUiIHZhbGlnb h8elQ3xNt8+PGNvbCB3 cQJ6iP9cFPEzGuX8RYc zN725RxMmlBMwTroar3 bou4dkdYs4LzWsWOMkc lCdlZdmJAE4r0AbCo19 P59uCWnzUQAjQOQnKXT jQOJodDluoc2tyI1hDu 8+TW0jv5fmnc11nO35j HI+VUKrLKD4kWuiDLoh XRFznK9pDCtbEpY8JQX lDqEawI69xEHzYVgeWs 7dnFbnxHrtUD7mLKGgc sunu043ZfUqb9qbVOIg jMAtUHqoFWF0Q25ql6W 4EGYwSBLtYNF0nGH3jD 1hbGlnbjogbGVmdDsgd nRkeGxtJBwwSOpnP380 IHRvcDsnPlBhdGllbnQ iCnXkBDc0H1ZpMwt7TW LjmNhmWM3egELoZDnhL r6ogSwwnNuhUE9lUZYe nugxm014MnEcq8vgDSZ meJPhYUyiSIE3N87fe5 C5MAOwDZDjKFE0jKZ7h Z7mbDjvmxkwzGKkoLgl tbZwrUjaRKflWUmfO68 6IHRvcDsnPkJpcnRoIE ZwgTV4DS16ZJ65bHLes 2B7iBC2O5WsSQVmfcmk pzkitIM1FEKlZCHusA9 7Te6urLyjZw1nPZLkRR U5BQOlrVRkK1AniA1iW kPcVBPnIPTvJ8XuyCIi YYbfW980LAdeRgA1IUN thnMdO7LxSKNkqSnzDf F7y0X9Qv1BR5W7FT53Q M78eMZuu9L4gWB0G3Dr VHHjqimsscpgeSQ3NOT cMCFtsT72Ey9vdSodRe 6jWWIpPIL0KPPanEXkW 2DepI0wWgQuMKFlSDZc Y5WncXVrLImyE077XBp xFpV5VAMpqbJxE9QcJH IncFacAqQ8r8P5Za8YT Sa2ZB71ZN75pAZzn1R1 pUI7D4FrANWobqthwkt fvAT1UMJrLNMdnT16Nx 1toCrmEk3iNYHoKKX6U YYafLCzE1RjoV4sXyId YVUsGOIsF1CjlXOkYMd sD344DOqsGbM3MAKjcs CqN4LnMGVooKbqOjT6p 3E2Mi3DBQPwFN06QUH1 sOW9RR89KU12J4VoQmn vdGFibGU+PHRhYmxlIH dpZHRoPScxMDAlJyBzd ZxfER1qEt1hCOHuDTOk sGanuHRsWqWso1nlOTK jZTebKI3zoJjkN5FlpS T1EIHet4v4Aw02B84iC 3JvdXA+VKHrxYL1jLM4 dR7jLvJzZmL7COnxN26 6NgNytIVmTbmlm9vil1 qcoOz0JkX0OWOxhmTov PbcYCV9l6GtJt48I89r IHdpZHRoPSIxNSUiIHZ hfNomcc2vkN4aRe0+PG UehDI0wTZ2iM5wUpHnQ qR6XCsxC864JaUfbMFa Ifxuq4pwa9hvpKd2XlU yTUOankDigGmyHOL3k1 UyEs89M8NghTbmy9ObS ke1jn69kFHyq6R5xVW9 A0LlZRThmbjuiZAuiGw lZZ6xYXRqyufeXPZpsX 3mNSPkD1w2AnPeCnY6Z TaqL4RlpjH8ZPFlbNLa XMnnSAZ6P61or8E7WWW pZSSsWDK8dZX4wL8liX lnbjogbGVmdDsgdmVyd UpvQHpmEDdaD793BWEn vRdxCXWkeU8fZQJmmPV laHpuYC6hOXDvjyhtLu lKWFtFMtppLAOEXg3lY TwvdGQ+UBIoNEX7kOzn PFpyUJYbbK9kXQDvU7m 5FvDpCpJ0ZYpgA2OvGY EzypxsOn07cV8iUiPuY sE8GYlwF8XdobM6RENm eHRmNJvrOAR8W77ft8F 7UBYuNXXrLBT2xZW7tR 1hbGlnbjogbGVmdDsgd xQyfAhyEOwxKHdtU772 VEGeyOkyUlB1QrG1MsD 4VqB9F8MmYur9JZNtcN vdIM5kkQPuMTzqJw9qs QvpyTtoHL6yENXeumjn CVCrmE2sWZHgmNVrgQx lXR2aNTBajknry791Hj OjDJU9TAQrcUBoH4Jkk G4nMvUeUKYnXMKkJ7Ao dFMkIKtdU807KMrqIbX 5WQMompJpP0XaSDLbqF srOaC8u1T4Bh32XnIOA WFyczwvdGQ+PHRkIHN0 xTkwTOsiNESquW8tEUY iT2f8VnWjRmK2EWyiH4 ViSDApiivmGi43oC6jW nXzAzS0QDguG4KrjmH9 IMAsyFQmHDbiZEB7G22 yd3R3VIYyWPZiOOB6aQ O4iH5ioFhdrkcijUSzi DsgdmVydGljYWwtYWxp Y734MJCpsDrhTvVkoPG sZTwvdGQ+VUXpKRF5gX zfEZmoSRHbsC2pRKXgH 7e9ZtZjOjD6JUkvW8Tp VZXunjinJf16bQ9kTaZ nUeE7WTopK5DnjfO5OJ GnoZQqETslGGM9G99yn 5W2OFUnKIFmVZC7sMO1 sJ5qtPhrqgkdtUXblYc gdmVydGljYWwtYWxpZ2 46IHRvcDsnPkVtZXJnZ D5uoQxgxKY+AA88ae50 E2ZnIlbyEye5OFYcSVU 1eUK6lA0yPPIoNLzro0 B9hTV4I1MrzoRuaa7wk 4ukLIUyHQtaN07bzWXg l7T1KEXavTR3OQYgyYl mJzFivH99Ege+PGNvbG bsv7DgYiade6als6tlk Dp1PbEgXWVmuuWnqQuf KET0f0VkOj34C48qJHo pZHRoPSIzMCUiIHZhbG ouny1mxS8jVl3+PGNvb FQ8sQN4tQ5xIsNrNiC2 SPxhH591ByVeuYRwLfj wc0nkt9jxdDs8CyFkKA NksfMesIekWWA8g9RhR w65Y7HdsUnsy8AsAae8 he07rONbt8V2lHM6G4H hZGRpbmctbGVmdDogMC 7oRKDeotpuVBBstT9uA OAmS8c4TjPhIxZ5IWra K8PswtM3KFSaoNKsPXX gkDUEsH9fuhaqt4dken xdByOrGKDlADg8XHz7X UXhrZmzWyDgWNT3FkY0 YDK0dMCwyW9itEiecaj frY7rEal+XQu0f7zwbL NlOH9bvWM8QV01HA99d GUjh6W9eOB6B6QpTGEe dvdsspabuLR2YZDoPBE ptF26Or9ptJjpMt4kVH XpQZF7BQVpeZQvE5Sir B1vUrTwVNHrIACrV0Xu mKAwGYxxG237ORjjAbC 8YGVwlpEdB6YpXCEsvO mzSaU2l7M0Eb6PIR65Z F49DP68nMKmk8X4uSJ9 B1SwFKMtmdaiisseaKP 9UGXuXTMiaX19Kr1ngC adWa0kFEFeWMG5IZZcl QBqG0QfwC8iJtLbFBWx BBVzV8GceKMwOEudO48 7AXoyIfX0EHLlpeQvO9 VsQWAilOwcHcJ5k7F0D y7UVf14UL15HA43iCMq k7Q9dEI9H4DfBKSgbju poordwSW2XRNcKCVkdI 19Pm8npWhcSp4iTOIsW QF3SHGpgUTpB7DnwJ6o WdKzIAUoKFAcV8SmfPT fTHdkS071WZnpFfP0OE DmaaPsI6AyGMNybDueH aX7u1T4Ci7TTGpaqmr9 U1RjJzucmSM+TK49WKQ zDZ52yXRciHGbo3dsuG y4DbZtIMFaDSU1dKtzW Ahkd6SmEXMfJ34hvVEy c2U6 (more content not included)... Normal [facility] Auto Diffon 02-17-2022 Basophils/100 WBC (Bld) 1.1 % Normal 0.0-2.0 [facility] Comment on above: Order Comment: Order Added by Discern Expert. Performed By: #### 2 763972, 2238838, 4545044, 84267134, 86969019, 25235473, 83337013 #### [facility] [address] [place] [address] 57222 Basophils/Leukocyte s Auto (Bld) [Pure # fraction] 0.2 E9/L Normal 0.0-0.2 [facility] Comment on above: Order Comment: Order Added by Discern Expert. Performed By: #### 2 880013, 6402749, 3564766, 72051177, 49980996, 28989674, 73087690 #### [facility] [address] [place] [address] 69334 Eosinophils/100 WBC (Bld) 1.4 % Normal 0.0-8.0 [facility] Comment on above: Order Comment: Order Added by Discern Expert. Performed By: #### 2 476154, 8708130, 2560491, 91981285, 89557883, 62522364, 08993839 #### [facility] [address] [place] [address] 42961 Eosinophils/Leukocy hemant Auto (Bld) [Pure # fraction] 0.2 E9/L Normal 0.0-0.5 [facility] Comment on above: Order Comment: Order Added by Discern Expert. Performed By: #### 2 431063, 5570554, 4086128, 22474948, 27437662, 05413586, 54075818 #### [facility] [address] [place] [address] 88486 Lymphocytes/100 WBC (Bld) 21.7 % Normal 14.0-50.0 [facility] Comment on above: Order Comment: Order Added by Discern Expert. Performed By: #### 2 870357, 0100770, 4140365, 72898791, 11900262, 13104190, 28064312 #### [facility] [address] [place] [address] 87450 Lymphocytes/Leukocy hemant Auto (Bld) [Pure # fraction] 3.0 E9/L Normal 1.0-4.0 [facility] Comment on above: Order Comment: Order Added by Discern Expert. Performed By: #### 2 976671, 0271641, 6798114, 82379128, 52800232, 19631951, 41025629 #### [facility] [address] [place] [address] 84839 Monocytes/100 WBC (Bld) 4.6 % Normal 4.0-14.0 [facility] Comment on above: Order Comment: Order Added by Discern Expert. Performed By: #### 2 707193, 3675772, 5305687, 11868680, 73881482, 53397355, 28678416 #### [facility] [address] [place] [address] 58759 Monocytes/Leukocyte s Auto (Bld) [Pure # fraction] 0.6 E9/L Normal 0.2-1.0 [facility] Comment on above: Order Comment: Order Added by Discern Expert. Performed By: #### 2 254162, 4486507, 2694680, 99468706, 41141034, 25522307, 53574896 #### [facility] [address] [place] [address] 12496 Neutrophils/100 WBC (Bld) 71.2 % Normal 36.0-75.0 [facility] Comment on above: Order Comment: Order Added by Discern Expert. Performed By: #### 2 209292, 2391357, 7455131, 55846129, 26366805, 98475713, 74591423 #### [facility] [address] [place] [address] 17972 Neutrophils/Leukocy hemant Auto (Bld) [Pure # fraction] 9.9 E9/L High 2.0-7.5 [facility] Comment on above: Order Comment: Order Added by Discern Expert. Performed By: #### 2 136567, 9193192, 1169854, 00916255, 31827188, 56308799, 18478600 #### [facility] [address] [place] [address] B hCG Qualon 02-17-2022 Beta hCG Ql Negative Normal [facility] Comment on above: Performed By: #### 2 388457, 6727536, 6090254, 25343674, 85136665, 47180268, 89851715 #### [facility] [address] [place] [address] BMPon 02-17-2022 Creatinine [Mass/Vol] 0.6 mg/dL Normal 0.5-1.3 [facility] Comment on above: Performed By: #### 2 341096, 4891858, 6508933, 05941381, 95158370, 17336401, 77026372 #### [facility] [address] [place] [address] Urea nitrogen [Mass/Vol] 7 mg/dL Normal 5-21 [facility] Comment on above: Performed By: #### 2 763654, 8215362, 6682511, 85534975, 51657343, 26502237, 73286351 #### [facility] [address] [place] [address] Urea nitrogen/Creatinine [Mass ratio] 12 No Units Normal 10-20 [facility] Comment on above: Performed By: #### 2 592500, 7764446, 6902181, 86701394, 21393835, 17455406, 17858132 #### [facility] [address] [place] [address] Anion gap [Moles/Vol] 12 mmol/L Normal 6-16 [facility] Comment on above: Performed By: #### 2 580222, 8254565, 5044889, 41541032, 51032875, 13736658, 06696201 #### [facility] [address] [place] [address] Calcium [Mass/Vol] 8.7 mg/dL Low 8.9-11.1 [facility] Comment on above: Performed By: #### 2 659652, 7830458, 9206526, 80481566, 81721546, 96985741, 91217240 #### [facility] [address] [place] [address] Chloride [Moles/Vol] 101 mmol/L Normal 101-111 [facility] Comment on above: Performed By: #### 2 271618, 6694937, 3517916, 40441124, 91094874, 71779057, 74251718 #### [facility] [address] [place] [address] CO2 [Moles/Vol] 26 mmol/L Normal 21-31 [facility] Comment on above: Performed By: #### 2 692041, 8668787, 6943511, 95798472, 45896238, 27607146, 47313527 #### [facility] [address] [place] [address] 55124 Glucose [Mass/Vol] 95 mg/dL Normal 55-199 [facility] Comment on above: Result Comment: If t his glucose result represents a fasting glucose, interpretation should refer to the following reference range: 55-99 mg/dL Performed By: #### 2 644046, 1446004, 7448611, 10238105, 44713147, 45263236, 22683052 #### [facility] [address] [place] [address] 16982 Potassium [Moles/Vol] 3.6 mmol/L Normal 3.5-5.3 [facility] Comment on above: Performed By: #### 2 771879, 5742042, 6202627, 33731994, 80558355, 10735772, 97474168 #### [facility] [address] [place] [address] Sodium [Moles/Vol] 135 mmol/L Normal 135-145 [facility] Comment on above: Performed By: #### 2 834871, 0540436, 5306550, 58164111, 57618436, 48584645, 62973338 #### [facility] [address] [place] [address] 33393 CBC w/ Auto Diffon Erythrocyte distribution width (RBC) [Ratio] 15.2 % High 10.9-14.2 [facility] Comment on above: Performed By: #### 2 316271, 3720749, 6250400, 19346655, 06299537, 51822071, 52182916 #### [facility] [address] [place] [address] 92764 Hematocrit (Bld) [Volume fraction] 40.8 % Normal 34.0-46.0 [facility] Comment on above: Performed By: #### 2 772700, 0170009, 7769353, 25571716, 64120378, 12666992, 78445498 #### [facility] [address] [place] [address] 89294 Hemoglobin (Bld) [Mass/Vol] 13.7 g/dL Normal 12.0-16.0 [facility] Comment on above: Performed By: #### 2 486243, 0393357, 2485823, 19405349, 43430945, 62246559, 21451685 #### [facility] [address] [place] [address] 69344 MCH (RBC) [Entitic mass] 27.5 pg Normal 27.0-34.0 [facility] Comment on above: Performed By: #### 2 357570, 8962277, 5731792, 57963373, 11639318, 00489276, 28082628 #### [facility] [address] [place] [address] 70327 MCHC (RBC) [Mass/Vol] 33.5 g/dL Normal 31.4-36.0 [facility] Comment on above: Performed By: #### 2 900384, 1594216, 3563062, 26095477, 27703211, 62686552, 82620083 #### [facility] [address] [place] [address] 97845 MCV (RBC) [Entitic vol] 82.1 fL Normal 80.0-100.0 [facility] Comment on above: Performed By: #### 2 005492, 1389491, 5257262, 50519821, 11391220, 24334380, 65255218 #### [facility] [address] [place] [address] 41589 Platelet mean volume (Bld) [Entitic vol] 9.0 fL Normal 6.4-10.8 [facility] Comment on above: Performed By: #### 2 468117, 8426753, 5859683, 32937769, 05964502, 41563298, 27911966 #### [facility] [address] [place] [address] Platelets (Bld) [#/Vol] 269.0 E9/L Normal 150.0-500.0 [facility] Comment on above: Performed By: #### 2 179525, 2485178, 8604003, 66080089, 62481195, 57466698, 04308884 #### [facility] [address] [place] [address] 34976 RBC (Bld) [#/Vol] 5.0 E12/L Normal 4.3-5.9 [facility] Comment on above: Performed By: #### 2 206980, 8901557, 9061139, 34819059, 45510128, 08476865, 17842983 #### [facility] [address] [place] [address] 35788 WBC corrected for nucl RBC Auto (Bld) [#/Vol] 13.9 E9/L High 4.0-11.0 [facility] Comment on above: Performed By: #### 2 271743, 6792499, 3839474, 41087096, 73712911, 51637504, 54377884 #### [facility] [address] [place] [address] Head or Brain w/o Contras ton [...] M.D. Transcribed by: BRIAN Technologist: RENNY Normal [facility] Consent for Treatmenton Consent for Treatment [id number]:127 Normal [facility] Discharge Instructionson Discharge Instructions [id number]:127 Normal [facility] ED Clinical Summaryon 2021 ED Clinical Summary [address] [address] ED Clinical Summary Person Information Name: LUI SAM [facility]y/[facility] Age: 46 Years : 1975 Sex: Female Language: St Helen[place] PCP: Betty Velazquez MD Marital Status: MRN: [...] 02/17/2022 15:24:35 02/17/2022 15:24:35 02/17/2022 15:24:35 ADDRESS: [address] [place] [id number] PHYS DOC NOTES: MEDICAL INFORMATION: Prescriptions Given: [...] Follow up: With: Address: When: Armani Hogue [address] [place] [address] [facility] () In 3 days 02/20/2022 Comments: Follow-up with a neurologist Dr. Hogue in 2 to 4 days. Return at once if any problems. Take the medications as prescribed. Please be sure to purchase some eye lubricating drops ibse-wpj-rdyxwor and use every hour while awake. With: Address: When: Betty Velazquez [address] [place] [address] Business (1) In 3 days DIAGNOSIS: 1:Oliveira's palsy Normal [facility] ED Note-Physicianon 02-18-20 ED Note-Physician Basic Information [...] are intact. There is no finger-nose dysmetria. Rack Pusher strength is equal and symmetric bilaterally. Psychiatric: [...] instruct her to use Lacri-Lube or another slwe-mwi-gokygdi lubricating drop for the eye every hour [...] Beta hCG Qual CBC w/ Auto Diff [place] Stroke Scale Communication Order Physician to Nursing [...] Hogue In 3 days 02/20/2022 EDT [address] [place] [address]- Business (1) Additional Instructions: Follow-up with a neurologist Dr. Hogue in 2 to 4 days. Return at once if any problems. Take the medications as (more content not included)... Normal [facility] Comment on above: Result Comment: Elec tronically [...] or diseases and conditions of the eye (manufacturing supervisor). You may have tests, such as: ? [...] Follow these instructions at home: ? Take gaco-xcz-ghiqeop and prescription medicines only as told by [...] 11/03/2006 Document Revised: 10/16/2018 Document Reviewed: 01/06/2018 [employer] Patient Education ? 2019 [employer]. Normal [facility] ED Patient Summaryon 022 ED Patient Summary [place] [id number] Patient Discharge Instructions Person Information Name: LUI SAM Age: 46 Years Arrival Date: 02/17/2022 12:36:03 Discharge Diagnosis: 1:Oliveira's palsy Primary Care Physician: Betty Velazquez MD Provider Information Primary Provider: Nicholas Aguilar DO Advanced Educational Specialist:None The exam and treatment you received in the Emergency Department were for an urgent problem and are not intended as complete care. It is important that you follow up with a doctor, nurse practitioner, or physician?s assistant customer service manager for ongoing care. If your symptoms become [...] Instructions: With: Address: When: Armani Hogue [address] [place] [address] [place] (1) In 3 days 02/20/2022 Comments: Follow-up with a neurologist Dr. Hogue in 2 to 4 days. Return at once if any problems. Take the medications as prescribed. Please be sure to purchase some eye lubricating drops ptse-kjg-enepvxs and use every hour while awake. With: Address: When: Betty Velazquez [address] [place] [address] [place] (1) In 3 days In the event that this physician does not participate in your insurance network, please consult with your insurance company to find a nearby participating provider. Patient Education Materials: Oliveira Palsy, Adult A MESSAGE TO ALL PATIENTS REGARDING OPIOIDS PRESCRIPTION OPIOIDS: WHAT YOU NEED TO KNOW Prescription opioids can be used to help relieve becwlpfw-xb-alkaag pain and are often prescribed following a [...] and Drug (more content not included)... Normal [facility] PT & PTTon 02-17-2022 aPTT Coag (PPP) [Time] 32.9 second(s) Normal 25.1-36.5 [facility] Comment on above: Result Comment: Hepa rin therapeutic range (represented by Anti-Factor Xa activity of 0.2 - 0.4 U/mL) corresponds to PTT of 56.6 - 109.0 sec. Performed By: #### 2 159974, 3940704, 8690825, 00498069, 10159523, 27277691, 23422443 #### [facility] [address] [place] [address] 50450 INR Coag (PPP) [Relative time] 1.0 {INR} Invalid Interpretation Code [facility] Comment on above: Result Comment: INR results are specifically intended to assess patients stabilized on long-term Anticoagulation therapy suggested INR?s ?Less Intensive Anticoagulation? 2.0 ? 3.0 Conventional Range 3.0 ? 4.5 Performed By: #### 2 [id number], 1005173, 2403721, 86862182, 74536165, 23572238, [id number] #### [facility] [address] [place] [address] PT Coag (PPP) [Time] 12.1 second(s) Normal 10.2-12.9 [facility] Comment on above: Performed By: #### 2 107958, 1719625, 5319261, [id number], 83373502, [id number], [id number] #### [facility] [address] [place] [address] Troponin 0 Hr.on 02-17-2022 Troponin I.cardiac [Mass/Vol] 3.10 pg/mL Low 10.10-27.10 [facility] Comment on above: Result Comment: The 95% CI (Confidence Interval) PPV (Positive Predictive Value) for myocardial infarction in females is 38 pg/mL, in males 51 pg/mL. The results should be used in conjunction with clinical conditions of myocardial infarction. (Access High Sensitivity Troponin I Instructions For Use, Unique William, June 2018) Performed By: #### 2 [id number], 9093188, 9907157, 94856152, 61070234, [id number], [id number] #### [facility] [address] [place] [address] XR Chest Single Viewon 02-17 XR Chest Single View Exam Date/Time: 02/17/2022 14:12 EDT Reason for Exam: Chest pain Report IMPRESSION: NO EVIDENCE OF ACTIVE CHEST DISEASE. CLINICAL HISTORY: Chest pain. COMMENT: AP portable. The heart is normal in size. The mediastinum is unremarkable. The lungs appear clear. No infiltration nor pleural effusion is evident. FINAL REPORT Dictated: 02/17/2022 2:26 pm Javire Sanon M.D. Signed (Electronic Signature): 02/17/2022 2:26 pm Signed by: Javier Sanon M.D. Transcribed by: DP Technologist: LEONIDES Uriarte [facility] eGFRon 02-17-2022 GFR/1.73 sq M.predicted among blacks MDRD (S/P/Bld) [Vol rate/Area] mL/min/{1.73_m2} Normal >=59 [facility] Comment on above: Order Comment: Order added by Discern Expert. Result Comment: eGFR is race adjusted. AA=. Performed By: #### 2 [id number], 4558551, 7292259, 82212298, 92094570, [id number], [id number] #### [facility] [address] [place] [address] GFR/1.73 sq M.predicted among non-blacks MDRD (S/P/Bld) [Vol rate/Area] mL/min/{1.73_m2} Normal >=59 [facility] Comment on above: Order Comment: Order added by Discern Expert. Result Comment: Pneumatic Jack Operator deborah kidney disease could be indicated at eGFR's of less than 60 mL/min/1.73m2. Kidney failure is indicated at less than 15 mL/min/1.73m2. Performed By: #### 2 122664, 7164622, 0421281, 67540240, 87207233, 91506553, [id number] #### [facility] [address] [place] [address] POINT OF CARE GLUCOSEon - Glucose [Mass/Vol] 115 mg/dL Critically high 74-106 [facility] Comment on above: Performed By: #### P OCGLUC #### [facility] [address], [place] [address] Dr. Francine GAMEZ Quick Testingon 2020 Result Negative [employer] Other Quick Strepon 10-14-2021 S. pyogenes Org specific cx Ql (Throat) Positive [employer] Other Quick Strep [employer] Other Coding Summaryon 06-08-2020 Coding Summary CODING DATE: 06/08/2020 [facility] STATUS: Home PAYOR: [employer] ADMIT [...] Nogue[place] Date Saved: 06/08/2020 03:12 pm Normal [facility] - Immunology/Serology Results [id number] 98#1.00OTGTIFF [facility] Provider [place] 05-29-2020 Provider Orders [id number] 72#1.00OTGTIFF [facility] Provider [place] 05-26-2020 Provider Orders [id number] 1A#1.00OTGTIFF [facility] SARS-CoV-2 (COVID-19) PCRon 05-26-2020 COVID-19 PCR Not Detected Normal Not Detected [facility] Comment on above: Result Comment: Perf ormed at [facility] [address] [place], [place] [phone] Performed By: #### [id number] #### [facility] (DEFAULT) [address] [place] [address] Vital Signs Date Time Vital Sign Value Performing Clinician Facility 10-14-2021 11:15-0500 Body height 165.1 cm Leonora De Leon Other [facility] Other 10-14-2021 11:15-0500 Body mass index (BMI) [Ratio] 43.26 kg/m2 Leonora De Leon Other [facility] Other 10-14-2021 11:15-0500 Body temperature 100 [degF] Leonora De Leon Other [facility] Other 10-14-2021 11:15-0500 Body weight 117.94 kg Leonora Polancomond Other [facility] Other 10-14-2021 11:15-0500 Respiratory rate 18 /min Leonora Polancomond Other [facility] Other 10-14-2021 11:15-0500 SaO2% (BldA) [Mass fraction] 98 % Leonora Polancomond Other [facility] Other Encounters Encounter Date Encounter Type Care Provider Facility Start: 07-26-2022 End: 07-26-[address] DOCTOR DANIELS Facility:[facility] Start: 01-25-2022 End: 01-25-[address] DOCTOR DANIELS Facility:[facility] Start: 12-19-2021 End: 12-19-2021 ambulatory LIV ALANIZ Facility:[facility] Start: 10-14-2021 (URG) Urgent Care Visit Leonora Haley [employer] [facility] [place] Start: 10-14-2021 End: 10-14-2021 ambulatory Leonora De Leon Other [facility] Other Payers Date Payer Category Payer Unknown [id number] 1975 Unknown [id number] 1975 Unknown [id number] 1959 Self-pay [id number] Unknown [id number] Social History Date Type Detail Facility Unknown if ever smoked [facility] Other Sex Assigned At Sex Assigned At Bir th [facility] Other Evaluation note 10-14-2021 Note Date & [...] Patient care instructions given in writting by [facility] Care At Home document. [facility] Other History general Narrative - Reported Note Date & Type Note Facility History general Narrative - Reported Type Surgical History cervical biopsy Surgical History kidney stone Hospitalization History See Above [facility] Other Summary Purpose Family History No Family History Records FoundNo Family History Records FoundNo Family History Records Found Advance Directives No Advanced Directives Records FoundNo Advanced Directives Records FoundNo Advanced Directives Records Found Additional Source Comments INFORMATION SOURCE (unrecogn ized section and content) DATE CREATED AUTHOR 06/09/2020 [facility] DATE CREATED AUTHOR AUTHOR'S ORGANIZ ATION 02/19/2022 [facility] DATE CREATED AUTHOR AUTHOR'S ORGANIZ ATION 07/29/2022 [facility] REASON FOR VISIT (unrecogniz ed [...] BE BASED ON THE PRIMARY CLINICAL RECORDS. [facility] [employer] [facility]. provides no warranty or guarantee of the accuracy or completeness of information in this document.
[2024-03-16] MEDS: LACTATED RINGER'S SOLUTION 1,000 ML 100 ML IV (14:45)
--- NOTE | 2024-03-16 14:59 | CM.NOTE ---
Discussed insurance with pt, pt at this time is a self-pay. Her is switching insurances. Pt states she filled out HCAP paperwork in ER.
[2024-03-16] MEDS: INSULIN ASPART 300 UNIT/3 ML PEN SUBQ ×2 (16:44→22:40)
[2024-03-16 16:53] LABS: Glucometer 196 mg/dL (74-106)
[2024-03-16 20:18] LABS: Glucometer 205 mg/dL (74-106)
[2024-03-17] VITALS: BP 166/85; PULSE 96; TEMP 36.8; O2SAT 96
[2024-03-17] MEDS: AMPICILLIN SODIUM/SULBACTAM NA 3 GM in 0.9 % SODIUM CHLORIDE 100 ML IV ×2 (02:24→07:38)
[2024-03-17] MEDS: LACTATED RINGER'S SOLUTION 1,000 ML 100 ML IV (02:24)
[2024-03-17 04:00] VITALS: BP 140/83; PULSE 84; TEMP 36.9; O2SAT 97
[2024-03-17 04:42] VITALS: TEMP 36.9
[2024-03-17] MEDS: KETOROLAC TROMETHAMINE 30 MG/ML VIAL IVP (04:42)
[2024-03-17 04:56] LABS: Basophils Percent Auto 0.2 % (0.2-2.0); Hematocrit 40.4 % (36.0-48.0); Hemoglobin 12.4 g/dL (12.0-16.0); Immature Granulocytes Abs Auto 0.27 10^3/uL (0.00-0.03); Immature Granulocytes Pct Auto 1.2 % (0.0-0.5); Lymphocytes Absolute Auto 1.6 10^3/uL (1.2-3.8); Lymphocytes Percent Auto 7.4 % (20.5-60.0); Mean Corpuscular HGB Conc 30.7 g/dL (29.9-35.2); Mean Platelet Volume 11.1 fL (9.5-13.5); Monocytes Percent Auto 4.5 % (1.7-12.0); Neutrophils Absolute Auto 19.1 10^3/uL (1.4-6.5); Neutrophils Percent Auto 86.7 % (43.0-75.0); Platelet Count 240 10^3/uL (150-450); Red Blood Count 4.59 10^6/uL (4.20-5.40); Red Cell Distribution Width 13.8 % (11.0-15.0)
[2024-03-17 05:05] LABS: Anion Gap 13.5; BUN Creatinine Ratio 14.3; Calcium 8.7 mg/dL (8.5-10.1); Carbon Dioxide 23.8 mmol/L (21.0-32.0); Chloride 107 mmol/L (98-107); Estimated GFR (African America >60 (>=60); Estimated GFR (Non-African Ame >60 (>=60); Glucose 166 mg/dL (74-106); Potassium 4.3 mmol/L (3.5-5.1); Sodium 140 mmol/L (136-145)
--- NOTE | 2024-03-17 07:36 | P.DS_ITS ---
DS: Providers Provider Date of admission: 03/16/24 10:05 Primary care physician: Non-Staff Physician Consults: 03/16/24 09:59 Consult to Pharmacy Routine Consulting Provider: Reason for consultation: Please [place] me when Med Rec is Updated Has provider been notified: No 03/16/24 10:06 Consult to Search Engine Optimization Analyst Routine Reason for consult:: Financial Concerns Other reason:: application for medicaid? DS: Diagnosis Discharge Diagnosis (1) Airway stricture: Assessment and plan: Fever, uncontrolled hypertension, leukocytosis, hyperglycemia, lactic acidosis secondary to severe pharyngitis with severe airway narrowing noted on CT scan, all resulted in severe sepsis. Blood cultures have been obtained, fluid boluses have been given, IV antibiotics have been started, repeat lactate is still pending, with severe narrowing patient will be admitted to the intensive care unit for close observation. Improving at the time of discharge Hyperglycemia-improving at the time of discharge Uncontrolled hypertension-improving at the time of discharge Hyponatremia likely secondary to dehydration-resolved Venous stasis dermatitis-will address as an outpatient Admission status: Placed patient in the intensive care unit as observation status, with the severity of her symptoms she may need to be watched overnight, chance she could be discharged home later today if feels much improved. No abscess noted on CT scan but concerning for possible progression. ? (2) Sepsis: Qualifiers: Sepsis acute organ dysfunction status: without acute organ dysfunction Sepsis type: sepsis due to unspecified organism Qualified Code(s): A41.9 - Sepsis, unspecified organism DS: Summary Hospital Course Hospital Course: Patient was seen and evaluated in the emergency room with a rapid onset of severe pharyngitis, difficulty swallowing. She was able to swallow, CT scan of the neck though showed severe narrowing. She did not have an abscess formation. She was given Decadron and IV antibiotics in the emergency room with some improvement. He was maintained on IV antibiotics, Toradol. Benadryl as well. Patient improved overnight. She can swallow much easier now. Risk for abscess would be low at this point. Patient stable for discharge to home in improved condition. Medications see this. Follow-up with her PCP within the next week. Status at Discharge Overall status at discharge: patient is back to baseline Time Spent with Patient Time attestation: Total time spent providing and/or coordinating discharge services: Time spent: greater than 30 minutes Exam Constitutional Vital Signs, click to edit/add: Last Vital Signs Temp 98.5 F 03/17/24 04:42 Pulse 84 03/17/24 04:00 Resp 17 03/17/24 04:00 BP 140/83 03/17/24 04:00 Pulse Ox 97 03/17/24 04:00 O2 Del Method Room Air 03/17/24 04:00 Documenting provider has reviewed patient's vital signs: yes Common normals: apparent distress (Painful distress secondary to swallowing) HENMT Other: Oropharynx with erythema but no abscess obvious, swelling improved Respiratory Common normals: normal respiratory effort ( Hot potato breath ), no retractions and clear to auscultation bilaterally Effort & inspection: able to speak in complete sentences; no stridor Cardio Common normals: regular rate and regular rhythm GI Common normals: Normal to inspection, nondistended, normoactive bowel sounds present Extremity Common normals: abnormal to inspection (Chronic venous stasis dermatitis) Neuro Common normals: oriented x3 and CN's II-XII intact bilaterally Sensorium/orientation: awake, alert, oriented to person, oriented to place and oriented to time; orientation not impaired DS: Data Data Completed and Pending Labs on day of discharge: Labs from last 24 hours 03/17/24 03/16/24 03/16/24 04:40 20:17 16:43 WBC 22.0 H RBC 4.59 Hgb 12.4 Hct 40.4 MCV 88.0 MCH 27.0 MCHC 30.7 RDW 13.8 Plt Count 240 MPV 11.1 Neut % (Auto) 86.7 H Lymph % (Auto) 7.4 L [place] % (Auto) 4.5 Eos % (Auto) 0.0 L Baso % (Auto) 0.2 Neut # (Auto) 19.1 H Lymph # (Auto) 1.6 [place] # (Auto) 1.0 H Eos # (Auto) 0.0 Baso # (Auto) 0.0 Abs Immat Gran (auto) 0.27 H Imm/Tot Granulo (auto) 1.2 H Sodium 140 Potassium 4.3 Chloride 107 Carbon Dioxide 23.8 Anion Gap 13.5 BUN 9.0 Creatinine 0.63 Est GFR ( Amer) >60 Est GFR (Non-Af Amer) >60 BUN/Creatinine Ratio 14.3 Glucose 166 H Lactate Calcium 8.7 Total Bilirubin AST ALT Alkaline Phosphatase Total Protein Albumin Globulin Albumin/Globulin Ratio Serum HCG, Qual POC Glucose 205 H 196 H 03/16/24 03/16/24 03/16/24 11:21 11:03 08:14 WBC RBC Hgb Hct MCV MCH MCHC RDW Plt Count MPV Neut % (Auto) Lymph % (Auto) [place] % (Auto) Eos % (Auto) Baso % (Auto) Neut # (Auto) Lymph # (Auto) [place] # (Auto) Eos # (Auto) Baso # (Auto) Abs Immat Gran (auto) Imm/Tot Granulo (auto) Sodium Potassium Chloride Carbon Dioxide Anion Gap BUN Creatinine Est GFR ( Amer) Est GFR (Non-Af Amer) BUN/Creatinine Ratio Glucose Lactate 1.0 3.2 H* Calcium Total Bilirubin AST ALT Alkaline Phosphatase Total Protein Albumin Globulin Albumin/Globulin Ratio Serum HCG, Qual POC Glucose 158 H 03/16/24 07:22 WBC RBC Hgb Hct MCV MCH MCHC RDW Plt Count MPV Neut % (Auto) Lymph % (Auto) [place] % (Auto) Eos % (Auto) Baso % (Auto) Neut # (Auto) Lymph # (Auto) [place] # (Auto) Eos # (Auto) Baso # (Auto) Abs Immat Gran (auto) Imm/Tot Granulo (auto) Sodium 133 L Potassium 4.0 Chloride 96 L Carbon Dioxide 25.0 Anion Gap 16.0 BUN 6.0 L Creatinine 0.98 Est GFR ( Amer) >60 Est GFR (Non-Af Amer) >60 BUN/Creatinine Ratio 6.1 Glucose 199 H Lactate Calcium 8.9 Total Bilirubin 0.7 AST 18 ALT 33 Alkaline Phosphatase 86 Total Protein 8.0 Albumin 3.2 L Globulin 4.8 Albumin/Globulin Ratio 0.7 Serum HCG, Qual Negative POC Glucose Discharge Plan Discharge Disposition: Home, Self-Care Discharge Medications: New amoxicillin-pot clavulanate 875-125 mg tablet 1 tab PO BID Qty: 20 0RF prednisone 20 mg tablet 20 mg PO BID 5 Days Qty: 10 0RF Activity: resume usual activities as tolerated Diet: regular diet Print Language: Amharic Patient Instructions: Amoxicillin (By mouth) (Amoxicot, Amoxil, Amoxil Pediatric, Trimox), Prednisolone (By mouth), Tonsillitis (GEN) Forms: Portal Instructions Follow Up Appointments: Sheet given to patient for available offices accepting new patients when her insurance starts Discharge Date/Time: 03/17/24 08:35
[2024-03-17] MEDS: INSULIN ASPART 300 UNIT/3 ML PEN SUBQ (07:41)
[2024-03-17] MEDS: DEXAMETHASONE SOD PHOS 10 MG/ML VIAL IV (07:44)
--- NOTE | 2024-03-17 08:06 | CM.NOTE ---
Rounds made with Dr. Shabazz. Plan for discharge today. No needs. Ms. Wei in agreement with plan.
[2024-03-17 08:21] VITALS: BP 136/82; PULSE 76; TEMP 36.6; O2SAT 97
--- NOTE | 2024-03-17 11:38 | SWNOTE1 ---
SW was consulted due to financial concerns, possible need for medicaid application. Case management did see pt yesterday and our financial counselors did see pt yesterday and pt was provided with HCAP. Forms were given to pt to fill out.
--- NOTE | 2024-03-19 15:39 | CM.DCFOLLOWU ---
Person spoke with: patient How are you feeling? not the greatest How is your pain? steroids are affecting her mood Did you understand your discharge instructions? yes Do you have any questions about your discharge instructions? no Were you given any prescriptions at discharge? yes Were you able to get your prescriptions filled? yes Do you understand how to take your medications as ordered? yes Do you have any questions about your follow up appointment and do you plan to keep your follow up appointment? no questions, they just received paperwork from her 's job and they are going to fill it out to get under his insurance Is there anything else that you would like to discuss? no Questions/Comments/Concerns/Other: N/A
== END 2024-03-17 08:35 | disposition home or self-care (01) ==
LOC: ER 10:05 → ICU 11:05
PROVIDERS: Admitting Provider Family Medicine; Emergency Provider Emergency Medicine; Visit Provider Family Medicine
DX: A41.9 Sepsis, unspecified organism (principal); R65.20 Severe sepsis without septic shock; J02.9 Acute pharyngitis, unspecified; R73.9 Hyperglycemia, unspecified; I10 Essential (primary) hypertension; E87.20 Acidosis, unspecified; E87.1 Hypo-osmolality and hyponatremia; I87.2 Venous insufficiency (chronic) (peripheral); Z87.891 Personal history of nicotine dependence
CPT/HCPCS: 36415; 70491; 80048; 80053; 82948; 83605; 84703; 85025; 87040; 87070; 87880; 94761; 96365; 96366; 96375; 96376; 99285; G0378; J1100; Q9967

== ENCOUNTER 2024-12-04 22:05 | Emergency (ER) | payer BC, SELFPAY ==
--- OUTSIDE RECORDS SUMMARY | 2024-12-04 22:10 | XMS_ITS | CCD ---
Author Organization [facility] CliniSyvt Care Team Providers Care Industrial Hygenist Name Role Phone Leonora De Leon Unavailable LIV ALANIZ Admitting Unavailable LIV ALANIZ Attending Unavailable MISC, DR NORMAN Primary Care Unavailable NEMESIO GUTIERREZ Consulting Unavailable MISC, DR NORMAN Primary Care Unavailable ANA, DR SCHRADER Admitting Unavailable ANA, DR SCHRADER Attending Unavailable ANA, DR SCHRADER Consulting Unavailable MISC, DR NORMAN Primary Care Unavailable LIV ALANIZ Admitting Unavailable LIV ALANIZ Attending Unavailable TOM, DR BEATRICE Lee Consulting Unavailable LIV ALANIZ Consulting Unavailable Onofre Pierre Attending Unavailable Unavailable Primary Care Provider UnavailArturo Raman Attending Unavailable Arturo Cunningham Admitting Unavailable [place], Beatrice Consulting Unavailable [place], Beatrice Consulting Unavailable [place], Beatrice Consulting Unavailable [place], Beatrice Consulting Unavailable [place], Beatrice Consulting Unavailable [place], Beatrice Consulting Unavailable [place], Beatrice Consulting Unavailable [place], Beatrice Consulting Unavailable [place], Beatrice Consulting Unavailable NONE, XXXX Primary Care Physician Unavailab MD Beatrice Childs Consulting Unavailable JESSICA DIANE Primary Care Physician Unallocated , Noms Provider Primary Care Provi megan Jessica Diane Unavailable Husam Guzman DO Unavailable HUSAM GUZMAN Attending Unavailable JESSICA DIANE Referring Unavailable HUSAM GUZMAN Attending Unavailable HUSAM GUZMAN Attending Unavailable KEITH DIANEY A Attending Unavailable KEITH DIANEY A Attending Unavailable JESSICA DIANE A Attending Unavailable JESSICA DIANE Attending Unavailable JESSICA DIANE Attending Unavailable JESSICA DIANE Attending Unavailable JESSICA DIANE Attending Unavailable JESSICA DIANE Admitting Unavailable JESSICA DIANE Attending Unavailable JESSICA DIANE Referring Unavailable JESSICA DIANE Attending Unavailable JESSICA DIANE Admitting Unavailable Arturo Cunningham Admitting Unavailable Arturo Cunningham Attending Unavailable Beatrice [place]ogue Consulting Unavailable EJSSICA DIANE Admitting Unavailable Allergies Allergy Classification Reported Allergen(s) Allergy Type Date of Onset Reaction(s) Facility (5 sources) No Known Medication Allergies; Translations: [No Known Medication Allergies] Propensity to adverse reactions (disorder) [facility] Repository (7 sources) HYDROcodone; Translations: [HYDROcodone] Drug Allergy Vomiting (disorder) [facility] Repository (8 sources) Penicillins; Translations: [penicillins] Propensity to adverse reactions (disorder) Unknown (qualifier value) [facility] Rep[facility] Medications Current Medications Medication Drug Class(es) Dates Sig (Normalized) Sig (Original) acetaminophen 325 mg oral tablet (3 sources) Start: 09-13-2024 take 1 tablet by mouth every four hours as needed for pain acetaminophen 325 mg Tab 325 mg = 1 tab(s), Oral, q4hr, PRN for pain, # 60 tab(s), Refills(s) 0 Start Date: 09/13/24 Status: Ordered atorvastatin 40 mg oral tablet (11 sources) HMG-CoA Reductase Inhibitor Start: 12-01-2024 take 1 tablet by mouth at bedtime atorvastatin 40 mg Tab 40 mg = 1 tab(s), Oral, Bedtime, # 60 tab(s), Refills(s) 0, Pharmacy: [id number], 165, cm, 09/15/24 13:00:00 EDT, Height/Length Dosing, 125.2, kg, 09/15/24 13:00:00 EDT, Weight Dosing Start Date: 12/01/24 Status: Ordered Start: 09-14-2024 take 1 tablet by brittany th at bedtime atorvastatin 40 mg Tab 40 mg = 1 tab(s), Oral, Bedtime, # 60 tab(s), Refills(s) 0, other reason (Rx), 165, cm, 09/15/24 13:00:00 EDT, Height/Length Dosing, 125.2, kg, 09/15/24 13:00:00 EDT, Weight Dosing Start Date: 09/15/24 Status: Ordered losartan potassium 50 mg oral tablet (11 sources) Angiotensin 2 Receptor Imer Start: 12-01-2024 take 1 tablet by mouth once daily losartan 50 mg Tab 50 mg = 1 tab(s), Oral, Daily, # 60 tab(s), Refills(s) 0, Pharmacy: [facility], 165, cm, 09/15/24 13:00:00 EDT, Height/Length Dosing, 125.2, kg, 09/15/24 13:00:00 EDT, Weight Dosing Start Date: 12/01/24 Status: Ordered Start: 09-14-2024 take 1 tablet by brittany th once daily losartan 50 mg Tab 50 mg = 1 tab(s), Oral, Daily, # 60 tab(s), Refills(s) 0, other reason (Rx), 165, cm, 09/15/24 13:00:00 EDT, Height/Length Dosing, 125.2, kg, 09/15/24 13:00:00 EDT, Weight Dosing Start Date: 09/15/24 Status: Ordered Penicillin (1 source) Start: 10-14-2021 take 1 tablet by brittany th three times daily Penicillin VK 500mg 500mg [...] 30 mg oral tablet (1 source) Uncompetitive M-hohozd-D-aspartate Receptor Antagonist, Sigma-1 Agonist Start: 01-31-2020 [place] DMT 30-30 MG 1 tablet Orally every 6-8 hours for 7 days Jan, Not-Taking fluticasone propionate 0.05 mg/actuat metered dose nasal spray (1 source) Corticosteroid Start: 01-31-2020 take 1 spray(s) nasal route once daily Fluticasone Propionate 50 MCG/ACT 1 spray in each nostril Nasally Once a day for 30 day(s) Jan, Not-Taking Problems Active Problems Problem Classification Problem Date Documented Date Episodic/Chronic Acute bronchitis (1 source) Acute bronchitis, unspecified; Translations: [ACUTE BRONCHITIS UNSPECIFIED] Onset: 07-29-2022 Episodic Blindness and vision defects (4 sources) Eye / vision finding; Translations: [Unspecified visual disturbance] 09-22-2024 Episodic Disorders of lipid metabolism (2 sources) Hyperlipidemia; Translations: [Hyperlipidemia, unspecified] 09-22-2024 Chronic Essential hypertension (4 sources) Essential hypertension; Translations: [Essential (primary) hypertension] Onset: 09-13-2024 Chronic Headache; including migraine (6 sources) Migraine, unspecified, not intractable, without status migrainosus; Translations: [Migraine] Onset: 01-28-2022 Chronic Headache; including migraine (1 source) Headache; Translations: [Headache, unspecified] Onset: 09-13-2024 Episodic Headache; including migraine (3 sources) Headache; including migraine; Translations: [HEADACHE UNSPECIFIED] Onset: 01-25-2022 Hypertension with complications and secondary hypertension (4 sources) Hypertensive urgency ; Translations: [Hypertensive urgency] 09-22-2024 Chronic Other lower respiratory disease (3 sources) Snoring; Translations: [Snoring] 09-22-2024 Episodic Other lower respiratory disease (2 sources) Hypoxia; Translations: [Hypoxemia] 11-29-2024 Episodic Other nervous system disorders (2 sources) Meralgia paresthetica of left leg; Translations: [Meralgia paresthetica, left lower limb] 11-29-2024 Chronic Other nervous system disorders (5 sources) Numbness and tingling sensation of skin; Translations: [Anesthesia of skin] 09-22-2024 Episodic Other nutritional; endocrine; and metabolic disorders (1 source) Morbid obesity; Translations: [Morbid (severe) obesity due to excess calories] Onset: 09-13-2024 Chronic Other nutritional; endocrine; and metabolic disorders (2 sources) Severe obesity; Translations: [Class 3 severe obesity due to excess calories with body mass index (BMI) of 45.0 to 49.9 in adult, unspecified whether serious comorbidity present (CMS/FORMERLY [facility])] 09-22-2024 Chronic Residual codes; unclassified (3 sources) Hypersomnia; Translations: [Hypersomnia, unspecified] 09-22-2024 Chronic Residual codes; unclassified (5 sources) Obstructive sleep apnea syndrome; Translations: [Obstructive sleep apnea (adult) (pediatric)] 11-11-2024 Chronic Substance-related disorders (5 sources) Nicotine dependence, cigarettes, uncomplicated; Translations: [Nicotine dependence] Onset: 07-29-2022 Chronic Comment on above: Added secondary to d ocumentation in Social History. Unclassified (2 sources) COUGH, UNSPECIFIED; Translations: [COUGH, [...] Test Name Value Interpretation Reference Range Facility Ambulatory Visit Summaryon 0 12-03-2024 Ambulatory Visit Summary Ambulatory Visit Summary DIANE SAM :1975 Visit Date:12/03/2024 Ambulatory Visit Instructions Your Diagnosis HTN (hypertension) Fatigue Vapes nicotine containing substance BMI 45.0-49.9, adult, Body mass index [BMI] 45.0-49.9, adult Morbid obesity with BMI of 45.0-49.9, adult Your Care Team Attending Physician - JESSICA DIANE CNP Primary Care Physician - JESSICA DIANE CNP This Is Your Medications List acetaminophen (acetaminophen 325 mg Tab) atorvastatin (atorvastatin 40 mg Tab) losartan (losartan 50 mg Tab) Procedures Performed Tubal ligation done (12/25/1996). Discharge Vitals Temperature (Oral) 36.4 ???C Heart Rate (Peripheral) 76 Respiratory Rate 20 Blood Pressure 170/90 Height 165.0 cm Height 65 in Weight 128.8 kg Weight 283.955 lb BMI 47.31 What to do next Scheduled Follow-Up Appointments Friday 9:00 AM EST With: JESSICA DIANE CNP Where: [facility] [address] [address]- You Need to Schedule the Following Appointments Follow Up with JESSICA DIANE CNP [facility] When: Within 1 week Comments: HTN & Weight management Where: [address] [place] [phone] Business (1) Medications What How Much When Instructions Unchanged acetaminophen (acetaminophen 325 mg Tab) 1 Tablets By Mouth Every 4 hours as needed for for pain Unchanged atorvastatin (atorvastatin 40 mg Tab) 1 Tablets By Mouth At bedtime Unchanged losartan (losartan 50 mg Tab) 1 Tablets By Mouth Every day Allergies penicillins (Unknown) HYDROcodone (Vomiting) Problems Ongoing - Any problem that you are currently receiving treatment for. HTN (hypertension) Smoker Patient Survey You may receive a survey via text or e-mail asking about your office visit. Please share your experience with us by completing your survey. We appreciate your feedback and thank you for choosing us for your care. Normal [facility] Ambulatory Visit Summary Ambulatory Visit Summary DIANE SAM :1975 Visit Date:12/03/2024 Ambulatory Visit Instructions Your Diagnosis HTN (hypertension) Fatigue Vapes nicotine containing substance BMI 45.0-49.9, adult, Body mass index [BMI] 45.0-49.9, adult Morbid obesity with BMI of 45.0-49.9, adult Your Care Team Attending Physician - JESSICA DIANE CNP Primary Care Physician - JESSICA DIANE CNP This Is Your Medications List acetaminophen (acetaminophen 325 mg Tab) atorvastatin (atorvastatin 40 mg Tab) losartan (losartan 50 mg Tab) Procedures Performed Tubal ligation done (12/25/1996). Discharge Vitals Temperature (Oral) 36.4 ???C Heart Rate (Peripheral) 76 Respiratory Rate 20 Blood Pressure 170/90 Height 165.0 cm Height 65 in Weight 128.8 kg Weight 283.955 lb BMI 47.31 What to do next Scheduled Follow-Up Appointments Friday 9:00 AM EST With: JESSICA DIANE CNP Where: [address] [phone]- You Need to Schedule the Following Appointments Follow Up with JESSICA DIANE CNP, FAM When: Within 1 week Comments: HTN & Weight management Where: [address] [place] [phone] Business (1) Medications What How Much When Instructions Unchanged acetaminophen (acetaminophen 325 mg Tab) 1 Tablets By Mouth Every 4 hours as needed for for pain Unchanged atorvastatin (atorvastatin 40 mg Tab) 1 Tablets By Mouth At bedtime Unchanged losartan (losartan 50 mg Tab) 1 Tablets By Mouth Every day Allergies penicillins (Unknown) HYDROcodone (Vomiting) Problems Ongoing - Any problem that you are currently receiving treatment for. HTN (hypertension) Smoker Patient Survey You may receive a survey via text or e-mail asking about your office visit. Please share your experience with us by completing your survey. We appreciate your feedback and thank you for choosing us for your care. Normal [facility] CHEMISTRYOrdered By: SYSTEM SYSTEM on 12-03-2024 TSH Qn 1.26 m[IU]/L Normal 0.34 - 5.60 mcIU/mL Remisol Chem Family Medicine Office/Clini c Noteon 12-03-2024 Family Medicine Office/Clinic Note Family Medicine Office/Clinic Note HPI Staff Diane is a 49 year old presenting with chronic care f/u Neurology for migraines- OV on 09/22/24 (printed OV from here)- she claims she does not have migraines, she was having headaches from HTN Patient is here for follow up on hypertension. How often are you checking your blood pressure? a few times a week What are your average readings? 113/76 Yearly BMP: September 14 2024 No refills needed History of Present Illness Patient presents today in f/u for HTN. She reports she has not taken her blood pressure medication for 2 days now. Her blood pressure is elevated today in the office at 170/90 and she reports it was 166/104 earlier today with her cuff. She denies dizziness, headache, vision changes, heart palpitations, and chest pain. She reports she does not need refills of the medication as this was done a couple days ago and she has not picked up the mediations. Review of Systems PHQ Score Initial Depression Screen Score: 0 SCORE Constitutional: no fever, no chills, no sweats, no weakness Respiratory: no shortness of breath, no cough, no orthopnea, no wheezing Cardiovascular: no chest pain, no palpitations, no edema Additional ROS info: Except as noted in the above Review of Systems and in the History of Present Illness all other systems have been reviewed and are negative or noncontributory. Physical Exam Vitals & Measurements T: 36.4 ???C(Oral) HR: 76(Peripheral) RR: 20 BP: 170/90 SpO2: 98% HT: 65 in HT: 165.0 cm WT: 128.8 kg WT: 283.955 lb BMI: 47.31 General: alert, no acute distress Cardiovascular: regular rate and rhythm, normal peripheral perfusion Respiratory: Lungs CTA, respirations non labored Extremities: no deformity, no trauma Neurological: oriented x 4, LOC appropriate for age speech normal Assessment/Plan 1. HTN (hypertension) (I10: Essential (primary) hypertension) Uncontrolled Instructed to take the losartan 50 mg one tablet po daily Encourage low sodium diet and daily exercise f/u one week 2. Fatigue (R53.83: Other fatigue) Ordered: Lab Specimen Collect [id number] TSH With T4fr Reflex 3. Vapes nicotine containing substance (Z72.0: Tobacco use) [address] [address] 4. BMI 45.0-49.9, adult, (Z68.42: Body mass index [BMI] 45.0-49.9, adult)Body mass index [BMI] 45.0-49.9, adult The standard range for ages 18 and older is >=18.5 and < 25 kg/m2. Your BMI today was above this range, this falls in the overweight to obese category and there are medical benefits to weight loss. We can offer counselling, referral, and/or medical support in addressing this problem. Your BMI and weight management will be followed at subsequent visits. 5. Morbid obesity with BMI of 45.0-49.9, adult (E66.01: Morbid (severe) obesity due to excess calories) The standard range for ages 18 and older is >=18.5 and < 25 kg/m2. Your BMI today was above this range, this falls in the overweight to obese category and there are medical benefits to weight loss. We can offer counselling, referral, and/or medical support in addressing this problem. Your BMI and weight management will be followed at subsequent visits. Follow-up With When Contact Information JESSICA DIANE CNP, FAM Within [address] [place] [phone] Business (1) Additional Instructions: HTN & Weight management Patient Education Fatigue Problem List/Past Medical History Ongoing HTN (hypertension) Smoker Historical No qualifying data Procedure/Surgical History Tubal ligation done (12/25/1996). Medications acetaminophen 325 mg Tab, 325 mg= 1 tab(s), Oral, q4hr, PRN atorvastatin 40 mg Tab, 40 mg= 1 tab(s), Oral, Bedtime losartan 50 mg Tab, 50 mg= 1 tab(s), Oral, Daily Allergies penicillins (Unknown) HYDROcodone (Vomiting) Social History Alcohol - Denies Alcohol Use, 09/13/2024 Past. Beer. 1-2 times per month., 09/15/2024 Substance Abuse - Low Risk, 09/13/2024 Never., 09/15/2024 Tobacco - High Risk, 09/13/2024 Former smoker, quit more than 30 days ago, quit August 2024 Tobacco Use:. Current vaping or e-cigarette use Smokeless Tobacco Use:., 12/03/2024 [facility] Comment on above: Result Comment: Elec tronically Signed By: JESSICA DIANE CNP\.br\Date and Time Signed: 12/03/24 10:56 EST EMG 2 Extremitieson 11-01-20 24 EMG/NCS BLE Normal study [facility] NVC 9-10 Nerveson 11-01-2024 EMG/NCS BLE Normal study [facility] [employer] [facility] Home sleep teston 10-26-2024 Patient does meet criteria for severe obstructive sleep apnea from CPAP titration AHI is 42 with an oxygen desaturation down to 59.4 % [facility] [employer] [facility] Coding Queryon 10-01-2024 Coding Query Coding Query - From: Eloina Rodriguez To: Arturo Cunningham III, DO; Sent: 09/20/2024 07:45:57 EST ! Subject: Coding Query Documentation in the medical record indicates this patient has been admitted with or diagnosed as having: TIA The following is also documented in the medical record: MRI of brain showed no evidence of acute/recent cerebral infarction. Neurology was not concerned for stroke and attributed her symptoms to migraine. Based on your medical judgement, can you please clarify if the diagnosis is: [___] Ruled out [___] Ruled in [___] Unable to determine In responding to this request, please exercise your independent professional judgement. The fact that a question is asked does not imply that any particular answer is desired or expected. Thank You, Eloina TIA ruled out - From: Arturo Cunningham III, DO To: Eloina Rodriguez; Sent: 10/01/2024 11:45:11 EST Subject: RE: Coding Query Caller Name: DIANE SAM; Caller Number: Angel , [facility] 09-29-20 24 [facility] Case Information Case Priority: None Programs: -- Referral Source: Track Helper Referral Reason: Care coordination Case Type: Transition Care Management Risk Score: -- Case Status: Enrolled (September 16, 2024) Date Assigned: September 15, 2024 Assigned By: [place] Date Enrolled: September 16, 2024 Assigned Primary Personnel: [place] Assigned Secondary Personnel: -- Case Physician: JESSICA DIANE CNP Problems Ongoing Smoker Historical No qualifying data Procedure/Surgical History Tubal ligation done (12/25/1996). Home Medications acetaminophen 325 mg Tab, 325 mg= 1 tab(s), Oral, q4hr, PRN atorvastatin 40 mg Tab, 40 mg= 1 tab(s), Oral, Bedtime losartan 50 mg Tab, 50 mg= 1 tab(s), Oral, Daily Allergies penicillins (Unknown) HYDROcodone (Vomiting) Social History Alcohol - Denies Alcohol Use, 09/13/2024 Past. Beer. 1-2 times per month., 09/15/2024 Substance Abuse - Low Risk, 09/13/2024 Never., 09/15/2024 Tobacco - High Risk, 09/13/2024 quit August 2024 Tobacco Use:. Cigarettes, 09/15/2024 Screenings and Assessments 09/16/24 08:55:00 Result Name Value Comment Phone Call Monitoring Consent Agreed to continue call Phone Verification Patient Information Full name, street address and date of verified CM Program Enrollment Provides verbal consent for enrollment Goals and Interventions Care Plan Progress Note TCM#3- Patient states things are 'going okay.' Notes she still gets SUMMERS's but not as frequently; patient noting she has had SUMMERS and migraines for years. Patient states she feels better being on the BP medicine. Reports last BP 143/86. CN reviewed how to properly monitor BP at home and reviewed BP friendly foods. Patient does admit she needs to drink more water. Patient has OV with PCP, 10/12/24 and will bring BP log. Patient notes neuro f/u went okay. She is waiting for equipment to complete an in home sleep study. Patient seems to be very motivated to make improvements to her health. Notes she wants to tackle one thing at a time. CN reviewed thyroid results (see US results note.) Patient has not had any labs completed and inquiring if orders can be placed message to PCP.) Patient does report having intolerance to heat/ cold and thinning hair. Patient does report chronic lower back and hip pain at night. She uses a heating pad and body pillow to help, states effective. Patient denies any further questions or concerns at this time. Communication Events Date: September 29, 2024 Method: Phone call Type: Outbound Duration (min): 18 Outcome: Case discussion Contact Type: Patient Contact Name: DIANE SAM Notes: TCM#3- see tcm note. Created By: [place] Date: September 22, 2024 Method: Phone call Type: Outbound Duration (min): 17 Outcome: Case discussion Contact Type: Patient Contact Name: DIANE SAM Notes: TCM#2- See tcm note. Created By: [place] Date: September 15, 2024 Method: In-person Type: -- Duration (min): -- Outcome: Case discussion Contact Type: Primary care provider Contact Name: -- Notes: TCM#1-OV Created By: [place] [facility] US Thyroidon 09-27-2024 US Thyroid Exam Date/Time: 09/22/2024 09:12 EST Reason for Exam: E04.1;Other (please specify) Report IMPRESSION: SMALL THYROID NODULES. A FOLLOW-UP ULTRASOUND IS SUGGESTED IN ONE YEAR. TR 4, Moderately Suspicious--FNA if greater than or equal to 1.5 cm and follow-up at 1, 3 and 5 years, if greater than or equal to 1 cm. EXAM: US Thyroid DATE: 09/22/2024 8:50 AM CLINICAL HISTORY: E04.1. COMPARISON: Neck CT 09/13/2024. TECHNIQUE: Ultrasound of the thyroid was performed with a regional survey. Guidance on fine-needle aspiration (FNA) and follow-up for nodules using TI-RADS, based on 2017 ACR white paper. FINDINGS: The thyroid is normal in size, with expected vascularity. An approximately 1.0 x 1.0 x 0.7 cm probably solid very hypoechoic wider than tall smoothly marginated nodule without echogenic foci (TR 4) is noted within the superior right lobe. Three similar appearing nodules are present within the left lobe. The largest superiorly measures approximately 1.1 x 1.0 x 0.9 cm The right lobe measures 5.5 cm x 2.0 cm x 1.2 cm with a volume of 7.0 cm3. The left lobe measures 4.1 cm x 1.7 cm x 1.3 cm with a volume of 4.9 cm3. The isthmus measures 0.4 cm. Ordering Provider: JESSICA DIANE FINAL REPORT Dictated: 09/27/2024 12:18 pm Malcolm Brennan MD Signed (Electronic Signature): 09/27/2024 12:18 pm Signed by: Malcolm Brennan MD Transcribed by: BRIAN Technologist: BRITTA Choudhary [facility] 09-22-20 [facility] Case Information Case Priority: None Programs: -- Referral Source: Track Helper Referral Reason: Care coordination Case Type: Transition Care Management Risk Score: -- Case Status: Enrolled (September 16, 2024) Date Assigned: September 15, 2024 Assigned By: [place] Date Enrolled: September 16, 2024 Assigned Primary Personnel: [place] Assigned Secondary Personnel: -- Case Physician: JESSICA DIANE CNP Ongoing Smoker Historical No qualifying data Procedure/Surgical History Tubal ligation done (12/25/1996). Home Medications acetaminophen 325 mg Tab, 325 mg= 1 tab(s), Oral, q4hr, PRN atorvastatin 40 mg Tab, 40 mg= 1 tab(s), Oral, Bedtime losartan 50 mg Tab, 50 mg= 1 tab(s), Oral, Daily Allergies penicillins (Unknown) HYDROcodone (Vomiting) Social History Alcohol - Denies Alcohol Use, 09/13/2024 Past. Beer. 1-2 times per month., 09/15/2024 Substance Abuse - Low Risk, 09/13/2024 Never., 09/15/2024 Tobacco - High Risk, 09/13/2024 quit August 2024 Tobacco Use:. Cigarettes, 09/15/2024 Screenings and Assessments 09/16/24 08:55:00 Result Name Value Comment Phone Call Monitoring Consent Agreed to continue call Phone Verification Patient Information Full name, street address and date of verified CM Program Enrollment Provides verbal consent for enrollment Goals and Interventions Care Plan Progress Note TCM#2- Spoke with patient, states she is doing 'okay.' Notes she tried to return to work and could not complete her job due to perfuse sweating and heart pounding. 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 Denies any further episodes. Patient did have US thyroid today and has follow up with neuro later this am. Patient states she did take a leave from work and may need FMLA forms completed, CN advised patient to bring to office or fax as needed. She verbalized understanding. Patient has been monitoring BP, notes has been ranging from 133-144/74-90's. Reviewed best practice for checking BP. Reviewed modifiable risk factors that can influence BP with patient. Patient avoids salt. Patient notes she has not smoked a cig. since d/c, admits she does vape once in a while if she has a craving. Tobacco/nicotine cessation discussed. Patient refuses to try nicotine patches. Patient does report she feels better on BP medication. Patient denies any SUMMERS/ migraine since d/c. Patient c/o chronic pain in joints, legs, feet, ankles, and hips. Notes Tylenol and ibuprofen is not effective. CN suggested other non- medication pain relief therapies. Patient notes she was to see a vascular dr in past for varicose veins and never followed through d/t lack of insurance. Advised patient when she is ready for referral let CN or office staff know. Patient states her main focus right now is getting her thyroid figured out. Patient notes she has a baby nephew 'clinging to life' in hospital and that is taking some of her time, focus, and energy. Patient is eating and drinking. Patient is motivated to get on track health [place], but would like to take care of one thing at a time. Patient denies any further questions or concerns at this time. Communication Events Date: September 22, 2024 Method: Phone call Type: Outbound Duration (min): 17 Outcome: Case discussion Contact Type: Patient Contact Name: DIANE SAM Notes: TCM#2- See tcm note. Created By: [place] Date: September 15, 2024 Method: In-person Type: -- Duration (min): -- Outcome: Case discussion Contact Type: Primary care provider Contact Name: -- Notes: TCM#1-OV Created By: [place] [facility] Ambulatory Visit Summaryon 1 Ambulatory Visit Summary Ambulatory Visit Summary DIANE SAM :1975 Visit Date:09/15/2024 Ambulatory Visit Instructions Your Diagnosis HTN (hypertension) Migraine headache Thyroid nodule incidentally noted on imaging study Encounter to establish care Smoker BMI 45.0-49.9, adult, Body mass index [BMI] 45.0-49.9, adult Morbid obesity with BMI of 45.0-49.9, adult Body mass index [BMI] 40.0-44.9, adult Your Care Team Attending Physician - JESSICA DIANE CNP Primary Care Physician - JESSICA DIANE CNP This Is Your Medications List acetaminophen (acetaminophen 325 mg Tab) atorvastatin (atorvastatin 40 mg Tab) losartan (losartan 50 mg Tab) Procedures Performed Tubal ligation done (12/25/1996). Discharge Vitals Temperature (Oral) 37.0 ???C Heart Rate (Peripheral) 90 Respiratory Rate 20 Blood Pressure 142/90 Height 165.0 cm Height 65 in Weight 125.2 kg Weight 275.44 lb BMI 45.99 What to do next Scheduled Follow-Up Appointments Friday 9:00 AM EST With: JESSICA DIANE CNP Where: [place] [phone]- You Need to Complete the Following US Thyroid, 09/15/24, Routine, Order for future visit, Transport Mode: Wheelchair, Reason: Other (please specify), No, Thyroid nodule incidentally noted on imaging study, pp_set_radiology_sub specialty, [facility] Someone Will Contact You Regarding These Appointments [facility] External Ambulatory Referral, Neurology, 09/15/24 13:00:00 EDT, Migraine headache Medications What How Much When Instructions Unchanged acetaminophen (acetaminophen 325 mg Tab) 1 Tablets By Mouth Every 4 hours as needed for for pain Unchanged atorvastatin (atorvastatin 40 mg Tab) 1 Tablets By Mouth At bedtime Unchanged losartan (losartan 50 mg Tab) 1 Tablets By Mouth Every day Allergies penicillins (Unknown) HYDROcodone (Vomiting) Problems Ongoing - Any problem that you are currently receiving treatment for. Smoker Patient Survey You may receive a survey via text or e-mail asking about your office visit. Please share your experience with us by completing your survey. We appreciate your feedback and thank you for choosing us for your care. Normal [facility] Family Medicine Office/Clini c Noteon 09-15-2024 Family Medicine Office/Clinic Note Family Medicine Office/Clinic Note HPI Staff Diane is a 49 year female presenting with Establish Care: History: Any previous diagnosis: fibroid in uterus, hypertension History of seeing any specialist: no When was your last doctors visit: Last provider: [facility] Any recent labs: [facility] Health Maintenance UTD: Colonoscopy: NO Mammogram: NO Pelvic/Pap: 5 years ago Acute: Current issues/complaints: TCM: Hospital: [facility] Admission date: 09/13/24 Discharge date: 09/14/24 Symptoms the patient presented with: vision was blurry and vision she was turning blue, b/p was high History of Present Illness Patient present today to establish care after a recent admission to [facility] for TIA. 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 The squad was called and she was taken to [facility]. Her blood pressure was elevated at that time and she was concerned she may have a stroke. She was admitted to the hospital and she had a CT Of the neck and brain. The CT of the brain was negative for stroke or bleeding. The CT of the neck showed some minor stenosis of the internal carotid on the left and two nodules in the left thyroid lobe that should be evaluated with an US Of the thyroid. It was also recommended that she be referred to neurology for the migraine headaches. She started Losartan 50 mg one tablet PO on 09/14/2024 and she did not check her blood pressure before coming today. Her blood pressure today in the office is 142/90. Review of Systems PHQ Score Initial Depression Screen Score: 0 SCORE Constitutional: no fever, no chills, no sweats, no weakness Skin: no Jaundice, no rash, no lesions, nopetechiae ENMT: no ear pain, no sore throat, no congestion, no hoarseness Respiratory: no shortness of breath, no cough, no orthopnea, no wheezing Cardiovascular: no chest pain, no palpitations, no edema Gastrointestinal: no nausea, no vomiting, no diarrhea, no GI bleeding Genitourinary: no dysuria, no hematuria, no discharge, no pain Musculoskeletal: no back pain, no trauma Neurologic: no headache, no dizziness, no numbness, no weakness Psychiatric: no sleeping problems, no irritability, no mood swings/depression. Heme/Lymph: no bleeding tendency, no bruising tendency, no petechiae, no swollen nodes Allergy/Immunologic: no seasonal allergies, no food allergies, no recurrent infections, no impaired immunity Additional ROS info: Except as noted in the above Review of Systems and in the History of Present Illness all other systems have been reviewed and are negative or noncontributory. Physical Exam Vitals & Measurements T: 37.0 ???C(Oral) HR: 90(Peripheral) RR: 20 BP: 142/90 SpO2: 98% HT: 65 in HT: 165.0 cm WT: 125.2 kg WT: 275.44 lb BMI: 45.99 General: alert, no acute distress Skin: warm, dry Head: no trauma, normocephalic Neck: Trachea midline, no adenopathy, no tenderness Eye: normal conjunctiva, sclera clear ENMT: TM's clear, oral mucosa moist, no pharyngeal erythema or exudate Cardiovascular: regular rate and rhythm, normal peripheral perfusion Respiratory: Lungs CTA, respirations non labored Chest wall: no deformity. Gastrointestinal: soft, non distended, no tenderness, no guarding. Back: No tenderness, Normal ROM, Normal alignment. Extremities: no deformity, no trauma Neurological: oriented x 4, LOC appropriate for age, CN II-XII intact, motor strength equal & normal bilaterally, sensation equal & normal bilaterally, speech normal Psychiatric: cooperative, affect appropriate for age, normal judgement, normal psychiatric thoughts. Assessment/Plan 1. HTN (hypertension) (I10: Essential (primary) hypertension) Encouraged low sodium diet & exercise Losartan 50 mg one tablet po daily f/u in 4 weeks Ordered: TCM Trans care mgmt 7 day disch [id number] 2. Migraine headache (G43.909: Migraine, unspecified, not intractable, without status migrainosus) Discussed with patient headache may be related to blood pressure Referral placed for neurology Ordered: [facility] External Ambulatory Referral TCM Trans care mgmt 7 day disch [id number] 3. Thyroid nodule incidentally noted on imaging study (E04.1: Nontoxic single thyroid nodule) two nodules in the left thyroid lobe noted on CT Of Neck Ordered: TCM Trans care mgmt 7 day disch [id number] US Thyroid 4. Encounter to establish care (Z76.89: Persons encountering health services in other specified circumstances) Ordered: TCM Trans care mgmt 7 day disch [id number] 5. Smoker (F17.200: Nicotine dependence, unspecified, uncomplicated) We strongly recommend to quit tobacco use. Cigarette smoking harms nearly every organ of the body, causes many diseases, and reduces the health of smokers in general. Quitting smoking lowers your risk for smoking-related diseases and can add years to your life. We encourage you to visit www.smokefree.gov access to helpful resources including free telephone support. (more content not included)... Normal [facility] Comment on above: Result Comment: Elec tronically Signed By: JESSICA DIANE CNP\Date and Time Signed: 09/15/24 13:57 EDT CBC w/ Auto Diffon 4 Basophils/100 WBC (Bld) 1.1 % Normal 0.0-2.0 [facility] Comment on above: Performed By: #### 2 [id number] #### [facility] [address] [place] [address] Basophils/Leukocytes Auto (Bld) [Pure # fraction] 0.1 E9/L Normal 0.0-0.2 [facility] Comment on above: Performed By: #### 2 [id number] #### [facility] [address] [place] [address] Eosinophils (Bld) [#/Vol] 0.3 E9/L Normal 0.0-0.5 [facility] Comment on above: Performed By: #### 2 [id number] #### [facility] [address] [place] [address] Eosinophils/100 WBC (Bld) 2.5 % Normal 0.0-8.0 [facility] Comment on above: Performed By: #### 2 [id number] #### [facility] [address] [place] [address] Erythrocyte distribution width (RBC) [Ratio] 15.4 % High 10.9-14.2 [facility] Comment on above: Performed By: #### 2 [id number] #### [facility] [address] [place] [address] Hematocrit (Bld) [Volume fraction] 40.0 % Normal 34.0-46.0 [facility] Comment on above: Performed By: #### 2 [id number] #### [facility] [address] [place] [address] Hemoglobin (Bld) [Mass/Vol] 13.5 g/dL Normal 12.0-16.0 [facility] Comment on above: Performed By: #### 2 [id number] #### [facility] [address] [place] [address] Lymphocytes (Bld) [#/Vol] 2.8 E9/L Normal 1.0-4.0 [facility] Comment on above: Performed By: #### 2 [id number] #### [facility] [address] [place] [address] Lymphocytes/100 WBC (Bld) 21.1 % Normal 14.0-50.0 [facility] Comment on above: Performed By: #### 2 [id number] #### [facility] [address] [place] [address] MCH (RBC) [Entitic mass] 27.7 pg Normal 27.0-34.0 [facility] Comment on above: Performed By: #### 2 [id number] #### [facility] [address] [place] [address] MCHC (RBC) [Mass/Vol] 33.7 g/dL Normal 31.4-36.0 [facility] Comment on above: Performed By: #### 2 [id number] #### [facility] [address] [place] [address] MCV (RBC) [Entitic vol] 82.3 fL Normal 80.0-100.0 [facility] Comment on above: Performed By: #### 2 [id number] #### [facility] [address] [place] [address] Monocytes (Bld) [#/Vol] 0.6 E9/L Normal 0.2-1.0 [facility] Comment on above: Performed By: #### 2 [id number] #### [facility] [address] [place] [address] Neutrophils (Bld) [#/Vol] 9.4 E9/L High 2.0-7.5 [facility] Comment on above: Performed By: #### 2 [id number] #### [facility] [address] [place] [address] Neutrophils/100 WBC (Bld) 70.8 % Normal 36.0-75.0 [facility] Comment on above: Performed By: #### 2 [id number] #### [facility] [address] [place] [address] Platelet 304.0 E9/L Normal 150.0-500.0 [facility] Comment on above: Performed By: #### 2 [id number] #### [facility] [address] [place] [address] Platelet mean volume (Bld) [Entitic vol] 8.7 fL Normal 6.4-10.8 [facility] Comment on above: Performed By: #### 2 [id number] #### [facility] [address] [place] [address] RBC (Bld) [#/Vol] 4.9 E12/L Normal 4.3-5.9 [facility] Comment on above: Performed By: #### 2 [id number] #### [facility] [address] [place] [address] WBC corrected for nucl RBC Auto (Bld) [#/Vol] 13.3 E9/L High 4.0-11.0 [facility] Comment on above: Performed By: #### 2 [id number] #### [facility] [address] [place] [address] CHEMISTRYOrdered By: SYSTEM SYSTEM on 09-14-2024 Albumin [Mass/Vol] 4.0 g/dL Normal 3.3 - 5.0 gm/dL [facility] Albumin/Globulin [Mass ratio] 1.5 {ratio} Normal 1.1 - 2.2 [facility] ALP [Catalytic activity/Vol] 70 [iU]/d Normal 21 - 98 Int._Unit/L [facility] ALT No additional P-5'-P [Catalytic activity/Vol] 18 [iU]/d Normal 6 - 46 Int._Unit/L [facility] Anion gap [Moles/Vol] 9 mmol/L Normal 6 - 16 mEq/L R emisol Chem AST [Catalytic activity/Vol] 15 [iU]/d Normal 5 - 43 Int._Unit/L [facility] Bilirubin [Mass/Vol] 0.6 mg/dL Normal 0.0 - 1 .1 mg/dL [facility] Calcium [Mass/Vol] 8.9 mg/dL Normal 8.9 - 11. 1 mg/dL [facility] Chloride [Moles/Vol] 103 mmol/L Normal 101 - 1 11 mmol/L [facility] Cholesterol [Mass/Vol] 198 mg/dL Normal 120 - 200 mg/dL [facility] Cholesterol in HDL [Mass/Vol] 50 mg/dL Invalid Interpretation Code [facility] Comment on above: Result Comment: '>= 60 LOW RISK' '<= 40 HIGH RISK' Cholesterol in LDL [Mass/Vol] 132 mg/dL High <=129mg/dL [facility] Cholesterol in VLDL [Mass/Vol] 34 mg/dL Normal 7 - 40 mg/dL [facility] CO2 [Moles/Vol] 31 mmol/L Normal 21 - 31 mmol/L [facility] Creatinine [Mass/Vol] 0.6 mg/dL Normal 0.5 - 1.3 mg/dL [facility] eGFR 110 mL/min/1.73 m2 Normal >=59mL/mi n/1 .73 m2 [facility] Globulin (S) [Mass/Vol] 2.7 g/dL Normal 1.4 - 4.0 gm/dL [facility] Glucose [Mass/Vol] 124 mg/dL Normal 55 - 199 mg/dL [facility] Potassium [Moles/Vol] 4.5 mmol/L Normal 3.5 - 5.3 mmol/L [facility] Protein [Mass/Vol] 6.7 g/dL Normal 6.0 - 7.8 gm/dL [facility] Sodium [Moles/Vol] 138 mmol/L Normal 135 - 145 mmol/L [facility] Triglyceride [Mass/Vol] 170 mg/dL High <=149mg/dL [facility] Urea nitrogen [Mass/Vol] 9 mg/dL Normal 5 - 21 mg/dL [facility] Urea nitrogen/Creatinine [Mass ratio] 15 mg/mg Normal 10 - 20 [facility] CMPon 09-14-2024 Albumin/Globulin (S) [Mass conc ratio] 1.5 Normal 1.1-2.2 [facility] Comment on above: Performed By: #### 2 [id number] #### [facility] [address] [place] [address] Globulin (S) [Mass/Vol] 2.7 g/dL Normal 1.4-4.0 [facility] Comment on above: Performed By: #### 2 [id number] #### [facility] [address] [place] [address] Protein [Mass/Vol] 6.7 g/dL Normal 6.0-7.8 [facility] Comment on above: Performed By: #### 2 [id number] #### [facility] [address] [place] [address] Albumin [Mass/Vol] 4.0 g/dL Normal 3.3-5.0 [facility] Comment on above: Performed By: #### 2 [id number] #### [facility] [address] [place] [address] ALP [Catalytic activity/Vol] 70 Int._Unit/L Normal 21-98 [facility] Comment on above: Performed By: #### 2 [id number] #### [facility] [address] [place] [address] ALT No additional P-5'-P [Catalytic activity/Vol] 18 Int._Unit/L Normal 6-46 [facility] Comment on above: Performed By: #### 2 [id number] #### [facility] [address] [place] [address] Anion gap [Moles/Vol] 9 mmol/L Normal 6-16 [facility] Comment on above: Performed By: #### 2 [id number] #### [facility] [address] [place] [address] AST [Catalytic activity/Vol] 15 Int._Unit/L Normal 5-43 [facility] Comment on above: Performed By: #### 2 [id number] #### [facility] [address] [place] [address] Bilirubin [Mass/Vol] 0.6 mg/dL Normal 0.0-1.1 [facility] Comment on above: Performed By: #### 2 469756 #### [facility] [address] [place] [address] Calcium [Mass/Vol] 8.9 mg/dL Normal 8.9-11.1 [facility] Comment on above: Performed By: #### 2 [id number] #### [facility] [address] [place] [address] Chloride [Moles/Vol] 103 mmol/L Normal 101-111 [facility] Comment on above: Performed By: #### 2 636261 #### [facility] [address] [place] [address] CO2 [Moles/Vol] 31 mmol/L Normal 21-31 [facility] Comment on above: Performed By: #### 2 460763 #### [facility] [address] [place] [address] Creatinine [Mass/Vol] 0.6 mg/dL Normal 0.5-1.3 [facility] Comment on above: Performed By: #### 2 853002 #### [facility] [address] [place] [address] Glucose [Mass/Vol] 124 mg/dL Normal 55-199 [facility] Comment on above: Performed By: #### 2 [id number] #### [facility] [address] [place] [address] Potassium [Moles/Vol] 4.5 mmol/L Normal 3.5-5.3 [facility] Comment on above: Performed By: #### 2 [id number] #### [facility] [address] [place] [address] Sodium [Moles/Vol] 138 mmol/L Normal 135-145 [facility] Comment on above: Performed By: #### 2 [id number] #### [facility] [address] [place] [address] Urea nitrogen [Mass/Vol] 9 mg/dL Normal 5-21 [facility] Comment on above: Performed By: #### 2 [id number] #### [facility] [address] [place] [address] Urea nitrogen/Creatinine [Mass ratio] 15 No Units Normal - [facility] Comment on above: Performed By: #### 2 [id number] #### [facility] [address] [place] [address] CTA Headon 09-14-2024 CTA Head Exam Date/Time: 09/13/2024 22:16 EDT Reason for Exam: TIA Report PLEASE REFER TO THE CTA NECK REPORT. All CT scans at this facility use dose modulation, iterative reconstruction, and/or weight based dosing when appropriate to reduce radiation dose to as low as reasonably achievable. Ordering Provider: Arturo Cunningham FINAL REPORT Dictated: 09/14/2024 8:34 am Javier Sanon M.D. Signed (Electronic Signature): 09/14/2024 8:34 am Signed by: Javier Sanon M.D. Transcribed by: BRIAN Technologist: RAO Technical Comments GFR (mL/min/1/73m2) na - age Contrast: Isovue 370 Contrast amount in ml's: 100 Normal [facility] CTA Neckon 09-14-2024 CTA Neck Exam Date/Time: 09/13/2024 22:16 EDT Reason for Exam: TIA Report IMPRESSION: SHORT SEGMENT MILD STENOSIS AT THE ORIGIN OF THE LEFT INTERNAL CAROTID ARTERY. THE NECK ARTERIES BILATERALLY ARE OTHERWISE UNREMARKABLE. NO SIGNIFICANT STENOSIS OF INTRACRANIAL ARTERIES. CLINICAL HISTORY: TIA. Dizziness. Blurred vision. COMMENT: Axial images were obtained after the rapid injection of IV contrast with narrow collimation and reconstructed at a narrow interval. Coronal and sagittal reconstructions were performed. On the PACS, images were reviewed in cine display. 3D MIP postprocessed images were obtained.\[id number]\. The origins of the great vessels off the aortic arch are unremarkable. The innominate artery, right subclavian artery, and right common carotid artery appear normal. No significant stenosis is noted at the right carotid bifurcation. There is tortuosity of the right internal carotid artery in the neck, with the right internal carotid artery in the neck otherwise normal, without significant stenosis. The right external carotid artery is unremarkable. The left common carotid artery is normal in appearance. There is short segment mild (25-30%) stenosis at the origin of the left internal carotid artery. There is tortuosity of the left internal carotid artery in the neck. The left external carotid artery is unremarkable. The right subclavian artery is normal in appearance. Both vertebral arteries are moderate sized vessels and normal in appearance. No significant stenosis, no occlusion, nor dissection of neck arteries is noted. There is contrast opacification of the jugular veins in the neck, without evidence of intraluminal filling defect. Of incidental note, there is some enlargement/hypertro phy of adenoids and tonsils, with apparent narrowing of the airway at the level of the choana. There are 0.8 and 0.6 cm low-attenuation nodules in the left thyroid lobe, and thyroid ultrasound is a consideration for further evaluation. The distal internal carotid arteries, the distal vertebral arteries, the basilar artery, the vessels of the pala of [place], and the anterior, middle, and posterior cerebral arteries bilaterally appear normal. No significant stenosis, no occlusion, nor aneurysm is noted. No contrast enhancing lesion nor abnormal contrast enhancement within the brain is evident. There is contrast opacification of dural venous sinuses, and no intraluminal filling defect is noted. Estimation of carotid stenosis is based on NASCET criteria. All CT scans at this facility use dose modulation, iterative reconstruction, and/or weight based dosing when appropriate to reduce radiation dose to as low as reasonably achievable. Report Ordering Provider: Arturo Cunningham FINAL REPORT Dictated: 09/14/2024 8:33 am Javier Sanon M.D. Signed (Electronic Signature): 09/14/2024 8:33 am Signed by: Javier Sanon M.D. Transcribed by: BRIAN Technologist: RAO Technical Comments GFR (mL/min/1/73m2) na - age Contrast: Isovue 370 Contrast amount in ml's: 100 Normal [facility] Discharge Note-Nursingon Discharge Note-Nursing Discharge Note-Nursing DIANE SAM :1975 Visit Date:09/13/2024 Inpatient Discharge Instructions Your Care Team Admitting Physician - Arturo Cunningham III, DO Consulting Physician - Beatrice Hogue MD Reason for Your Visit blurry vision, headache, blue fingers and HTN, felt weak Your Diagnosis Migraine headache Transient cerebral ischemic attack, unspecified Headache Tobacco dependency Hypertension Morbid obesity Headache Hypertension Potential stroke Vision changes Tests Performed Brain MRI w/o Contrast CT Head or Brain w/o Contrast CTA Head CTA Neck XR Chest Single View This Is Your Medications List acetaminophen (acetaminophen 325 mg Tab) atorvastatin (atorvastatin 40 mg Tab) losartan (losartan 50 mg Tab) [Image Removed: STOP]Stop taking these medications predniSONE (predniSONE 10 mg Tab) Discharge Vitals Temperature (Axillary) 37 ???C Heart Rate (Monitored) 76 Respiratory Rate 19 Blood Pressure 159/95 Height 162.56 cm Weight 126.5 kg BMI 44.65 What to do next Instructions From Your Doctor Event Name Event Result Discharge Activity Ambulate as tolerated Discharge Restrictions No restrictions Discharge Diet(s) Regular Pending Diagnostic Test Results None Discharge Instructions Return to ER if symptoms return or worsen. Follow up with neurology and establish with primary care doctor. Take meds as prescribed. Atorvastatin may cause muscle pain as discussed. Stop if you experience severe symptoms with it as talk to primary doctor Previously Scheduled Follow-Up Appointments Friday 1:00 PM EDT With: JESSICA DIANE CNP Where: [facility] Medicine [address] [address]- New Follow Up Appointments after Discharge Follow Up with Beatrice Hogue MD, NEU When: 10/11/2024 09:00 AM EST Comments: Will be seeing Cheryl HERR at this appointment. Where: [address] [address]- Business (1) Follow Up with XXXX NONE When: Where: [place] Medications What How Much When Instructions Next Dose New atorvastatin (atorvastatin 40 mg Tab) 1 Tablets By Mouth At bedtime Pickup at [id number] Tonight at 9:00 PM New losartan (losartan 50 mg Tab) 1 Tablets By Mouth Every day Pickup at [id number] Begin 09/15/2024 Unchanged acetaminophen (acetaminophen 325 mg Tab) 1 Tablets By Mouth Every 4 hours as needed for for pain As needed Pharmacy Information [id number]: [address], [place] [id number] [phone] What How Much When Comments Stop Taking predniSONE (predniSONE 10 mg Tab) 1 Dose Separtor By Mouth As Directed 6 tabs for 2 days,5 tabs for 2 days,4 tabs for 2 days,3 tabs for 2 days,2 tabs for 2 days,1 tab for 2 days Test Results CBC BMP WBC: 13.3 E9/L High (09/14/24 06:17:00) Glucose Lvl: 124 mg/dL (09/14/24 06:17:00) RBC: 4.9 E12/L (09/14/24 06:17:00) BUN: 9 mg/dL (09/14/24 06:17:00) HGB: 13.5 gm/dL (09/14/24:17:00) Creatinine: 0.6 mg/dL (09/14/24 06:17:00) Hct: 40 % (09/14/24 06:17:00) BUN/Creat Ratio: 15 (09/14/24 06:17:00) MCV: 82.3 fL (09/14/24 06:17:00) Sodium Lvl: 138 mmol/L (09/14/24 06:17:00) MCH: 27.7 pg (09/14/24 06:17:00) Potassium Lvl: 4.5 mmol/L (09/14/24 06:17:00) MCHC: 33.7 gm/dL (09/14/24 06:17:00) Chloride: 103 mmol/L (09/14/24 06:17:00) RDW: 15.4 % High (09/14/24 06:17:00) CO2: 31 mmol/L (09/14/24 06:17:00) Platelet: 304 E9/L (09/14/24 06:17:00) AGAP: 9 mEq/L (09/14/24 06:17:00) MPV: 8.7 fL (09/14/24 06:17:00) Calcium Lvl: 8.9 mg/dL (09/14/24 06:17:00) Allergies HYDROcodone (Vomiting) penicillins (Unknown) Problems Ongoing - Any problem that you are currently receiving treatment for. Smoker Education Materials Blood Pressure Record Sheet To take your blood pressure, you will need a blood pressure machine. You may be prescribed one, or you can buy a blood pressure machine (blood pressure monitor) at your clinic, drug store, or online. When choosing one, look for these features: ??? An automatic monitor that has an arm cuff. ??? A cuff that wraps snugly, but not too tightly, around your upper arm. You should be able to fit only one finger between your arm and the cuff. ??? A device that stores blood pressure reading results. ??? Do not choose a monitor that measures your blood pressure from your wrist or finger. Follow your health care provider's instructions for how to take your blood pressure. To use this form: ??? Get one reading in the morning (a.m.) before you take any medicines. ??? Get one reading in the evening (p.m.) before supper. ??? Take at least two readings with each blood pressure check. This makes sure the results are correct. Wait 1???2 minutes between measurements. ??? Write down the results in the spaces on this form. ??? Repe (more content not included)... Normal [facility] LIPID PANELon [facility] CHOLESTEROL.IN LDL:[facility]:PT:SER/PLAS: QN: 132 mg/dL [facility]dL [facility] CHOLESTEROL.IN VLDL:[facility]:PT:SER/PLAS :QN:CALCULATED 34 mg/dL 7 - 40 mg/dL [facility] TRIGLYCERIDE:NC:PT: SER/PLAS:QN: 170 mg/dL High NINF - 149 mg/dL [facility] Interpretation and review of laboratory results Abnormal [facility] Magnesium [Mass/Vol] 50 mg/dL [facility] Comment on above: '>= 60 LOW RISK' '<= 40 HIGH RISK' Original Ordering Provider: [facility] HEMATOLOGYOrdered By: SYSTEM SYSTEM on 09-14-2024 Basophils/100 WBC (Bld) 1.1 % Normal 0.0 - 2.0 % Remisol Heme Basophils/Leukocytes Auto (Bld) [Pure # fraction] 0.1 E9/L Normal 0.0 - 0.2 E9/L Rem[facility] Heme Eosinophils (Bld) [#/Vol] 0.3 E9/L Normal 0.0 - 0.5 E9/L Remisol Heme Eosinophils/100 WBC (Bld) 2.5 % Normal 0.0 - 8.0 % Remisol Heme Erythrocyte distribution width (RBC) [Ratio] 15.4 % High 10.9 - 14.2 % Remisol Heme Hematocrit (Bld) [Volume fraction] 40.0 % Normal 34.0 - 46.0 % Remisol Heme Hemoglobin (Bld) [Mass/Vol] 13.5 g/dL Normal 12.0 - 16.0 gm/dL [facility] Heme Lymphocytes (Bld) [#/Vol] 2.8 E9/L Normal 1.0 - 4.0 E9/L Rem[facility] Heme Lymphocytes/100 WBC (Bld) 21.1 % Normal 14.0 - 50.0 % Remisol Heme MCH (RBC) [Entitic mass] 27.7 pg Normal 27.0 - 34.0 pg Remisol Heme MCHC (RBC) [Mass/Vol] 33.7 g/dL Normal 31.4 - 36.0 gm/dL Rem[facility] Heme MCV (RBC) [Entitic vol] 82.3 fL Normal 80.0 - 100.0 fL [facility] Heme Monocytes (Bld) [#/Vol] 0.6 E9/L Normal 0.2 - 1.0 E9/L Remisol Heme Monocytes/100 WBC (Bld) 4.5 % Normal 4.0 - 14.0 % Remisol Heme Neutrophils (Bld) [#/Vol] 9.4 E9/L High 2.0 - 7.5 E9/L Remisol Heme Neutrophils/100 WBC (Bld) 70.8 % Normal 36.0 - 75.0 % [facility] Heme Platelet 304.0 E9/L Normal 150.0 - 500.0 E9/L [facility] Heme Platelet mean volume (Bld) [Entitic vol] 8.7 fL Normal 6.4 - 10.8 fL [facility] Heme RBC (Bld) [#/Vol] 4.9 E12/L Normal 4.3 - 5.9 E12/L [facility] Heme WBC corrected for nucl RBC Auto (Bld) [#/Vol] 13.3 E9/L High 4.0 - 11.0 E9/L [facility] Inpatient Clinical Summaryon 09-14-2024 Inpatient Clinical Summary Inpatient Clinical Summary [address] [address] Clinical Summary Person Information: Name: DIANE SAM Age: 49 Years : 1975 Sex: Female PCP: NONE, XXXX Marital Status: Race: White Ethnicity: Non- or Language: Bulgarian MRN: [id number] Visit Id: Visit Reason: Potential stroke; Vision changes; Headache; Hypertension; HYPERTENSION Speciality: Acuity: Enc Type: Observation Med Service: Medical Arrival: 09/13/2024 14:08:11 Discharge: Dispo Type: Admitted as IP to this Hosp Address: [address] [place] [id number] Provider Notes: Diagnosis: 1:Migraine headache; 3:Headache; 4:Tobacco dependency; 5:Hypertension; 6:Morbid obesity Problems Active Smoker Smoking Status: Current Every Day Smoker Functional Status: Sensory Deficits: History of Falls: Mobility Assistance Prior to Admission: ADLs: Independent Current Level of Assistance for Self-Care/Mobility: Cognitive Status: Oriented x 3 Allergies penicillins (Unknown) HYDROcodone (Vomiting) Measurements: Height: 162.56 cm Weight: 126.5 kg Blood Pressure: 159 mmHg / 95 mmHg BMI: 44.65 kg/m2 Procedures No Procedures Documented Immunizations No Immunizations Documented This Visit Final Med List: acetaminophen (acetaminophen 325 mg Tab) 1 Tablets By Mouth every 4 hours as needed for pain. atorvastatin (atorvastatin 40 mg Tab) 1 Tablets By Mouth at bedtime. Refills: 0. losartan (losartan 50 mg Tab) 1 Tablets By Mouth every day. Refills: 0. Care Team Members: Attending Physician: Arturo Cunningham III, DO Consulting Physician: Beatrice Hogue MD Referring Physician: Follow up: With: Address: When: [place] , [place] With: Address: When: Beatrice Hogue MD, NEU [address] [place] [address] Business (1) 10/11/2024 9:00 AM Comments: Will be seeing Cheryl HERR at this appointment. Patient Education Information: Form - Blood Pressure Record Sheet; How to Take Your Blood Pressure; Migraine Headache Normal [facility] Inpatient Patient Summaryon 09-14-2024 Inpatient Patient Summary Inpatient Patient Summary [address] [address] Patient Discharge Instructions PERSON INFORMATION Name: DIANE SAM Date of : 1975 Current Date: 09/14/2024 11:33:55 PHYSICIANS Admitting Physician: Arturo Cunningham III, DO Primary Care Physician: NONE, XXXX PCP Phone Number: Comment: Discharge Diagnosis: 1:Migraine headache; 3:Headache; 4:Tobacco dependency; 5:Hypertension; 6:Morbid obesity Condition at Discharge: Improved DIANE SAM has been given the following list of follow-up instructions, prescriptions, and patient education materials: PATIENT FOLLOW-UP INFORMATION Diet: Regular Discharge Activity: Ambulate as tolerated Discharge Restrictions: No restrictions Wound Care Instructions: Remove Your Dressing In Days Call Your Doctor For: IF UNABLE TO CONTACT YOUR PHYSICIAN AND YOU FEEL IT IS AN EMERGENCY, GO TO THE NEAREST EMERGENCY ROOM OR CALL 911 Home Treatment: Devices/Equipment: None Special Services: Additional Instructions: Return to ER if symptoms return or worsen. Follow up with neurology and establish with primary care doctor. Take meds as prescribed. Atorvastatin may cause muscle pain as discussed. Stop if you experience severe symptoms with it as talk to primary doctor Primary Care Physician to provide the following pending test results: None Follow up: With: Address: When: [place] , [place] With: Address: When: Mykel MARQUES, LULU Lomeli [address] [facility] [address] [place] [address] [facility] (1) 10/11/2024 9:00 AM Comments: Will be seeing Cheryl HERR at this appointment. In the event that this physician does not participate in your insurance network, please consult with your insurance company to find a nearby participating provider. Comment: ICECY DEANN M, have received the attached patient education materials/instructio ns and have verbalized understanding: Patient Signature Date Clinican/Nurse Signature Date HERE ARE THE MEDICATION CHANGES THAT OCCURRED DURING YOUR HOSPITAL STAY New Medications [id number], [address], [place] [id number], [phone] atorvastatin (atorvastatin 40 mg Tab) 1 Tablets By Mouth at bedtime. Refills: 0. Last Dose: Next Dose: losartan (losartan 50 mg Tab) 1 Tablets By Mouth every day. Refills: 0. Last Dose: Next Dose: Medications to Continue with No Changes Other Medications acetaminophen (acetaminophen 325 mg Tab) 1 Tablets By Mouth every 4 hours as needed for pain. Last Dose: Next Dose: No Longer Take the Following Medications predniSONE (predniSONE 10 mg Tab) 1 Dose Separtor By Mouth As Directed. 6 tabs for 2 days,5 tabs for 2 days,4 tabs for 2 days,3 tabs for 2 days,2 tabs for 2 days,1 tab for 2 days. Refills: 0. Comment: MEDICATION LIST PROVIDED FOR YOU IS A LIST OF YOUR CURRENT MEDICATIONS. PLEASE CARRY THIS WITH YOU AT ALL TIMES. acetaminophen (acetaminophen 325 mg Tab) 1 Tablets By Mouth every 4 hours as needed for pain. atorvastatin (atorvastatin 40 mg Tab) 1 Tablets By Mouth at bedtime. Refills: 0. losartan (losartan 50 mg Tab) 1 Tablets By Mouth every day. Refills: 0. Pharmacy Information: Comment: PATIENT EDUCATION INFORMATION Instructions: Blood Pressure Record Sheet To take your blood pressure, you will need a blood pressure machine. You may be prescribed one, or you can buy a blood pressure machine (blood pressure monitor) at your clinic, drug store, or online. When choosing one, look for these features: ??? An automatic monitor that has an arm cuff. ??? A cuff that wraps snugly, but not too tightly, around your upper arm. You should be able to fit only one finger between your arm and the cuff. ??? A device that stores blood pressure reading results. ??? Do not choose a monitor that measures your blood pressure from your wrist or finger. Follow your health care provider's instructions for how to take your blood pressure. To use this form: ??? Get one reading in the morning (a.m.) before you take any medicines. ??? Get one reading in the evening (p.m.) before supper. ??? Take at least two readings with each blood pressure check. This makes sure the results are correct. Wait 1?2 minutes between measurements. ??? Write down the results in the spaces on this form. ??? Repeat this once a week, or as told by your health care provider. ??? Make a follow-up appointment with your health care provider to discuss the results. Blood pressure log Date: ___ ??? a.m. _(1st reading) _(2nd reading) ??? p.m. (more content not included)... [facility] Interdisciplinary Note - Quique e Manageron 09-14-2024 Interdisciplinary Note - Senior Sql Server Developer Interdisciplinary Note - Senior Sql Server Developer CRM to room 310 Patient is awake, alert and oriented. Patient is from home with his spouse. Patient has no PCP. She verified DME and insurance. Patient is an observation. She came in with Htn, TIA vs migraine. Patient is assigned to Dr Cunningham, see notes. Patient was seen by neurology. Patient should DC today if work up negative. Patient declined any DC needs for DME, HH or Paramedicine. Patient was provided CRM contact, onelia mcdonald updated. CRM following [facility] Comment on above: Result Comment: Elec tronically Signed By: Mile Estevez\.br\Date and Time Signed: 09/14/24 09:28 EDT Interdisciplinary Note - Soc ial Workeron 09-14-2024 Interdisciplinary Note - Warp Yarn Sorter Interdisciplinary Note - Warp Yarn Sorter Patient was discharged prior to SW being able to meet with her to discuss advance directives. SW will remain available. Normal [facility] Lipid Panelon 09-14-2024 Cholesterol [Mass/Vol] 198 mg/dL Normal 120-200 [facility] Comment on above: Performed By: #### 2 [id number] ####[facility] [address] [place] [address] Cholesterol in HDL [Mass/Vol] 50 mg/dL Invalid Interpretation Code [facility] Comment on above: Result Comment: '>= 60 LOW RISK' '<= 40 HIGH RISK' Performed By: #### 2 [id number] ####[facility] [address] [place] [address] Cholesterol in LDL [Mass/Vol] 132 mg/dL High <=129 [facility] Comment on above: Performed By: #### 2 [id number] ####[facility] [address] [place] [address] Cholesterol in VLDL [Mass/Vol] 34 mg/dL Normal 7-40 [facility] Comment on above: Performed By: #### 2 [id number] ####[facility] [address] [place] [address] Triglyceride [Mass/Vol] 170 mg/dL High <=149 [facility] Comment on above: Performed By: #### 2 [id number] ####[facility] [address] [place] [address] MRI Brain w/o Contraston MRI Brain w/o Contrast Exam Date/Time: 09/13/2024 21:54 EDT Reason for Exam: TIA Report IMPRESSION: NO EVIDENCE OF ACUTE/RECENT CEREBRAL INFARCTION. NONSPECIFIC WHITE MATTER FINDINGS. CLINICAL HISTORY: TIA. Weakness. Blurred vision. Headache. COMPARISON: CT head 09/05/2024. COMMENT: Images were obtained without intravenous contrast. The ventricles and basal cisterns and cortical sulci appear normal. There is no mass effect nor midline shift. On T2-weighted and FLAIR images, there is a small area of increased signal intensity involving periventricular white matter adjacent to the atrium of the right lateral ventricle at the right parietotemporal junction and there are few small areas of increased signal intensity involving subcortical white matter at right and left parieto-occipital junctions. These areas of increased signal intensity are nonspecific, possibly due to small vessel ischemic changes. There is no evidence of acute/recent infarction on the diffusion weighted images. No mass lesion is evident. There is no evidence of parenchymal brain hemorrhage nor extra-axial hematoma. Ordering Provider: Arturo Cunningham FINAL REPORT Dictated: 09/14/2024 8:00 am Javier Sanon M.D. Signed (Electronic Signature): 09/14/2024 8:00 am Signed by: Javier Sanon M.D. Transcribed by: BRIAN Technologist: WEST Technical Comments None Normal [facility] eGFRon 09-14-2024 eGFR 110 mL/min/1.73 m2 Normal >=59 [facility] Comment on above: Performed By: #### 1 [id number] #### [facility] [address] [place] [address] BB Draw & Holdon 09-13-2024 BB D&H Sample drawn for Blood Ba Normal [facility] Comment on above: Performed By: #### 1 [id number] #### [facility] [address] [place] [address] CBC w/ Auto Diffon 4 Basophils/100 WBC (Bld) 1.1 % Normal 0.0-2.0 [facility] Comment on above: Performed By: #### 2 [id number] #### [facility] [address] [place] [address] Basophils/Leukocytes Auto (Bld) [Pure # fraction] 0.2 E9/L Normal 0.0-0.2 [facility] Comment on above: Performed By: #### 2 [id number] #### [facility] [address] [place] [address] Eosinophils (Bld) [#/Vol] 0.2 E9/L Normal 0.0-0.5 [facility] Comment on above: Performed By: #### 2 [id number] #### [facility] [address] [place] [address] Eosinophils/100 WBC (Bld) 1.0 % Normal 0.0-8.0 [facility] Comment on above: Performed By: #### 2 [id number] #### [facility] [address] [place] [address] Erythrocyte distribution width (RBC) [Ratio] 15.0 % High 10.9-14.2 [facility] Comment on above: Performed By: #### 2 [id number] #### [facility] [address] [place] [address] Hematocrit (Bld) [Volume fraction] 41.5 % Normal 34.0-46.0 [facility] Comment on above: Performed By: #### 2 [id number] #### [facility] [address] [place] [address] Hemoglobin (Bld) [Mass/Vol] 13.8 g/dL Normal 12.0-16.0 [facility] Comment on above: Performed By: #### 2 [id number] #### [facility] [address] [place] [address] Lymphocytes (Bld) [#/Vol] 2.8 E9/L Normal 1.0-4.0 [facility] Comment on above: Performed By: #### 2 [id number] #### [facility] [address] [place] [address] Lymphocytes/100 WBC (Bld) 17.2 % Normal 14.0-50.0 [facility] Comment on above: Performed By: #### 2 [id number] #### [facility] [address] [place] [address] MCH (RBC) [Entitic mass] 27.4 pg Normal 27.0-34.0 [facility] Comment on above: Performed By: #### 2 [id number] #### [facility] [address] [place] [address] MCHC (RBC) [Mass/Vol] 33.3 g/dL Normal 31.4-36.0 [facility] Comment on above: Performed By: #### 2 [id number] #### [facility] [address] [place] [address] MCV (RBC) [Entitic vol] 82.4 fL Normal 80.0-100.0 [facility] Comment on above: Performed By: #### 2 [id number] #### [facility] [address] [place] [address] Monocytes (Bld) [#/Vol] 0.6 E9/L Normal 0.2-1.0 [facility] Comment on above: Performed By: #### 2 [id number] #### [facility] [address] [place] [address] Neutrophils (Bld) [#/Vol] 12.3 E9/L High 2.0-7.5 [facility] Comment on above: Performed By: #### 2 [id number] #### [facility] [address] [place] [address] Neutrophils/100 WBC (Bld) 76.7 % High 36.0-75.0 [facility] Comment on above: Performed By: #### 2 [id number] #### [facility] [address] [place] [address] Platelet mean volume (Bld) [Entitic vol] 8.8 fL Normal 6.4-10.8 [facility] Comment on above: Performed By: #### 2 [id number] #### [facility] [address] [place] [address] Platelets (Bld) [#/Vol] 304.0 E9/L Normal 150.0-500.0 [facility] Comment on above: Performed By: #### 2 [id number] #### [facility] [address] [place] [address] RBC (Bld) [#/Vol] 5.0 E12/L Normal 4.3-5.9 [facility] Comment on above: Performed By: #### 2 [id number] #### [facility] [address] [place] [address] WBC corrected for nucl RBC Auto (Bld) [#/Vol] 16.1 E9/L High 4.0-11.0 [facility] Comment on above: Result Comment: Deb pheral smear review performed. Performed By: #### 2 [id number] #### [facility] [address] [place] [address] CHEMISTRYOrdered By: SYSTEM SYSTEM on 09-13-2024 Albumin [Mass/Vol] 3.9 g/dL Normal 3.3 - 5.0 gm/dL [facility] Chem Albumin/Globulin [Mass ratio] 1.2 {ratio} Normal 1.1 - 2.2 [facility] ALP [Catalytic activity/Vol] 70 [iU]/d Normal 21 - 98 Int._Unit/L [facility] Chem ALT No additional P-5'-P [Catalytic activity/Vol] 20 [iU]/d Normal 6 - 46 Int._Unit/L [facility] Anion gap [Moles/Vol] 13 mmol/L Normal 6 - 16 mEq/L R emisol Chem AST [Catalytic activity/Vol] 16 [iU]/d Normal 5 - 43 Int._Unit/L [facility] Bilirubin [Mass/Vol] 0.5 mg/dL Normal 0.0 - 1 .1 mg/dL [facility] Calcium [Mass/Vol] 8.8 mg/dL Low 8.9 - 11. 1 mg/dL [facility] Chloride [Moles/Vol] 100 mmol/L Low 101 - 1 11 mmol/L [facility] CO2 [Moles/Vol] 27 mmol/L Normal 21 - 31 mmol/L [facility] Creatinine [Mass/Vol] 0.6 mg/dL Normal 0.5 - 1.3 mg/dL [facility] eGFR 110 mL/min/1.73 m2 Normal >=59mL/mi n/1 .73 m2 [facility] Globulin (S) [Mass/Vol] 3.2 g/dL Normal 1.4 - 4.0 gm/dL [facility] Glucose [Mass/Vol] 103 mg/dL Normal 55 - 199 mg/dL [facility] Potassium [Moles/Vol] 3.8 mmol/L Normal 3.5 - 5.3 mmol/L [facility] Protein [Mass/Vol] 7.1 g/dL Normal 6.0 - 7.8 gm/dL [facility] Sodium [Moles/Vol] 136 mmol/L Normal 135 - 145 mmol/L [facility] Troponin HS 5.10 pg/mL Low 10.10 - 27.10 pg/mL [facility] Comment on above: Interpretive Data: T he 95% CI (Confidence Interval) PPV (Positive Predictive Value) for myocardial infarction in females is 38 pg/mL, in males 51 pg/mL. The results should be used in conjunction with clinical conditions of myocardial infarction. (Access High Sensitivity Troponin I Instructions For Use, [employer], June 2018) Urea nitrogen [Mass/Vol] 10 mg/dL Normal 5 - 21 mg/dL [facility] Urea nitrogen/Creatinine [Mass ratio] 17 mg/mg Normal 10 - 20 [facility] CMPon 09-13-2024 Albumin [Mass/Vol] 3.9 g/dL Normal 3.3-5.0 [facility] Comment on above: Performed By: #### 2 [id number] #### [facility] [address] [place] [address] Albumin/Globulin (S) [Mass conc ratio] 1.2 Normal 1.1-2.2 [facility] Comment on above: Performed By: #### 2 [id number] #### [facility] [address] [place] [address] ALP [Catalytic activity/Vol] 70 Int._Unit/L Normal 21-98 [facility] Comment on above: Performed By: #### 2 [id number] #### [facility] [address] [place] [address] ALT No additional P-5'-P [Catalytic activity/Vol] 20 Int._Unit/L Normal 6-46 [facility] Comment on above: Performed By: #### 2 [id number] #### [facility] [address] [place] [address] Anion gap [Moles/Vol] 13 mmol/L Normal 6-16 [facility] Comment on above: Performed By: #### 2 [id number] #### [facility] [address] [place] [address] AST [Catalytic activity/Vol] 16 Int._Unit/L Normal 5-43 [facility] Comment on above: Performed By: #### 2 [id number] #### [facility] [address] [place] [address] Bilirubin [Mass/Vol] 0.5 mg/dL Normal 0.0-1.1 [facility] Comment on above: Performed By: #### 2 758013 #### [facility] [address] [place] [address] Calcium [Mass/Vol] 8.8 mg/dL Low 8.9-11.1 [facility] Comment on above: Performed By: #### 2 [id number] #### [facility] [address] [place] [address] Chloride [Moles/Vol] 100 mmol/L Low 101-111 [facility] Comment on above: Performed By: #### 2 [id number] #### [facility] [address] [place] [address] CO2 [Moles/Vol] 27 mmol/L Normal 21-31 [facility] Comment on above: Performed By: #### 2 [id number] #### [facility] [address] [place] [address] Creatinine [Mass/Vol] 0.6 mg/dL Normal 0.5-1.3 [facility] Comment on above: Performed By: #### 2 [id number] #### [facility] [address] [place] [address] Globulin (S) [Mass/Vol] 3.2 g/dL Normal 1.4-4.0 [facility] Comment on above: Performed By: #### 2 [id number] #### [facility] [address] [place] [address] Glucose [Mass/Vol] 103 mg/dL Normal 55-199 [facility] Comment on above: Performed By: #### 2 [id number] #### [facility] [address] [place] [address] Potassium [Moles/Vol] 3.8 mmol/L Normal 3.5-5.3 [facility] Comment on above: Performed By: #### 2 [id number] #### [facility] [address] [place] [address] Protein [Mass/Vol] 7.1 g/dL Normal 6.0-7.8 [facility] Comment on above: Performed By: #### 2 [id number] #### [facility] [address] [place] [address] Sodium [Moles/Vol] 136 mmol/L Normal 135-145 [facility] Comment on above: Performed By: #### 2 [id number] #### [facility] [address] [place] [address] Urea nitrogen [Mass/Vol] 10 mg/dL Normal 5-21 [facility] Comment on above: Performed By: #### 2 [id number] #### [facility] [address] [place] [address] Urea nitrogen/Creatinine [Mass ratio] 17 No Units Normal 10-20 [facility] Comment on above: Performed By: #### 2 [id number] #### [facility] [address] [place] [address] COAGULATIONOrdered By: Yenny Paz on 09-13-2024 aPTT Coag (PPP) [Time] 31.5 s Normal 25.1 - 36.5 second(s) [facility]ag Comment on above: Interpretive Data: Ashanti hawkins 15 days - 4 weeks 1 - 5 months 6 - 11 months 1 - 5 years 6 - 10 years 11 - 17 years PTT Mean: 35.4 (27.6-45.6) Mean: 33.5 (24.8-40.7) Mean: 32.4 (25.1-40.7) Mean: 31.6 (24.0-39.2) Mean: 31.6 (26.9-38.7) Mean: 31.0 (24.6-38.4) Pediatric Reference ranges were obtained from a study by Maury Dover et al. prepared from 1437 samples obtained at 7 different centers using the same coagulation reagent and instrumentation as [facility]. Currently there are no coagulation studies available worldwide for children to 14 days, and no normal ranges. Heparin therapeutic range (represented by Anti-Factor Xa activity of 0.2 - 0.4 U/mL) corresponds to PTT of 56.6 - 109.0 sec. INR Coag (PPP) [Relative time] 1.00 {INR} Invalid Interpretation Code [facility] Comment on above: Interpretive Data: I NR results are specifically intended to assess patients stabilized on long-term Anticoagulation therapy suggested INR s Less Intensive Anticoagulation 2.0 3.0 Conventional Range 3.0 4.5 PT Coag (PPP) [Time] 11.2 s Normal 9.4 - 1 2.5 second(s) [facility] Comment on above: Interpretive Data: 1 5 days - 4 weeks 1 - 5 months 6 -11 months 1-5 years 6-10 years 11 -17 years Mean: 11.2 (9.5-12.6) Mean: 11.0 (9.7-12.8) Mean: 11.0 (9.8-13.0) Mean: 11.3 (9.9-13.4) Mean: 11.7 (10.0-14.6) Mean: 11.8 (10.0 - 14.1) Pediatric Reference ranges were obtained from a study by Maury Dover et al. prepared from 1437 samples obtained at 7 different centers using the same coagulation reagent and instrumentation as [facility]. Currently there are no coagulation studies available worldwide for children to 14 days, and no normal ranges. CT Head or Brain w/o Contras ton 09-13-2024 CT Head or Brain w/o Contrast Exam Date/Time: 09/13/2024 14:18 EDT Reason for Exam: Neuro deficit, acute, stroke suspected;Stroke Report IMPRESSION: No acute intracranial process. Communicated with ER via wet read in PACS on 09/13/2024 @ 1420. HISTORY: Blurred vision. Rapid response stroke. TECHNIQUE: Serial axial images without IV contrast were obtained from the vertex to the foramen magnum, with sagittal and coronal reconstructions. All CT scans at this facility use dose modulation, iterative reconstruction, and/or weight based dosing when appropriate to reduce radiation dose to as low as reasonably achievable. COMPARISON: 02/17/2022. RESULT: Acute change: No evidence of an acute infarct or other acute parenchymal process. Hemorrhage: No evidence of acute intracranial hemorrhage. Mass Lesion / Mass Effect: There is no evidence of an intracranial mass or extraaxial fluid collection. No significant mass effect. Chronic change: None significant via CT. Parenchyma: There is no significant volume loss. Ventricles: The ventricles are within normal limits of size and configuration for age. Paranasal sinuses and skull base: Mild thickening ethmoid air cells. Mastoid air cells clear. The skull base is unremarkable. Soft tissues unremarkable. Ordering Provider: Onofre Pierre FINAL REPORT Dictated: 09/13/2024 2:21 pm Harshad Fortune MD. Signed (Electronic Signature): 09/13/2024 2:21 pm Signed by: Harshad Fortune MD Transcribed by: BRIAN Technologist: MICHAEL Jack Read 09/13/2024 02:20 pm EDT, Harshad Fortune MD. CT Brain: NO evidence of Acute Intracranial Process. Normal [facility] ED Clinical Summaryon 2023 ED Clinical Summary ED Clinical Summary [place] [id number] ED Clinical Summary Person Information Name: DIANE SAM [facility] Age: 49 Years : 1975 Sex: Female Language: Bulgarian PCP: NONE, XXXX Marital Status: Visit Id: Visit Reason: Potential stroke; Vision changes; Headache; Hypertension; HYPERTENSION Speciality: Acuity: 2 Enc Type: Observation Med Service: Medical Arrival: 09/13/2024 14:08:11 Discharge: LOS: 000 04:08 Checkin: 09/13/2024 14:08:11 Checkout: 09/13/2024 18:16:02 Dispo Type: Admitted as IP to this [facility] EVENTS: Event Name Event Status Request Date/Time Start Date/Time Complete Date/Time Arrive Complete 09/13/2024 14:08:11 09/13/2024 14:08:11 09/13/2024 14:08:11 Document Home Meds Request 09/13/2024 14:08:11 Triage Complete 09/13/2024 14:08:11 09/13/2024 14:20:52 09/13/2024 14:20:52 Bed Assign Complete 09/13/2024 14:08:11 09/13/2024 14:08:11 09/13/2024 14:08:11 Dr Exam Complete 09/13/2024 14:08:11 09/13/2024 14:11:31 09/13/2024 14:11:31 RN Exam Complete 09/13/2024 14:08:11 09/13/2024 14:35:34 09/13/2024 14:35:34 RR Stroke Request 09/13/2024 14:10:28 Registration Complete 09/13/2024 14:11:31 09/13/2024 14:53:10 09/13/2024 14:53:10 NPO Request 09/13/2024 14:12:24 Pending Labs Complete 09/13/2024 14:12:24 09/13/2024 16:22:01 Blood Collect Request 09/13/2024 14:12:24 Lab Complete 09/13/2024 14:12:24 09/13/2024 14:53:02 Patient Care Request 09/13/2024 14:12:24 CT Complete 09/13/2024 14:12:24 09/13/2024 14:12:48 09/13/2024 14:18:52 X-Ray Complete 09/13/2024 14:12:24 09/13/2024 14:17:41 09/13/2024 14:26:28 RT Request 09/13/2024 14:12:24 EKG Complete 09/13/2024 14:13:46 09/13/2024 14:31:41 Pending Labs Complete 09/13/2024 14:21:28 09/13/2024 14:21:28 09/13/2024 14:44:37 Lab Complete 09/13/2024 14:21:28 09/13/2024 14:21:28 09/13/2024 14:44:37 Pending Labs Complete 09/13/2024 14:25:46 09/13/2024 14:25:46 09/13/2024 14:25:46 Wet Read Complete 09/13/2024 14:26:28 09/13/2024 14:43:00 09/13/2024 14:43:00 Meds Admin Complete 09/13/2024 14:30:07 09/13/2024 14:38:55 Dr Exam Complete 09/13/2024 14:35:08 09/13/2024 14:35:08 09/13/2024 14:35:08 RR Stroke Request 09/13/2024 14:35:34 Meds Admin Complete 09/13/2024 14:44:32 09/13/2024 14:52:32 Reg Complete Request 09/13/2024 14:53:10 Reg Bed Request Complete 09/13/2024 14:53:10 09/13/2024 14:53:10 09/13/2024 14:53:10 Consult Request 09/13/2024 16:39:05 Hospitalist Consult Request 09/13/2024 16:39:06 Meds Admin Complete 09/13/2024 16:39:39 09/13/2024 16:54:01 Observation Request 09/13/2024 16:52:32 Patient Care Request 09/13/2024 16:52:34 Patient Care Request 09/13/2024 16:52:34 Patient Care Request 09/13/2024 16:52:35 Patient Care Request 09/13/2024 16:52:36 ADDRESS: [address] [place] [id number] [facility] DOC NOTES: MEDICAL INFORMATION: Prescriptions Given: Medications to Continue with No Changes Other Medications predniSONE (predniSONE 10 mg Tab) 1 Dose Separtor By Mouth As Directed. 6 tabs for 2 days,5 tabs for 2 days,4 tabs for 2 days,3 tabs for 2 days,2 tabs for 2 days,1 tab for 2 days. Refills: 0. PATIENT EDUCATION INFORMATION: Instructions: Follow up: DIAGNOSIS: Brain TIA; Headache Normal [facility] ED Note-Physicianon 09-13-20 ED Note-Physician ED Note-Physician Basic Information Time Seen: Onofre Pierre DO 09/13/2024 14:11 Chief Complaint pt recently diagnosed with HTN, has not started medications d/t no insurance. today at 1330 pt had sudden onset of headache and blurred vision. History of Present Illness 49 female presents emergency department with blurred vision and headache. Patient states last known well and symptom onset approximately 1330 today. She states she was at work when she developed some headache and also developed some blurred vision. She is never had this before. She does state that she has had a history of migraine headaches in the past but never anything like this. She did have recent diagnosis of hypertension she has not yet started on her medications. She denies any numbness or weakness to the upper or lower extremity she denies any changes to her speech. No prior treatments before coming in. She does have nausea in addition to her headache. No other aggravating or relieving factors no other associated symptoms no other prior treatments or complaints. Family: Reviewed and noncontributory Social: lives at home Review of systems negative unless otherwise specified in the HPI. Physical Exam Vitals & Measurements T: 37 ???C(Oral) HR: 84(Peripheral) RR: 18 BP: 151/74 SpO2: 98% HT: 165 cm WT: 127.8 kg BMI: 46.94 General: The patient appears well and in no apparent distress. Patient is resting comfortably on cart. Skin: Warm, dry, no pallor noted. Head: Normocephalic, atraumatic Neck: No JVD Eye: PERRLA, EOMI ENT: Moist mucus membranes Cardiovascular: Regular rate normal peripheral perfusion Respiratory: No respiratory distress no accessory muscle use no obvious audible wheezing Chest Wall: no deformity Musculoskeletal: normal ROM, no deformity, no swelling GI: Soft no obvious distention. No rebound or rigidity. No guarding. No tenderness. Neurological: A&O moves all extremities equal strength and symmetry stroke scale score 0 no dysarthria no ataxia no aphasia Psychiatric: Cooperative and appropriate Procedure Patient is not a candidate for tenecteplase given stroke scale score of 0 minor nondisabling symptoms Medical Decision Making Workup in the ER has been reviewed and noted. CT of the brain read by the radiologist as no acute pathology. Laboratory studies are unremarkable. Patient was treated with Toradol for her headache as well as Reglan and Benadryl as well. Headache has improved. The blurred vision has resolved. Patient estimates that the blurred vision lasted approximately 20 to 30 minutes. She does state that she had previous hospitalization for hypertension but is not currently taking any medicines for blood pressure. I had a long conversation with the patient about outpatient follow-up versus further workup here including MRI and the patient states that she was really fearful she was having a stroke today and therefore did request for admission I think this is reasonable. Case discussed with the hospitalist for admission. Assessment/Plan Brain TIA (G45.9: Transient cerebral ischemic attack, unspecified) Headache (R51.9: Headache, unspecified) Orders: diphenhydrAMINE, 12.5 mg = 0.25 mL, Injection, IV, Once, Stop date 09/13/24 14:44:00 EDT, STAT, Start date 09/13/24 14:44:00 EDT, 09/13/24 14:44:00 EDT ketorolac, 30 mg = 1 mL, Injection, IV, Once, Stop date 09/13/24 14:43:00 EDT, STAT, Start date 09/13/24 14:43:00 EDT, 09/13/24 14:43:00 EDT metoclopramide, 5 mg = 1 mL, Injection, IV Push, Once, Stop date 09/13/24 14:44:00 EDT, STAT, Start date 09/13/24 14:44:00 EDT, 09/13/24 14:44:00 EDT ondansetron, 4 mg = 2 mL, Injection, IV Push, Once, Stop date 09/13/24 14:29:00 EDT, STAT, Start date 09/13/24 14:29:00 EDT, 09/13/24 14:29:00 EDT BB Draw & Hold Cardiac Monitoring CBC w/ Auto Diff Communication Order Communication Order Comprehensive Metabolic Panel Continuous Pulse Oximetry CT Head or Brain w/o Contrast Dysphagia Screen eGFR Extra Ko Tube Extra SST Tube Neurological Assessment NPO Diet Oxygen Protocol PT & PTT Rapid Response Form Routine Capillary Glucose POC Stroke Quality Measures Troponin 0 Hr. UA with Cult Rflx XR Chest Single View Medications Administered Given diphenhydrAMINE 50 mg/mL Inj, 12.5 mg, IV ketorolac 30 mg/mL Inj 1 mL, 30 mg, IV metoclopramide 5 mg/mL Inj, 5 mg, IV Push Zofran 4 mg/2 mL Injection, 4 mg, IV Push Disposition Plan Discharge Prescription List Prescriptions No active prescription medications Follow-up No qualifying data available Problem List/Past Medical History Ongoing Smoker Historical No qualifying data Medications Inpatient No active inpatient medications Home predniSONE 10 mg Tab, 1 -, Oral, As Directed Allergies HYDROcodone (Vomiting) penicillins (Unknown) Social History Alcohol - Denies Alcohol Use, 09/13/2024 Substance Abuse - Low Risk, 09/13/2024 Tobacco - High Risk, 09/13/2024 Lab Results WBC: 16.1 (more content not included)... Normal [facility] Comment on above: Result Comment: Elec tronically Signed By: Onofre Pierre DO\.br\Date and Time Signed: 09/13/24 16:39 EDT ED Patient Education Noteon 09-13-2024 ED Patient Education Note ED Patient Education Note Normal [facility] ED Patient Summaryon 024 ED Patient Summary ED Patient Summary [place] [id number] Patient Discharge Instructions Person Information Name: ASHLEIGH SAMWILLIAM Toribio Age: 49 Years Arrival Date: 09/13/2024 14:08:11 Discharge Diagnosis: Brain TIA; Headache Primary Care Physician: NONE, XXXX Provider Information Primary Provider: Onofre Pierre DO Advanced Projection Technician:None The exam and treatment you received in the Emergency Department were for an urgent problem and are not intended as complete care. It is important that you follow up with a doctor, nurse practitioner, or physician???s printer floor covering assistant for ongoing care. If your symptoms become worse or you do not improve as expected and you are unable to reach your usual health care provider, you should return to the Emergency Department. We are available 24 hours a day. DIANE SAM has been given the following list of patient education materials, prescriptions and follow-up instructions: Follow-up Instructions: In the event that this physician does not participate in your insurance network, please consult with your insurance company to find a nearby participating provider. Patient Education Materials: A MESSAGE TO ALL PATIENTS REGARDING OPIOIDS PRESCRIPTION OPIOIDS: WHAT YOU NEED TO KNOW Prescription opioids can be used to help relieve [id number] pain and are often prescribed following a [...] as well, even when taken as directed: ??? Tolerance???meaning you might need to take more of the medication for the same pain relief ??? Physical dependence???meaning you have symptoms of withdrawal when a medication is stopped ??? Increased sensitivity to pain ??? Constipation ??? Nausea, vomiting, and dry mouth ??? Sleepiness and dizziness ??? Confusion ??? Depression ??? Low levels of testosterone that can result in lower sex drive, energy, and strength ??? Itching and sweating RISKS ARE GREATER WITH: ??? History of drug misuse, substance use disorder, or overdose ??? Mental health conditions (such as depression or anxiety) ??? Sleep apnea ??? Older age (65 years and older) ??? Avoid alcohol while taking prescription opioids. Also, unless specifically advised by your health care provider, medications to avoid include: ??? Benzodiazepines (such as Xanax or Valium) ??? Muscle relaxants (such as Soma or Flexeril) ??? Hypnotics (such as Ambien or Lunesta) ??? Other prescription opioids KNOW YOUR OPTIONS Talk to your health care provider about ways to manage your pain that don???t involve prescription opioids. Some of these options may actually work better and have fewer risks and side effects. Options may include: ??? Pain relievers such as acetaminophen, ibuprofen, and naproxen ??? Some medication that are also used for depression or seizures ??? Physical therapy and exercise ??? Cognitive behavioral therapy, a psychological, goal-directed approach, in which patients learn how to modify physical, behavioral, and emotional triggers of pain and stress. IF YOU ARE PRESCRIBED OPIOIDS FOR PAIN: ??? Never take opioids in greater amounts or more often than prescribed. ??? Follow up with your primary health care provider. o Work together to create a plan on how to manage your pain. o Talk about ways to help manage your pain that don???t involve prescription opioids. o Talk about any and all concerns and side effects. ??? Help prevent misuse and abuse o Never sell or share prescription opioids. o Never use another person???s prescription opioids. ??? Store prescription opioids in a secure place and out of reach of others (this may include visitors, children, friends, and family). ??? Safely dispose of unused prescription opioids: Find your community drug take-back program or your pharmacy mail-back program, or flush them down the toilet, following guidance from the Food and Drug Administration (www.fda.gov/Drugs/R esourcesForYou). ??? Visit www.cdc.gov/drugover dose to learn about the risks of opioids abuse and overdose. ??? If you believe you may be struggling with addiction, tell your health point of care specialist and ask for guidance or call [facility]S National Helpline at 9-822-937-XSIL. w Source: [place] Department of Health and Human Services/Center for Disease Control & Prevention Faroese (more content not included)... Normal [facility] HEMATOLOGYOrdered By: SYSTEM SYSTEM on 09-13-2024 Basophils/100 WBC (Bld) 1.1 % Normal 0.0 - 2.0 % Remisol Heme Basophils/Leukocytes Auto (Bld) [Pure # fraction] 0.2 E9/L Normal 0.0 - 0.2 E9/L Remisol Heme Eosinophils (Bld) [#/Vol] 0.2 E9/L Normal 0.0 - 0.5 E9/L Remisol Heme Eosinophils/100 WBC (Bld) 1.0 % Normal 0.0 - 8.0 % Remisol Heme Erythrocyte distribution width (RBC) [Ratio] 15.0 % High 10.9 - 14.2 % [facility] Hematocrit (Bld) [Volume fraction] 41.5 % Normal 34.0 - 46.0 % [facility] Hemoglobin (Bld) [Mass/Vol] 13.8 g/dL Normal 12.0 - 16.0 gm/dL Rem[facility]e Lymphocytes (Bld) [#/Vol] 2.8 E9/L Normal 1.0 - 4.0 E9/L [facility] Lymphocytes/100 WBC (Bld) 17.2 % Normal 14.0 - 50.0 % Remisol Heme MCH (RBC) [Entitic mass] 27.4 pg Normal 27.0 - 34.0 pg Remisol Heme MCHC (RBC) [Mass/Vol] 33.3 g/dL Normal 31.4 - 36.0 gm/dL Remisol Heme MCV (RBC) [Entitic vol] 82.4 fL Normal 80.0 - 100.0 fL [facility]e Monocytes (Bld) [#/Vol] 0.6 E9/L Normal 0.2 - 1.0 E9/L Rem[facility] Heme Monocytes/100 WBC (Bld) 4.0 % Normal 4.0 - 14.0 % Rem[facility] Neutrophils (Bld) [#/Vol] 12.3 E9/L High 2.0 - 7.5 E9/L Rem[facility] Neutrophils/100 WBC (Bld) 76.7 % High 36.0 - 75.0 % [facility] Platelet mean volume (Bld) [Entitic vol] 8.8 fL Normal 6.4 - 10.8 fL [facility] Platelets (Bld) [#/Vol] 304.0 E9/L Normal 150.0 - 500.0 E9/L Rem[facility] Heme RBC (Bld) [#/Vol] 5.0 E12/L Normal 4.3 - 5.9 E12/L [facility] WBC corrected for nucl RBC Auto (Bld) [#/Vol] 16.1 E9/L High 4.0 - 11.0 E9/L [facility] Comment on above: Result Comment: Deb pheral smear review performed. Interdisciplinary Note - Soc ial Workeron 09-13-2024 Interdisciplinary Note - Warp Yarn Sorter Interdisciplinary Note - Warp Yarn Sorter While completing quality rounding with this pt she expressed that she does not currently have a PCP, primary care list offered to the pt at this time. pt accepts, education on the primary care sheets and online scheduling portal provided at this time. Normal [facility] PT & PTTon 09-13-2024 aPTT Coag (PPP) [Time] 31.5 second(s) Normal 25.1-36.5 [facility] Comment on above: Result Comment: Para meter 15 days - 4 weeks 1 - 5 months 6 - 11 months 1 - 5 years 6 - 10 years 11 - 17 years PTT Mean: 35.4 (27.6-45.6) Mean: 33.5 (24.8-40.7) Mean: 32.4 (25.1-40.7) Mean: 31.6 (24.0-39.2) Mean: 31.6 (26.9-38.7) Mean: 31.0 (24.6-38.4) Pediatric Reference ranges were obtained from a study by Maury Dover et al. prepared from 1437 samples obtained at 7 different centers using the same coagulation reagent and instrumentation as [facility]. Currently there are no coagulation studies available worldwide for children to 14 days, and no normal ranges. Heparin therapeutic range (represented by Anti-Factor Xa activity of 0.2 - 0.4 U/mL) corresponds to PTT of 56.6 - 109.0 sec. Performed By: #### 1 [id number] #### [facility] [address] [place] [address] INR Coag (PPP) [Relative time] 1.00 {INR} Invalid Interpretation Code [facility] Comment on above: Result Comment: INR results are specifically intended to assess patients stabilized on long-term Anticoagulation therapy suggested INR???s ???Less Intensive Anticoagulation??? 2.0 ??? 3.0 Conventional Range 3.0 ??? 4.5 Performed By: #### 1 [id number] #### [facility] [address] [place] [address] PT Coag (PPP) [Time] 11.2 second(s) Normal 9.4-12.5 [facility] Comment on above: Result Comment: 15 d ays - 4 weeks 1 - 5 months 6 -11 months 1- 5 years 6-10 years 11 -17 years Mean: 11.2 (9.5-12.6) Mean: 11.0 (9.7-12.8) Mean: 11.0 (9.8-13.0) Mean: 11.3 (9.9-13.4) Mean: 11.7 (10.0-14.6) Mean: 11.8 (10.0 - 14.1) Pediatric Reference ranges were obtained from a study by Maury Dover et al. prepared from 1437 samples obtained at 7 different centers using the same coagulation reagent and instrumentation as [facility]. Currently there are no coagulation studies available worldwide for children to 14 days, and no normal ranges. Performed By: #### 1 [id number] #### [facility] [address] [place] [address] Pre-Arrival Noteon Pre-Arrival Note Pre-Arrival Note Pre-Arrival Summary Name: , SAGAR Current Date: 09/13/2024 14:08:40 EDT Gender: Female Date of : Age: 49 Pre-Arrival Type: EMS ETA: 09/13/2024 14:31:00 EDT Primary Care Physician: Presenting Problem: HTN Pre-Arrival User: Kandice Bond RN Referring Source: Location: [place] Completion Date/Time: 09/13/2024 14:01:00 [facility] Emergency Department Pre-Hospital Report Form Vital Signs: Pre-Hospital Report: Treatment in Route: Response to Treatment: Misc. Issues: Normal [facility] Troponin 0 Hr.on 09-13-2024 Troponin HS 5.10 pg/mL Low 10.10-27.10 [facility] Comment on above: Result Comment: The 95% CI (Confidence Interval) PPV (Positive Predictive Value) for myocardial infarction in females is 38 pg/mL, in males 51 pg/mL. The results should be used in conjunction with clinical conditions of myocardial infarction. (Access High Sensitivity Troponin I Instructions For Use, [employer] [place], June 2018) Performed By: #### 1 [id number] #### [facility] [address] [place] [address] UA with Cult Rflxon 09-13-20 24 Bilirubin Ql (U) Negative Normal Negative [facility] Comment on above: Performed By: #### 4 [id number] #### [facility] [address] [place] [address] Clarity (U) Clear Normal Clear [facility] Comment on above: Performed By: #### 4 [id number] #### [facility] [address] [place] [address] Color (U) Yellow Normal Yellow [facility] Comment on above: Result Comment: Micr oscopic readings are only performed on those samples that meet specific criteria set forth by [facility] [facility] Performed By: #### 4 [id number] #### [facility] [address] [place] [address] Glucose Ql (U) Negative Normal Negative [facility] Comment on above: Performed By: #### 4 [id number] #### [facility] [address] [place] [address] Hemoglobin Auto test strip (U) [Mass/Vol] Negative Normal Negative [facility] Comment on above: Performed By: #### 4 [id number] #### [facility] [address] [place] [address] Ketones Auto test strip Ql (U) Trace Abnormal Negative [facility] Comment on above: Performed By: #### 4 [id number] #### [facility] [address] [place] [address] Leukocyte esterase Auto test strip Ql (U) Negative Normal Negative [facility] Comment on above: Performed By: #### 4 [id number] #### [facility] [address] [place] [address] Nitrite Auto test strip Ql (U) Negative Normal Negative [facility] Comment on above: Performed By: #### 4 [id number] #### [facility] [address] [place] [address] pH (U) 5.5 [pH] Invalid Interpretation Code 5.0-9.0 [facility] Comment on above: Performed By: #### 4 [id number] #### [facility] [address] [place] [address] Protein Ql (U) Trace Abnormal Negative [facility] Comment on above: Performed By: #### 4 [id number] #### [facility] [address] [place] [address] Specific gravity (U) [Rel density] 1.021 Invalid Interpretation Code 1.005-1.030 [facility] Comment on above: Performed By: #### 4 [id number] #### [facility] [address] [place] [address] Urobilinogen (U) [Mass/Vol] Negative Normal Negative [facility] Comment on above: Performed By: #### 4 [id number] #### [facility] [address] [place] [address] Type of Urine collection method Clean Catch Normal [facility] Comment on above: Performed By: #### 4 [id number] #### [facility] [address] [place] [address] URINALYSISOrdered By: SYSTEM SYSTEM on 09-13-2024 Bilirubin Ql (U) Negative Normal Negativemg/ d L [facility]A Auto SS Clarity (U) Clear (09/13/24 4:14 PM) Normal Clear [facility] UA Auto SS Color (U) Yellow 1 (09/13/24 4:14 PM) Normal Yellow [facility] UA Auto SS Comment on above: Interpretive Data: M icroscopic readings are only performed on those samples that meet specific criteria set forth by [facility]. Glucose Ql (U) Negative Normal Negativemg/d L [facility] UA Auto SS Hemoglobin Auto test strip (U) [Mass/Vol] Negative Normal Negativemg/d L [facility] UA Auto SS Ketones Auto test strip Ql (U) Trace mg/dL Invalid Interpretation Code Negativemg/d L [facility] UA Auto SS Leukocyte esterase Auto test strip Ql (U) Negative Normal NegativeLeu/ uL [facility] UA Auto SS Nitrite Auto test strip Ql (U) Negative Normal Negativemg/d L [facility] UA Auto SS pH (U) 5.5 *NA* (09/13/24 4:14 PM) Invalid Interpretation Code 5.0 - 9.0 [facility] UA Auto SS Protein Ql (U) Trace mg/dL Invalid Interpretation Code Negativemg/d L [facility] UA Auto SS Specific gravity (U) [Rel density] 1.021 *NA* (09/13/24 4:14 PM) Invalid Interpretation Code 1.005 - 1.030 [facility] UA Auto SS Urobilinogen (U) [Mass/Vol] Negative Normal Negativemg/d L [facility] UA Auto SS URINALYSISOrdered By: Onofre torres on 09-13-2024 UA Spec Desc Clean Catch (09/13/24 4:14 PM) Normal [facility] UA Auto SS XR Chest Single Viewon 09-13 XR Chest Single View Exam Date/Time: 09/13/2024 14:26 EDT Reason for Exam: Chest pain Report IMPRESSION: NO ACUTE CARDIOPULMONARY DISEASE. CLINICAL HISTORY: Chest pain COMPARISON: 02/17/2022 FINDINGS: Osseous structures are intact. Cardiopericardial silhouette is normal. Pulmonary vasculature is normal. Lungs are clear. Ordering Provider: Onofre Pierre FINAL REPORT Dictated: 09/13/2024 2:42 pm Vinny Brandt MD Signed (Electronic Signature): 09/13/2024 2:42 pm Signed by: Vinny Brandt MD Transcribed by: BRIAN Technologist: HOPE, Technical Comments Radiation Dose: Ka,r in mGy = na DAP = na Normal [facility] eGFRon 09-13-2024 eGFR 110 mL/min/1.73 m2 Normal >=59 [facility] Comment on above: Performed By: #### 1 [id number] #### [facility] [address] [place] [address] Cov[facility]-19 [facility] SARS-CoV-2 (COVID-19) RNA CARLITO+probe Ql (Unsp spec) Not detected Normal NOT DETECTED [facility] Comment on above: Result Comment: When [...] for this test is supported by the [place] of Health and Human Service's declaration that [...] longer be used). Performed By: #### C VDTBH #### [facility] [address] [address] [address] Francine Ruiz XR CHEST 1 Von [...] No acute cardiopulmonary process. Electronically authenticated by: BEATRICE SANTOS Date: 2022-07-26 11:40 Normal [facility] POINT OF CARE GLUCOSEon 03- Glucose [Mass/Vol] 115 mg/dL Critically high 74-106 [facility] Comment on above: Performed By: #### P OCGLUC #### [facility] [address] [place], [place] [id number] Dr. Farncine Ruiz COVID Quick Testingon 2020 Result Negative [employer] Other Quick Strepon 10-14-2021 S. pyogenes Org specific cx Ql (Throat) Positive [employer] Other Quick Strep [employer] Other Coding Summaryon 06-08-2020 Coding Summary CODING DATE: 06/08/2020 [facility] STATUS: Home PAYOR: [employer] ADMIT [...] Nogueira Date Saved: 06/08/2020 03:12 pm Normal [facility] - Immunology/Serology Re sults 05-29-2020 Lab - Immunology/Serology Results [id number] [facility] 05-29-2020 Provider Orders [id number] [facility] 05-26-2020 Provider Orders [id number] [facility] SARS-CoV-2 (COVID-19) PCRon 05-26-2020 COVID-19 PCR Not Detected Normal Not Detected [facility] Comment on above: Result Comment: Perf ormed at [facility] [address] [place], [place] [phone] Performed By: #### 6 [id number] #### [facility] (DEFAULT) [address] [place] [address] Vital Signs Date Time Vital Sign Value Performing Clinician Facility 11-29-2024 16:14-0500 Body height 162.6 cm [employer] Work Phone: [facility] 11-29-2024 16:14-0500 Body mass index (BMI) [Ratio] 48.34 kg/m2 [employer] Work Phone: [facility] 11-29-2024 16:14-0500 Body weight 127.73 kg [employer] Work Phone: [facility] 11-29-2024 16:14-0500 Diastolic blood pressure 82 mm[Hg] [employer] Phone: [facility] 01-13-2025 16:14-0500 Heart rate 80 /min Husam Robert DO Work Phone: [facility] 11-29-2024 16:14-0500 Systolic blood pressure 118 mm[Hg] Husam Robert DO Work Phone: [facility] 09-22-2024 11:30-0500 Body height 162.6 cm Husam Robert DO Work Phone: [facility] 09-22-2024 11:30-0500 Body mass index (BMI) [Ratio] 47.55 kg/m2 Husam Robert DO Work Phone: [facility] 09-22-2024 11:30-0500 Body weight 125.65 kg Husam Robert DO Work Phone: [facility] 09-22-2024 11:30-0500 Diastolic blood pressure 93 mm[Hg] Husam Robert DO Work Phone: [facility] 09-22-2024 11:30-0500 Heart rate 86 /min Husam Robert DO Work Phone: [facility] 09-22-2024 11:30-0500 Systolic blood pressure 148 mm[Hg] Husam Robert DO Work Phone: [facility] 09-14-2024 11:29-0400 Hourly Rounding [facility] 09-14-2024 11:29-0400 Promise to Return [facility] 09-14-2024 10:53-0400 Hourly Rounding [facility] 09-14-2024 10:53-0400 Promise to Return [facility] 09-14-2024 10:42-0400 Heart rate 76 /min [facility] 09-14-2024 10:42-0400 SaO2% (BldA) [Mass fraction] 96 % [facility] 09-14-2024 10:41-0400 Diastolic blood pressure 95 mm[Hg] [facility] 09-14-2024 10:41-0400 Mean blood pressure 116 mm[Hg] [facility] 09-14-2024 10:41-0400 Systolic blood pressure 159 mm[Hg] [facility] 09-14-2024 10:40-0400 Body temperature 98.6 [degF] [facility] 09-14-2024 09:45-0400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 that has an arm cuff. Do not choose a monitor that measures your blood pressure from your wrist or finger. Choose a cuff that wraps snugly, not too tight or too loose, around your upper arm. You should be able to fit only one finger between your arm and the cuff. You can buy a blood pressure monitor at most [employer] or online. Where to find more information [place] [employer]: www.heart.org Contact a health care provider if: Your blood pressure is consistently high. Your blood pressure is suddenly low. Get help right away if: Your systolic blood pressure is higher than 180. Your diastolic blood pressure is higher than 120. These symptoms may be an emergency. Get help right away. Call 911. Do not wait to see if the symptoms will go away. Do not drive yourself to the hospital. Summary Blood pressure is a measurement of how strongly your blood is pressing against the linda of your arteries. A blood pressure reading consists of a higher number over a lower number. Ideally, your blood pressure should be below 120/80. Check your blood pressure at the same time every day. Avoid caffeine, alcohol, smoking, and exercise for 30 minutes prior to checking your blood pressure. These agents can affect the accuracy of the blood pressure reading. This information is not intended to replace advice given to you by your health care provider. Make sure you discuss any questions you have with your health care provider. Document Revised: 07/18/2022 Document Reviewed: 07/18/2022 [employer] Patient Education 2023 [employer] 09/14/2024 11:22:05 Migraine Headache Migraine Headache A migraine headache is an intense pulsing or throbbing pain on one or both sides of the head. Migraine headaches may also cause other symptoms, such as nausea, vomiting, and sensitivity to light and noise. A migraine headache can last from 4 hours to 3 days. Talk with your health care provider about what things may bring on (trigger) your migraine headaches. What are the causes? The exact cause is not known. However, a migraine may be caused when nerves in the brain get irritated and release chemicals that cause blood vessels to become inflamed. This inflammation causes pain. Migraines may be triggered or caused by: Smoking. Medicines, such as: ?Nitroglycerin, which is used to treat chest pain. ? control pills. ?Estrogen. ?Certain blood pressure medicines. Foods or drinks that contain nitrates, glutamate, aspartame, MSG, or tyramine. Certain foods or drinks, such as aged cheeses, chocolate, alcohol, or caffeine. Doing physical activity that is very hard. Other triggers may include: Menstruation. . Hunger. Stress. Getting too much or too little sleep. Weather changes. Tiredness (fatigue). What increases the risk? The following factors may make you more likely to have migraine headaches: Being between the ages of 25-55 years old. Being female. Having a family history of migraine headaches. Being . Having a mental health condition, such as depression or anxiety. Being obese. What are the signs or symptoms? The main symptom of this condition is pulsing or throbbing pain. This pain may: Happen in any area of the head, such as on one or both sides. Make it hard to do daily activities. Get worse with physical activity. Get worse around bright lights, loud noises, or smells. Other symptoms may include: Nausea. Vomiting. Dizziness. Before a migraine headache starts, you may get warning signs (an aura). An aura may include: Seeing flashing lights or having blind spots. Seeing bright spots, halos, or zigzag lines. Having tunnel vision or blurred vision. Having numbness or a tingling feeling. Having trouble talking. Having muscle weakness. After a migraine ends, you may have symptoms. These may include: Feeling tired. Trouble concentrating. How is this diagnosed? A migraine headache can be diagnosed based on: Your symptoms. A physical exam. Tests, such as: ?A CT scan or an MRI of the head. These tests can help rule out other causes of headaches. ?Taking fluid from the spine (lumbar puncture) to examine it (cerebrospinal fluid analysis, or CSF analysis). How is this treated? This condition may be treated with medicines that: Relieve pain and nausea. Prevent migraines. Treatment may also include: Acupuncture. Lifestyle changes like avoiding foods that trigger migraine headaches. Learning ways to control your body (biofeedback). Talk therapy to help you know and deal with negative thoughts (cognitive behavioral therapy). Follow these instructions at home: Medicines Take kckf-ryc-cjmjdjj and prescription medicines only as told by your provider. Ask your provider if the medicine prescribed to you: ?Requires you to avoid driving or using machinery. ?Can cause constipation. You may need to take these actions to prevent or treat constipation: ?Drink enough fluid to keep your pee (urine) pale yellow. ?Take poey-raz-wzjclrp or prescription medicines. ?Eat foods that are high in fiber, such as beans, whole grains, and fresh fruits and vegetables. ?Limit foods that are high in fat and processed sugars, such as fried or sweet foods. Lifestyle Do not drink alcohol. Do not use any products that contain nicotine or tobacco. These products include cigarettes, chewing tobacco, and vaping devices, such as e-cigarettes. If you need help quitting, ask your provider. Get 7 9 hours of sleep each night, or the amount recommended by your provider. Find ways to manage stress, such as meditation, deep breathing, or yoga. Try to exercise regularly. This can help lessen how bad and how often your migraines occur. General instructions Keep a journal to find out what triggers your migraines, so you can avoid those things. For example, write down: ?What you eat and drink. ?How much sleep you get. ?Any change to your diet or medicines. If you have a migraine headache: ?Avoid things that make your symptoms worse, such as bright lights. ?Lie down in a dark, quiet room. ?Do not drive or use machinery. ?Ask your provider what activities are safe for you while you have symptoms. Keep all follow-up visits. Your provider will monitor your symptoms and recommend any further treatment. Where to find more information Coalition for Headache and Migraine Patients (CHAMP): headachemigraine.org [place] [employer]: americanmigrainefoundation.org National Headache Foundation: headaches.org Contact a health care provider if: You have symptoms that are different or worse than your usual migraine headache symptoms. You have more than 15 days of headaches in one month. Get help right away if: Your migraine headache becomes severe or lasts more than 72 hours. You have a fever or stiff neck. You have vision loss. Your muscles feel weak or like you cannot control them. You lose your balance often or have trouble walking. You faint. You have a seizure. This information is not intended to replace advice given to you by your health care provider. Make sure you discuss any questions you have with your health care provider. Document Revised: 06/30/2023 Document Reviewed: 06/30/2023 [employer] Patient Education 2023 [employer] Follow Up Care 09/13/2024 14:08:39 With:XXXX NONE Address: [place] When: Unknown With:Beatrice Hogue MD, NEU Address: [address] [place], [place] [id number] [facility] (1) When:10/11/2024 09:00:00 Comments:Will be seeing Cheryl HERR at this appointment. [facility] 10-29-2024 [email or web address] Learning Participants Patient Mony Understands Education Yes 2houses Education Video Statins: Should You Take Them to Lower Your Risk?[facility] 09-14-2024 NoteDischarge Summary Admission and Discharge Information Admitting Physician - Arturo Cunningham III, DO Consulting Physician - Beatrice Hogue MD Admitting Diagnoses: 1. Transient cerebral ischemic attack, unspecified, 09/14/2024 Discharge Order Date Discharge Patient - Ordered -- 09/14/24 11:08:00 EDT Discharge Diagnoses 1. Brain TIA, Transient cerebral ischemic attack, unspecified 2. Headache, 09/13/2024 3. Tobacco dependency, 09/13/2024 4. Hypertension, 09/13/2024 5. Morbid obesity, 09/13/2024 Headache, 09/13/2024 Hypertension, 09/13/2024 Potential stroke, 09/13/2024 Vision changes, 09/13/2024 Hospital Course Patient is a 49-year-old female smoker with past medical history of morbid obesity, migraine, hypertension, HLD and recent bacterial tonsillitis requiring admission to [facility] within the past month,admitted to [facility] 09/13/24 with vision changes, headache, and concern for TIA vs Migraine. In the ER, patient was hemodynamically stable with some moderate hypertension with systolic blood pressure in the mid 140s. EKG showed normal sinus rhythm. CT of brain showed no acute abnormality. On admission, neurology was consulted and she was given a migraine cocktail medications in the ER which significantly improved her headache symptoms. Her vision changes that she had experienced while at work prior to presentation had completely resolved at the time of my exam on admission. The patient underwent an MRI of brain which showed no evidence of acute/recent cerebral infarction and nonspecific white matter findings. CTA of head and neck showed a short segment of mild stenosis at the origin of the left internal carotid artery, but otherwise the neck arteries bilaterally were unremarkable. No significant stenosis of intracranial arteries. Neurology was not concerned for stroke and attributed her symptoms to migraine. Recommended neurology follow-up in 2 to 4 weeks and consideration of an outpatient migraine preventative medication being started at that time. Patient has a mild hyperlip idemia on testing with a overall cholesterol of 198, triglycerides 170, HDL of 50. Her 10-year ASCVD risk score was 7.7% and she had some persistent hypertension throughout her stay. On discharge, she was given a prescription for 2 months of atorvastatin 40 mg p.o. nightly and losartan 50 mg p.o. daily. She was also instructed to keep a blood pressure log and establish with a primary care physician. She should follow-up with neuro in 2 to 4 weeks and was cleared for discharge by neurology. She was medically stable for discharge on 09/14/2024. She was given a list of primary care physicians locally to follow-up with. Of note, she stated that she is very concerned for sleep apnea. I instructed her that she should be able to get a sleep study when she establishes with a primary care physician and she voiced agreement. Services Consulted Consult to Neurology - Ordered -- 09/13/24 19:11:00 EDT, vision changes secondary to TIA vs migraine, Consult and Co-manage Consult to [employer] [facility] - Ordered -- 09/13/24 18:34:31 EDT Physical Exam Vitals & Measurements T: 37 ???C(Axillary) TMIN: 36.6 ???C(Oral) TMAX: 37 ???C(Oral) HR: 76(Monitored) RR: 19 BP: 159/95 SpO2: 96% HT: 162.56 cm WT: 126.5 kg ENMT:oral mucosa moist Cardiovascular: regular rate and rhythm, normal peripheral perfusion Respiratory: Lungs CTA, respirations non labored Extremities: no deformity, no trauma Neurological: oriented x 4, LOC appropriate for age, CN II-XII intact, motor strength equal & normal bilaterally, sensation equal & normal bilaterally, speech normal Tests Performed Brain MRI w/o Contrast CT Head or Brain w/o Contrast CTA Head CTA Neck XR Chest Single View Discharge Plan Discharge Disposition Discharge To, Anticipated II - Home with responsible caregiver Discharge Diet Discharge Diet(s): Regular (09/14/24 11:19:00) Discharge Medication List Prescriptions atorvastatin 40 mg Tab, 40 mg= 1 tab(s), Oral, Bedtime losartan 50 mg Tab, 50 mg= 1 tab(s), Oral, Daily Home acetaminophen 325 mg Tab, 325 mg= 1 tab(s), Oral, q4hr, PRN Follow-up With When Contact Information Mykel MARQUES, LULU Lomeli Within 2 to [address] [place] [id number] [facility] (1) Additional Instructions: XXXX NONE [place] Additional Instructions: Given list of local primary care doctors, we recommend follow up as soon as possible Patient Education Form - Blood Pressure Record Sheet How to Take Your Blood Pressure Migraine Headache Attestation I spent 45 minutes on care including examination of patient, discussion of clear plan with patient,her , and neurology as well as ordering, chart review, documentationProm[facility] HospitalComment on above:Result Comment: Electronically Signed By: Arturo Cunningham III, DO.br\Date and Time Signed: 09/14/24 11:29 [id number] NoteConsultation Note Chief Complaint blurry vision, headache, blue fingers and HTN, felt weak Reason for Consultation vision changes secondary to TIA vs Migraine History of Present Illness 49-year-old woman. 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 At work she started to develop some vague visual symptoms, which she describes as feeling like she was looking through water with her left eye. Those progressed and worsened a little bit. She thought something could be wrong with her glasses so she took her glasses off to clean them and when she looked down in her fingers she thought theyappeared purple. She got shaky and nauseated and said she felt lightheaded. A coworker walked her to the blood pressure kiosk machine and she thinks her blood pressure was 186/147 and they got concerned and called paramedics. She says in the ambulance she started to get a bitemporal throbbing andpressure headache. She was again nauseated with that and when she got here. On the way to the hospital her visual symptoms disappeared and she was just left with headache. She said the headache hung around until late at night and then resolved. At the time of my encounter she feels she is at her baseline. No headache. No visual symptoms. It sounds like she has history of occasional headaches thatfelt somewhat similar to the headache she experienced yesterday, though less intense. And she has had 1 other episode in which she had some tunnel vision visual symptoms that preceded a headache but that was long ago. Review of Systems GEN: No fevers or chills. CV/PULM: No chest pain. No shortness of breath. No palpitations. NEURO: Yes headaches. Yes changes of vision. No double vision. No dysphagia. No speech changes. No focal weakness. No sensory loss. Physical Exam Vitals & Measurements T: 36.6 ???C(Oral) TMIN: 36.6 ???C(Oral) TMAX: 37 ???C(Oral) HR: 77(Peripheral) RR: 16 BP: 128/80 SpO2: 97% HT: 162.56 cm WT: 126.5 kg GEN: General appearance normal. Well-kempt. No distress. No visualized deformities or trauma. CARDIO/VASC: Limbs without significant edema and appear well-perfused. PULM: Normal work of breathing. SKIN: Visualized skin is intact and without lesions aside from age-related findings. MS: Affect is normal. Patient is alert and generally oriented. Normal attention. LANG: Speech is fluent and non-dysarthric. EYES: Pupils equal/reactive/consensual. Ocular motility full. No pathologic nystagmus. CN: Facial sensation normal. Hearing acuity normal. Face without droop and with normal motor function. MOTOR: Muscle bulk normal. Muscle tone normal. No focal weakness. No tremors. SENSORY: Light touch normal. CEREBELLAR: No limb ataxia. Date/Time:09/14/2024 @0730 Level of Consciousness: Alert = 0 Current month and age: Answers both correctly = 0 Open and close eyes/manager sales and marketing release hand: Obeys both correctly = 0 Best gaze: Normal = 0 Visual field testing: No visual field loss = 0 Facial paresis: Normal symmetric movement = 0 Motor function left arm: Normal = 0 Motor function right arm: Normal = 0 Motor function left leg: Normal = 0 Motor function right leg: Normal = 0 Limb ataxia: No ataxia = 0 Sensory: Normal = 0 Best language: No aphasia = 0 Dysarthria: Normal articulation = 0 Extinction and inattention: Normal = 0 Total Score (severe deficit >22): 0 Notes: Assessment/Plan ASSESSMENT: Suspected migraine with visual aura. Do not suspect cerebrovascular syndrome; hypertension and smoking would be her biggest risk factors for such. Angiography of her head and neck looks generally okay. MRI of her brain is without any acute findings including ischemia. Mention of one tiny benign-appearing white matter change which could be nothing, could be related to her migraine history, or could be related to her smoking history. She can have a tendency to have headaches at time, they are generally mild. She is probably borderline for consideration for migraine preventative medication. She has only had one other visual aura in her life from the sounds of it. PLAN: 1. Outpatient neurology follow-up, with consideration for migraine preventative medication. 2. Does not need the remainder of the stroke workup. 3. Aspirin and a statin medication had been started. These are likely not indicated, but lipids arepending. 4. No other inpatient recommendations at this time. 1. Brain TIA (G45.9: Transient cerebral ischemic attack, unspecified) 2. Headache (R51.9: Headache, unspecified) 3. Tobacco dependency (F17.200: Nicotine dependence, unspecified, uncomplicated) 4. Hypertension (I10: Essential (primary) hypertension) 5. Morbid obesity (E66.01: Morbid (severe) obesity due to excess calories) Problem List/Past Medical History Ongoing Smoker Historical No qualifying data Medications Inpatient acetaminophen 325 mg Tab, 650 mg= 2 tab(s), Oral, q6hr, PRN aspirin 81 mg Oral EC Tab, 81 mg= 1 tab(s), Oral, Daily atorvastatin 40 mg Tab, 40 mg= 1 ta (more content not included)...[facility]:Result Comment: Electronically Signed By: Elvira Zepeda RN\.br\Date and Time Signed: 09/14/24 07:19 EDT\.br\Electronically Co-Signed By: Artemio Williamson DO\.br\Date and Time Co- Signed: 09/14/24 09:57 EDT\.br\Electronically Co-Signed By: Elvira Zepeda RN [id number] NoteConsultation Note Chief Complaint blurry vision, headache, blue fingers and HTN, felt weak Reason for Consultation vision changes secondary to TIA vs Migraine History of Present Illness 49-year-old woman. 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 At work she started to develop some vague visual symptoms, which she describes as feeling like she was looking through water with her left eye. Those progressed and worsened a little bit. She thought something could be wrong with her glasses so she took her glasses off to clean them and when she looked down in her fingers she thought theyappeared purple. She got shaky and nauseated and said she felt lightheaded. A coworker walked her to the blood pressure kiosk machine and she thinks her blood pressure was 186/147 and they got concerned and called paramedics. She says in the ambulance she started to get a bitemporal throbbing andpressure headache. She was again nauseated with that and when she got here. On the way to the hospital her visual symptoms disappeared and she was just left with headache. She said the headache hung around until late at night and then resolved. At the time of my encounter she feels she is at her baseline. No headache. No visual symptoms. It sounds like she has history of occasional headaches thatfelt somewhat similar to the headache she experienced yesterday, though less intense. And she has had 1 other episode in which she had some tunnel vision visual symptoms that preceded a headache but that was long ago. Review of Systems GEN: No fevers or chills. CV/PULM: No chest pain. No shortness of breath. No palpitations. NEURO: Yes headaches. Yes changes of vision. No double vision. No dysphagia. No speech changes. No focal weakness. No sensory loss. Physical Exam Vitals & Measurements T: 36.6 ???C(Oral) TMIN: 36.6 ???C(Oral) TMAX: 37 ???C(Oral) HR: 77(Peripheral) RR: 16 BP: 128/80 SpO2: 97% HT: 162.56 cm WT: 126.5 kg GEN: General appearance normal. Well-kempt. No distress. No visualized deformities or trauma. CARDIO/VASC: Limbs without significant edema and appear well-perfused. PULM: Normal work of breathing. SKIN: Visualized skin is intact and without lesions aside from age-related findings. MS: Affect is normal. Patient is alert and generally oriented. Normal attention. LANG: Speech is fluent and non-dysarthric. EYES: Pupils equal/reactive/consensual. Ocular motility full. No pathologic nystagmus. CN: Facial sensation normal. Hearing acuity normal. Face without droop and with normal motor function. MOTOR: Muscle bulk normal. Muscle tone normal. No focal weakness. No tremors. SENSORY: Light touch normal. CEREBELLAR: No limb ataxia. Date/Time:09/14/2024 @0730 Level of Consciousness: Alert = 0 Current month and age: Answers both correctly = 0 Open and close eyes/manager sales and marketing release hand: Obeys both correctly = 0 Best gaze: Normal = 0 Visual field testing: No visual field loss = 0 Facial paresis: Normal symmetric movement = 0 Motor function left arm: Normal = 0 Motor function right arm: Normal = 0 Motor function left leg: Normal = 0 Motor function right leg: Normal = 0 Limb ataxia: No ataxia = 0 Sensory: Normal = 0 Best language: No aphasia = 0 Dysarthria: Normal articulation = 0 Extinction and inattention: Normal = 0 Total Score (severe deficit >22): 0 Notes: Assessment/Plan ASSESSMENT: Suspected migraine with visual aura. Do not suspect cerebrovascular syndrome; hypertension and smoking would be her biggest risk factors for such. Angiography of her head and neck looks generally okay. MRI of her brain is without any acute findings including ischemia. Mention of one tiny benign-appearing white matter change which could be nothing, could be related to her migraine history, or could be related to her smoking history. She can have a tendency to have headaches at time, they are generally mild. She is probably borderline for consideration for migraine preventative medication. She has only had one other visual aura in her life from the sounds of it. PLAN: 1. Outpatient neurology follow-up, with consideration for migraine preventative medication. 2. Does not need the remainder of the stroke workup. 3. Aspirin and a statin medication had been started. These are likely not indicated, but lipids arepending. 4. No other inpatient recommendations at this time. 1. Brain TIA (G45.9: Transient cerebral ischemic attack, unspecified) 2. Headache (R51.9: Headache, unspecified) 3. Tobacco dependency (F17.200: Nicotine dependence, unspecified, uncomplicated) 4. Hypertension (I10: Essential (primary) hypertension) 5. Morbid obesity (E66.01: Morbid (severe) obesity due to excess calories) Problem List/Past Medical History Ongoing Smoker Historical No qualifying data Medications Inpatient acetaminophen 325 mg Tab, 650 mg= 2 tab(s), Oral, q6hr, PRN aspirin 81 mg Oral EC Tab, 81 mg= 1 tab(s), Oral, Daily atorvastatin 40 mg Tab, 40 mg= 1 ta (more content not included)...[facility]Comment on above:Result Comment: Electronically Signed By: Elvira Zepeda RN\.br\Date and Time Signed: 09/14/24 07:19 EDT\.br\Electronically Co-Signed By: Artemio Williamson DO\.br\Date and Time Co- Signed: 09/14/24 09:57 [id number] NoteGetWell Understands Education Yes GetWell Education Video What Is a Stroke? GetWell Learning Participants [facility]10-29-2024 NoteGetWell Learning Participants Patient GetWell Understands Education Yes GetWell Education Video Avoiding Infections in the [facility]10-29-2024 Note GetWell Education Video After a Stroke: Taking an Antiplatelet GetWell Learning Participants Patient GetWell Understands Education [facility]10-28-2024 NoteHistory and Physical Chief Complaint blurry vision, headache, blue fingers and HTN, felt weak History of Present Illness Patient is a 49-year-old female smoker with past medical history of morbid obesity, recently diagnosed hypertension, and recent bacterial tonsillitis requiring admission to [facility] within the past month who presents with vision changes and strokelike symptoms that presented at work there were transient nature. 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 She also endorsed a headache. She stated that she checked her blood pressure at the grocery store's pharmacy and it was 186/1 40s diastolic. She states that she has a history of a migraine that occu rred once many years ago, in which she had tunnel vision. She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
[2024-12-04 22:12] VITALS: BP 150/88; PULSE 85; TEMP 36.8; O2SAT 97; BMI 47.5
--- NOTE | 2024-12-04 22:23 | XR_ITS ---
The [address] [address] Patient Name: LUI SAM MRN: [id number] date: 1975 Sex: F Assigned Patient Location: ER Current Patient Location: ED.MAIN Accession/Order Number: [id number] Exam Date: 12/04/2024 22:30 Report Date: 12/04/2024 23:22 At the request of: RACIEL PEREZ Procedure: XR elbow RT min 3V PROCEDURE: XR elbow RT min 3V HISTORY: fall, elbow injury and pain COMPARISON: None. FINDINGS: BONES:No fracture, acute abnormality, or significant arthropathy. SOFT TISSUES:No visible soft tissue swelling. EFFUSION:None visible. OTHER: Negative. XR/XR elbow RT min 3V IMPRESSION: 1. No acute bone abnormality. Electronically authenticated by: BEATRICE SANTOS Date: 12/04/2024 23:22
[2024-12-04] MEDS: ACETAMINOPHEN 500 MG TABLET 1000 MG PO (22:59)
[2024-12-04] MEDS: IBUPROFEN 400 MG TABLET 800 MG PO (22:59)
--- NOTE | 2024-12-04 23:07 | ED.UPPEXIN1 ---
HPI HPI - Extremity Injury (Upper) General Chief Complaint: Extremity Injury, Upper Stated Complaint: RIGHT ARM INJURY Time Seen by Provider: 12/04/24 22:17 Source: patient Mode of arrival: walk-in Limitations: no limitations History of Present Illness HPI narrative: The patient states that she was trying to enter her house, she slipped and fell to her right, landing onto a bent right elbow. She localizes pain to the right olecranon and surrounding portion of the right elbow. She says the pain radiates up toward the shoulder and down toward the right wrist, but she is able to move her right shoulder and right wrist without much difficulty. No other injuries. She denies any injury to the head, neck, back or torso. She denies any injury to the pelvis or remaining extremities. No loss of consciousness. She took nothing at home for the pain prior to arrival. Related Data Home Medications ?Medication ?Instructions ?Recorded ?Confirmed atorvastatin 40 mg tablet 40 mg PO DAILY 12/04/24 12/04/24 losartan 50 mg tablet 50 mg PO DAILY 12/04/24 12/04/24 Previous Rx's ?Medication ?Instructions ?Recorded amoxicillin 875 mg-potassium 1 tab PO BID #20 tabs 03/17/24 clavulanate 125 mg tablet prednisone 20 mg tablet 20 mg PO BID 5 days #10 tabs 03/17/24 Allergies Allergy/AdvReac Type Severity Reaction Status Date / Time codeine AdvReac Severe Vomiting Verified 12/04/24 22:17 Opioid HPI Opioid Management Most Recent Pain and Opioid Data: Last Pain Scale 8 12/04/24 22:59 12/04/24 Last ED Pain Assessment 12/04/24 22:22 Last ORT Total Score 0 03/16/24 10:17 03/16/24 Last ORT Risk Category Low Risk 03/16/24 10:17 03/16/24 [facility] PFS Medical History (Updated 12/04/24 @ 23:12 by Damaso Merchant) Airway stricture ?J98.8 - Other specified respiratory disorders (ICD-10) Sepsis ?A41.9 - Sepsis, unspecified organism (ICD-10) Acute bacterial tonsillitis ?J03.80 - Acute tonsillitis due to other specified organisms (ICD-10) ?B96.89 - Other specified bacterial agents as the cause of diseases classified elsewhere (ICD-10) Social History (Updated 03/16/24 @ 10:37 by Mari Carl) Smoking status: Former smoker Do you use any of these nicotine containing products: vaping products Non-prescribed substance use: cannabis (any form) Previous occupational history: unemployed Highest level of school completed/degree received: high school graduate Little interest or pleasure in doing things: not at all Feeling down, depressed, or hopeless: not at all Feel stressed/tense/nervous/anxious/difficulty sleeping: not at all Life stressors: loss of job Exam Narrative Exam Narrative: Nurses note and vital signs reviewed and patient is not hypoxic. afebrile General: The patient appears well and in no apparent distress. Patient is resting comfortably on cart. GCS = 15. Skin: Warm, dry, no pallor noted. Head: Normocephalic, atraumatic Neck: Supple, trachea mid-line, no tenderness, no lymphadenopathy. Full ROM and no cervical spinal tenderness. The patient has no step-offs or crepitus noted Eyes: PERRLA, EOMI ENT: No facial injuries noted Cardiovascular: Regular Rate and Rhythm Respiratory: Patient is in no distress, no accessory muscle use, lungs are clear to auscultation, no wheezing, rales or rhonchi Back: No thoracic vertebral or lumbar vertebral tenderness to palpation. Negative straight leg raise bilaterally. No ecchymosis, abrasions, lacerations noted. Musculoskeletal: Tenderness to the right olecranon and the surrounding bony and soft tissue portions of the right elbow including the lateral epicondyle. No tenderness to the medial epicondyle. There is no tenderness on palpation of the right shoulder joint or the right clavicle. She also has no tenderness to the distal right forearm, right wrist, right hand or fingers of the right hand. Normal range of motion in the right upper extremity with some pain and moving the right elbow. no additional sign of long bone fracture. 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 Psychiatric: Cooperative Constitutional Vital Signs, click to edit/add: Last Vital Signs Temp 98.3 F 12/04/24 22:12 Pulse 85 12/04/24 22:12 Resp 16 12/04/24 22:12 BP 150/88 H 12/04/24 22:12 Pulse Ox 97 12/04/24 22:12 O2 Del Method Room Air 12/04/24 22:12 Course Vital Signs Vital signs: Vital Signs Temperature 98.3 F 12/04/24 22:12 Pulse Rate 85 12/04/24 22:12 Respiratory Rate 16 12/04/24 22:12 Blood Pressure 150/88 H 12/04/24 22:12 Pulse Oximetry 97 12/04/24 22:12 Oxygen Delivery Method Room Air 12/04/24 22:12 Temperature 98.3 F 12/04/24 22:12 Pulse Rate 85 12/04/24 22:12 Respiratory Rate 16 12/04/24 22:12 Blood Pressure 150/88 H 12/04/24 22:12 Pulse Oximetry 97 12/04/24 22:12 Oxygen Delivery Method Room Air 12/04/24 22:12 MDM - Extremity Injury (Upper) MDM Narrative Medical decision making narrative: The patient was given Tylenol and ibuprofen and x-rays of the right elbow were obtained. I reviewed the x-rays and do not find evidence of acute fracture of the right elbow. No sail sign. No changes to the contour of the visualized portions of the bones of the right elbow. The patient was given reassurance and discharged home. Emergency department nurse applied an El wrap to the patient's right elbow. She also gave the patient a sling. she was instructed to take Tylenol and Motrin at home for pain. If the pain does not dissipate within a week, she should follow-up with her primary care provider return to the emergency department for repeat x-rays. Imaging Data xr elbow: My impression: No acute fracture identified. No sail sign. Discharge Plan Discharge Chief Complaint: Extremity Injury, Upper Clinical Impression: Contusion of elbow, right, Elbow pain, right Patient Disposition: Home, Self-Care Time of Disposition Decision: 23:11 Prescriptions / Home Meds: No Action amoxicillin-pot clavulanate 875-125 mg tablet 1 tab PO BID Qty: 20 0RF prednisone 20 mg tablet 20 mg PO BID 5 Days Qty: 10 0RF atorvastatin 40 mg tablet 40 mg PO DAILY losartan 50 mg tablet 50 mg PO DAILY Print Language: Malawian Instructions: Contusion in Adults (ED) Referrals: Johanna Anderson NP [Primary Care Provider] - 1 week
== END 2024-12-04 23:24 | disposition home or self-care (01) ==
PROVIDERS: Emergency Provider Emergency Medicine; PCP Nurse Practitioner Family
DX: S50.01XA Contusion of right elbow, initial encounter (principal); W01.0XXA Fall on same level from slipping, tripping and stumbling without subsequent striking against object, initial encounter; Z87.891 Personal history of nicotine dependence; Z56.0 Unemployment, unspecified; M25.521 Pain in right elbow
CPT/HCPCS: 73080; 99283

== ENCOUNTER 2024-12-08 19:49 | Outpatient (OUT) | payer BC, SELFPAY ==
--- OUTSIDE RECORDS SUMMARY | 2024-12-08 19:51 | XMS_ITS | CCD ---
Author Organization [facility] CliniSypr Care Team Providers Care Log Sorting Supervisor Name Role Phone Leonora De Leon Unavailable LIV ALANIZ Admitting Unavailable LIV ALANIZ Attending Unavailable BRITTNYC, DR NORMAN Primary Care Unavailable NEMESIO GUTIERREZ Consulting Unavailable MISC, DR NORMAN Primary Care Unavailable ANA, DR SCHRADER Admitting Unavailable ANA, DR SCHRADER Attending Unavailable ANA, DR SCHRADER Consulting Unavailable BRITTNYC, DR NORMAN Primary Care Unavailable LIV ALANIZ Admitting Unavailable LIV ALANIZ Attending Unavailable TOM, DR BEATRICE Lee Consulting Unavailable LIV ALANIZ Consulting Unavailable Onofre Pierre Attending Unavailable Unavailable Primary Care Provider UnavailArturo Raman Attending Unavailable Arturo Cunningham Admitting Unavailable Olton, Beatrice Consulting Unavailable Olton, Beatrice Consulting Unavailable Olton, Beatrice Consulting Unavailable Olton, Beatrice Consulting Unavailable Olton, Beatrice Consulting Unavailable Olton, Beatrice Consulting Unavailable Olton, Beatrice Consulting Unavailable Olton, Beatrice Consulting Unavailable Olton, Beatrice Consulting Unavailable NONE, XXXX Primary Care Physician Unavailab MD Beatrice Childs Consulting Unavailable JESSICA DIANE Primary Care Physician [phone] Unallocated , Noms Provider Primary Care Provi megan Jessica Diane Unavailable Husam Guzman DO Unavailable HUSAM GUZMAN Attending Unavailable JESSICA DIANE Referring Unavailable HUSAM GUZMAN Attending Unavailable HUSAM GUZMAN Attending Unavailable OSMIN DIANE Attending UnavailOSMIN Dutton Admitting UnavailOSMIN Dutton Attending UnavailOSMIN Dutton Attending Unavailabl e ROXI, COMBINER OPERATOR JESSICA A Attending Unavailabl e ROXI, COMBINER OPERATOR JESSICA A Attending Unavailabl e ROXI, COMBINER OPERATOR JESSICA A Attending Unavailabl e ROXI, COMBINER OPERATOR JESSICA A Attending Unavailabl e ROXI, COMBINER OPERATOR JESSICA A Attending Unavailabl e ROXI, COMBINER OPERATOR JESSICA A Admitting Unavailabl e ROXI, COMBINER OPERATOR JESSICA A Attending Unavailabl e ROXI, OMSIN JESSICA A Referring Unavailabl e ROXI, COMBINER OPERATOR JESSICA A Attending Unavailabl e ROXI, COMBINER OPERATOR JESSICA A Admitting UnavailArturo Raman Admitting Unavailable Arturo Cunningham Attending MD Beatrice Wilburn Consulting Unavailable ROXI, COMBINER OPERATOR JESSICA A Admitting Unavailabl e Allergies Allergy Classification Reported Allergen(s) Allergy Type Date of Onset Reaction(s) Facility (5 sources) No Known Medication Allergies; Translations: [No Known Medication Allergies] Propensity to adverse reactions (disorder) [facility] Repository (7 sources) HYDROcodone; Translations: [HYDROcodone] Drug Allergy Vomiting (disorder) [facility] Repository (8 sources) Penicillins; Translations: [penicillins] Propensity to adverse reactions (disorder) Unknown (qualifier value) [facility] Repository Medications Current Medications Medication Drug [...] Daily, # 60 tab(s), Refills(s) 0, Pharmacy: [facility] 1155, 165, cm, 09/15/24 13:00:00 EDT, Height/Length Dosing, 125.2, kg, 09/15/24 13:00:00 EDT, Weight Dosing Start Date: 12/01/24 Status: Ordered Start: 09-14-2024 take 1 tablet by [facility] once daily losartan 50 mg Tab 50 mg = 1 tab(s), Oral, Daily, # 60 tab(s), Refills(s) 0, other reason (Rx), 165, cm, 09/15/24 13:00:00 EDT, Height/Length Dosing, 125.2, kg, 09/15/24 13:00:00 EDT, Weight Dosing Start Date: 09/15/24 Status: Ordered Penicillin (1 source) Start: 10-14-2021 take 1 tablet by [facility] three times daily Penicillin VK 500mg 500mg [...] 30 mg oral tablet (1 source) Uncompetitive Q-dapkph-G-aspartate Receptor Antagonist, Sigma-1 Agonist Start: 01-31-2020 [place] DMT 30-30 MG 1 tablet Orally every [...] in adult, unspecified whether serious comorbidity present ([facility])] 09-22-2024 Chronic Residual codes; unclassified (3 sources) [...] AM EST With: JESSICA DIANE CNP Where: [facility] [address] [address]- You Need to Schedule the Following Appointments Follow Up with JESSICA DIANE CNP, FAM When: Within 1 week Comments: HTN & Weight management Where: [address] [place] [phone] Business (1) Medications What How Much When [...] for choosing us for your care. Normal [facility] Ambulatory Visit Summary Ambulatory Visit Summary DIANE SAM :1975 Visit Date:12/03/2024 Ambulatory Visit Instructions Your Diagnosis HTN (hypertension) Fatigue Vapes nicotine containing substance BMI 45.0-49.9, adult, Body mass index [BMI] 45.0-49.9, adult Morbid obesity with BMI of 45.0-49.9, adult Your Care Team Attending Physician - JESSICA DIANE CNP Primary Care Physician - JESSICA DAINE CNP This Is Your Medications List acetaminophen [...] AM EST With: JESSICA DIANE CNP Where: [address] [address]- You Need to Schedule the Following Appointments Follow Up with JESSICA DIANE CNP, FAM When: Within 1 week Comments: HTN & Weight management Where: [address] [place] [phone] Business (1) Medications What How Much [...] for choosing us for your care. Normal [facility] CHEMISTRYOrdered By: SYSTEM SYSTEM on 12-03-2024 TSH Qn 1.26 m[IU]/L Normal 0.34 - 5.60 mcIU/mL Remisol Chem Family Medicine Office/Clini c Noteon 01-17-2025 Family Medicine Office/Clinic Note Family Medicine Office/Clinic Note [facility] Staff Diane is a 49 year old [...] (R53.83: Other fatigue) Ordered: Lab Specimen Collect 80327 TSH With T4fr Reflex 3. Vapes nicotine containing substance (Z72.0: Tobacco use) [address] [place] [address] 4. BMI 45.0-49.9, adult, (Z68.42: Body mass [...] JESSICA DIANE CNP, FAM Within [address] [place] [phone] Business (1) Additional Instructions: HTN & [...] or e-cigarette use Smokeless Tobacco Use:., 12/03/2024 Normal [facility] Comment on above: Result Comment: Elec tronically Signed By: EJSSICA DIANE CNP\radha\Date and Time Signed: 12/03/24 10:56 EST TSH With T4fr Reflexon 12-03 TSH Qn 1.26 m[IU]/L Normal 0.34-5.60 [facility] Comment on above: Performed By: #### 1 [id number] #### [facility] Laboratory [address] [place] [address] EMG 2 Extremitieson 11-01-20 EMG/NCS BLE Normal study [facility] [employer] NVC 9-10 Nerveson 11-01-2024 EMG/NCS BLE Normal study [facility] [employer] Home sleep teston 10-26-2024 Patient does meet criteria for severe obstructive sleep apnea from CPAP titration AHI is 42 with an oxygen desaturation down to 59.4 % [facility] Coding Queryon 10-01-2024 Coding Query Coding [...] DIANE SAM; Caller Number: Angel , Malu [facility] 09-29-20 [facility] Case Information Case Priority: None Programs: -- Referral Source: Financial Coordinator Referral Reason: Care coordination Case Type: Transition [...] -- Notes: TCM#1-OV Created By: [place] [facility] US Thyroidon 09-27-2024 US Thyroid Exam Date/Time: [...] Brennan MD Transcribed by: BRIAN Technologist: BRITTA Uriarte [facility] 09-22-20 [facility] Case Information Case Priority: None Programs: -- Referral Source: Financial Coordinator Referral Reason: Care coordination Case Type: Transition [...] Case discussion Contact Type: Patient Contact Name: CECYDIANE MARMOLEJO Notes: TCM#2- See tcm note. Created By: [place] Date: September 15, 2024 Method: In-person Type: -- Duration (min): -- Outcome: Case discussion Contact Type: Primary care provider Contact Name: -- Notes: TCM#1-OV Created By: [place] [facility] Ambulatory Visit Summaryon 1 Ambulatory Visit [...] AM EST With: JESSICA DIANE CNP Where: [place] [phone] You Need to Complete the Following US Thyroid, 09/15/24, Routine, Order for future visit, Transport Mode: Wheelchair, Reason: Other (please specify), No, Thyroid nodule incidentally noted on imaging study, pp_set_radiology_sub specialty, [facility] Someone Will Contact You Regarding These Appointments [facility] External Ambulatory Referral, Neurology, 09/15/24 13:00:00 EDT, [...] for choosing us for your care. Normal [facility] Family Medicine Office/Clini c Noteon 09-15-2024 Family Medicine Office/Clinic Note Family Medicine Office/Clinic Note HPI Staff Diane is a 49 year female presenting with Establish Care: History: Any previous diagnosis: fibroid in uterus, hypertension History of seeing any specialist: no When was your last doctors visit: Last provider: [facility] Any recent labs: [facility] Health Maintenance UTD: Colonoscopy: NO Mammogram: NO Pelvic/Pap: 5 years ago Acute: Current issues/complaints: TCM: Hospital: [facility] Admission date: 09/13/24 Discharge date: 09/14/24 Symptoms the patient presented with: vision was blurry and vision she was turning blue, b/p was high History of Present Illness Patient present today to establish care after a recent admission to [facility] for TIA. 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 The squad was called and she was taken to [facility]. Her blood pressure was elevated at that [...] po daily f/u in 4 weeks Ordered: [facility] 7 day disch [address] 2. Migraine headache (G43.909: Migraine, unspecified, not intractable, without status migrainosus) Discussed with patient headache may be related to blood pressure Referral placed for neurology Ordered: [facility] External Ambulatory Referral TCM [facility] care [facility] 7 day disch 10713 3. Thyroid nodule incidentally noted on imaging study (E04.1: Nontoxic single thyroid nodule) two nodules in the left thyroid lobe noted on CT Of Neck Ordered: TCM [facility] 7 day disch 66040 US Thyroid 4. Encounter to establish care (Z76.89: Persons encountering health services in other specified circumstances) Ordered: TCM [facility] 7 day disch 78100 5. Smoker (F17.200: Nicotine dependence, unspecified, uncomplicated) [...] telephone support. (more content not included)... Normal [facility] Comment on above: Result Comment: Elec tronically Signed By: JESSICA DIANE CNP\.br\Date and Time Signed: 09/15/24 13:57 EDT CBC w/ Auto Diffon 4 Basophils/100 WBC (Bld) 1.1 % Normal 0.0-2.0 [facility] Comment on above: Performed By: #### 2 [id number] #### [facility] Laboratory [address] [place] [address] Basophils/Leukocytes Auto (Bld) [Pure # fraction] 0.1 E9/L Normal 0.0-0.2 [facility] Comment on above: Performed By: #### 2 [id number] #### [facility] Laboratory [address] [place] [address] Eosinophils (Bld) [#/Vol] 0.3 E9/L Normal 0.0-0.5 [facility] Comment on above: Performed By: #### 2 [id number] #### [facility] [address] [place] [address] Eosinophils/100 WBC (Bld) 2.5 % Normal 0.0-8.0 [facility] Comment on above: Performed By: #### 2 [id number] #### [facility] [address] [place] [address] Erythrocyte distribution width (RBC) [Ratio] 15.4 % High 10.9-14.2 [facility] Comment on above: Performed By: #### 2 240977 #### [facility] [address] [place] [address] Hematocrit (Bld) [Volume fraction] 40.0 % Normal 34.0-46.0 [facility] Comment on above: Performed By: #### 2 387350 #### [facility] [address] [place] [address] Hemoglobin (Bld) [Mass/Vol] 13.5 g/dL Normal 12.0-16.0 [facility] Comment on above: Performed By: #### 2 977126 #### [facility] [address] [place] [address] Lymphocytes (Bld) [#/Vol] 2.8 E9/L Normal 1.0-4.0 [facility] Comment on above: Performed By: #### 2 134402 #### [facility] [address] [place] [address] Lymphocytes/100 WBC (Bld) 21.1 % Normal 14.0-50.0 [facility] Comment on above: Performed By: #### 2 670824 #### [facility] [address] [place] [address] MCH (RBC) [Entitic mass] 27.7 pg Normal 27.0-34.0 [facility] Comment on above: Performed By: #### 2 713560 #### [facility] [address] [place] [address] MCHC (RBC) [Mass/Vol] 33.7 g/dL Normal 31.4-36.0 [facility] Comment on above: Performed By: #### 2 033751 #### [facility] [address] [place] [address] MCV (RBC) [Entitic vol] 82.3 fL Normal 80.0-100.0 [facility] Comment on above: Performed By: #### 2 749965 #### [facility] [address] [place] [address] Monocytes (Bld) [#/Vol] 0.6 E9/L Normal 0.2-1.0 [facility] Comment on above: Performed By: #### 2 462102 #### [facility] [address] [place] [address] Neutrophils (Bld) [#/Vol] 9.4 E9/L High 2.0-7.5 [facility] Comment on above: Performed By: #### 2 118842 #### [facility] [address] [place] [address] Neutrophils/100 WBC (Bld) 70.8 % Normal 36.0-75.0 [facility] Comment on above: Performed By: #### 2 850536 #### [facility] [address] [place] [address] Platelet 304.0 E9/L Normal 150.0-500.0 [facility] Comment on above: Performed By: #### 2 [id number] #### [facility] [address] [place] [address] Platelet mean volume (Bld) [Entitic vol] 8.7 fL Normal 6.4-10.8 [facility] Comment on above: Performed By: #### 2 [id number] #### [facility] [address] [place] [address] RBC (Bld) [#/Vol] 4.9 E12/L Normal 4.3-5.9 [facility] Comment on above: Performed By: #### 2 769605 #### [facility] [address] [place] [address] WBC corrected for nucl RBC Auto (Bld) [#/Vol] 13.3 E9/L High 4.0-11.0 [facility] Comment on above: Performed By: #### 2 753998 #### [facility] [address] [place] [address] CHEMISTRYOrdered By: SYSTEM SYSTEM on 09-14-2024 Albumin [...] (S) [Mass conc ratio] 1.5 Normal 1.1-2.2 [facility] Comment on above: Performed By: #### 2 [id number] #### [facility] [address] [place] [address] Globulin (S) [Mass/Vol] 2.7 g/dL Normal 1.4-4.0 [facility] Comment on above: Performed By: #### 2 856403 #### [facility] [address] [place] [address] Protein [Mass/Vol] 6.7 g/dL Normal 6.0-7.8 [facility] Comment on above: Performed By: #### 2 044577 #### [facility] [address] [place] [address] Albumin [Mass/Vol] 4.0 g/dL Normal 3.3-5.0 [facility] Comment on above: Performed By: #### 2 728292 #### [facility] [address] [place] [address] ALP [Catalytic activity/Vol] 70 Int._Unit/L Normal 21-98 [facility] Comment on above: Performed By: #### 2 660409 #### [facility] [address] [place] [address] ALT No additional P-5'-P [Catalytic activity/Vol] 18 Int._Unit/L Normal 6-46 [facility] Comment on above: Performed By: #### 2 086766 #### [facility] [address] [place] [address] Anion gap [Moles/Vol] 9 mmol/L Normal 6-16 [facility] Comment on above: Performed By: #### 2 041779 #### [facility] [address] [facility] [address] AST [Catalytic activity/Vol] 15 Int._Unit/L Normal 5-43 [facility] Comment on above: Performed By: #### 2 680503 #### [facility] [address] [place] [address] Bilirubin [Mass/Vol] 0.6 mg/dL Normal 0.0-1.1 [facility] Comment on above: Performed By: #### 2 532913 #### [facility] [address] [place] [address] Calcium [Mass/Vol] 8.9 mg/dL Normal 8.9-11.1 [facility] Comment on above: Performed By: #### 2 569560 #### [facility] [address] [place] [address] Chloride [Moles/Vol] 103 mmol/L Normal 101-111 [facility] Comment on above: Performed By: #### 2 225899 #### [facility] [address] [place] [address] CO2 [Moles/Vol] 31 mmol/L Normal 21-31 [facility] Comment on above: Performed By: #### 2 430906 #### [facility] [address] [place] [address] Creatinine [Mass/Vol] 0.6 mg/dL Normal 0.5-1.3 [facility] Comment on above: Performed By: #### 2 818224 #### [facility] [address] [facility] [place] [address] Glucose [Mass/Vol] 124 mg/dL Normal 55-199 [facility] Comment on above: Performed By: #### 2 060228 #### [facility] [address] [place] [address] Potassium [Moles/Vol] 4.5 mmol/L Normal 3.5-5.3 [facility] Comment on above: Performed By: #### 2 887400 #### [facility] [address] [place] [address] Sodium [Moles/Vol] 138 mmol/L Normal 135-145 [facility] Comment on above: Performed By: #### 2 880332 #### [facility] [address] [place] [address] Urea nitrogen [Mass/Vol] 9 mg/dL Normal 5-21 [facility] Comment on above: Performed By: #### 2 101704 #### [facility] [address] [place] [address] Urea nitrogen/Creatinine [Mass ratio] 15 No Units Normal 10-20 [facility] Comment on above: Performed By: #### 2 176973 #### [facility] [address] [place] [address] CTA Headon 09-14-2024 CTA Head Exam Date/Time: [...] 370 Contrast amount in ml's: 100 Normal [facility] CTA Neckon 09-14-2024 CTA Neck Exam [...] the basilar artery, the vessels of the [place], and the anterior, middle, and [...] 370 Contrast amount in ml's: 100 Normal [facility] Discharge Note-Nursingon Discharge Note-Nursing Discharge Note-Nursing DIANE ASM :1975 Visit Date:09/13/2024 Inpatient Discharge Instructions Your [...] PM EDT With: JESSICA DIANE CNP Where: [facility] [address] [address]- New Follow Up Appointments after Discharge Follow Up with Beatrice Hogue MD, NEU When: 10/11/2024 09:00 AM EST Comments: Will be seeing Cheryl HERR at this appointment. Where: [facility] [place] [phone]- Business (1) Follow Up with XXXX NONE When: Where: [place] Medications What How Much When Instructions Next Dose New atorvastatin (atorvastatin 40 mg Tab) 1 Tablets By Mouth At bedtime Pickup at [facility]/pharmacy #6177 Tonight at 9:00 PM New losartan (losartan 50 mg Tab) 1 Tablets By Mouth Every day Pickup at [facility]/pharmacy #6177 Begin 09/15/2024 Unchanged acetaminophen (acetaminophen 325 mg Tab) 1 Tablets By Mouth Every 4 hours as needed for for pain As needed Pharmacy Information [facility]/pharmacy #6177: [address], [place] [id number] [phone] What How Much When Comments Stop Taking [...] 9 mg/dL (09/14/24 06:17:00) HGB: 13.5 gm/dL (09/14/24 06:17:00) Creatinine: 0.6 mg/dL (09/14/24 06:17:00) Hct: 40 [...] ??? Repe (more content not included)... Normal [facility] LIPID PANELon 4 [facility] CHOLESTEROL.IN LDL:MCNC:PT:SER/PLAS: QN: 132 mg/dL [facility]/dL [facility] CHOLESTEROL.IN VLDL:MCNC:PT:SER/PLAS :QN:CALCULATED 34 mg/dL 7 - 40 mg/dL [facility] TRIGLYCERIDE:MCNC:PT: SER/PLAS:QN: 170 mg/dL High NINF - 149 mg/dL [facility] Interpretation and review of laboratory results Abnormal [facility] Magnesium [Mass/Vol] 50 mg/dL [facility] Comment on above: '>= 60 LOW RISK' '<= 40 HIGH RISK' Original Ordering Provider: DO [facility]emio [facility] HEMATOLOGYOrdered By: SYSTEM SYSTEM on 09-14-2024 [...] 09-14-2024 Inpatient Clinical Summary Inpatient Clinical Summary [address] [address] Clinical Summary Person Information: Name: DIANE SAM Age: 49 Years : 1975 Sex: Female PCP: NONE, XXXX Marital Status: Race: White Ethnicity: Non- or Language: Urdu Visit Id: Visit Reason: Potential stroke; Vision changes; Headache; Hypertension; HYPERTENSION Speciality: Acuity: Enc Type: Observation Med Service: Medical Arrival: 09/13/2024 14:08:11 Discharge: Dispo Type: Admitted as IP to this [facility] Address: [address] [place] [id number] Provider Notes: Diagnosis: 1:Migraine headache; 3:Headache; 4:Tobacco [...] Physician: Follow up: With: Address: When: XXXX NONE , [place] With: Address: When: Beatrice Hogue MD, NEU [address] [place] [address] Business (1) 10/11/2024 9:00 AM Comments: Will be seeing Cheryl HERR at this appointment. Patient Education Information: Form - Blood Pressure Record Sheet; How to Take Your Blood Pressure; Migraine Headache Normal [facility] Inpatient Patient Summaryon 09-14-2024 Inpatient Patient Summary Inpatient Patient Summary [address] [address] Patient Discharge Instructions PERSON INFORMATION Name: DIANE SAM Date of : 1975 Current Date: 09/14/2024 11:33:55 PHYSICIANS Admitting Physician: Arturo Cunningham III, DO Primary Care Physician: TRACI BRUMFIELD PCP Phone Number: Comment: Discharge Diagnosis: 1:Migraine [...] With: Address: When: Beatrice Hogue MD, NEU [address] [place] [address] Business (1) 10/11/2024 9:00 AM Comments: Will be seeing Cheryl HERR at this appointment. In the event that this physician does not participate in your insurance network, please consult with your insurance company to find a nearby participating provider. Comment: CECY Garsia DEANN M, have received the attached patient education materials/instructio ns and have verbalized understanding: Patient Signature Date Clinican/Nurse Signature Date HERE ARE THE MEDICATION CHANGES THAT OCCURRED DURING YOUR HOSPITAL STAY New Medications [id number], [address], [place] [id number], [phone] atorvastatin (atorvastatin 40 mg Tab) 1 Tablets [...] reading) ??? p.m. (more content not included)... Normal [facility] Interdisciplinary Note - Quique e Manageron 09-14-2024 Interdisciplinary Note - Jv Baseball Coach Interdisciplinary Note - Jv Baseball Coach CRM to room 310 Patient is awake, [...] or Paramedicine. Patient was provided CRM contact, white board updated. CRM following Normal [facility] Comment on above: Result Comment: Elec tronically Signed By: Mile Estevez\.br\Date and Time Signed: 09/14/24 09:28 EDT Interdisciplinary Note - Soc ial Workeron 09-14-2024 Interdisciplinary Note - Button Bradder Interdisciplinary Note - Button Bradder Patient was discharged prior to SW being able to meet with her to discuss advance directives. SW will remain available. Normal [facility] Lipid Panelon 09-14-2024 Cholesterol [Mass/Vol] 198 mg/dL Normal 120-200 [facility] Comment on above: Performed By: #### 2 [id number] ####[facility] [address] [place] [address] Cholesterol in HDL [Mass/Vol] 50 mg/dL Invalid Interpretation Code [facility] Comment on above: Result Comment: '>= 60 LOW RISK' '<= 40 HIGH RISK' Performed By: #### 2 [id number] ####[facility] [address] [place] [address] Cholesterol in LDL [Mass/Vol] 132 mg/dL High <=129 [facility] Comment on above: Performed By: #### 2 [id number] ####[facility] [address] [place] [address] Cholesterol in VLDL [Mass/Vol] 34 mg/dL Normal 7-40 [facility] Comment on above: Performed By: #### 2 [id number] ####[facility] [address] [place] [address] Triglyceride [Mass/Vol] 170 mg/dL High <=149 [facility] Comment on above: Performed By: #### 2 [id number] ####[facility] [address] [place] [address] MRI Brain w/o Contraston MRI Brain w/o [...] BRIAN Technologist: WEST Technical Comments None Normal [facility] eGFRon 09-14-2024 eGFR 110 mL/min/1.73 m2 Normal >=59 [facility] Comment on above: Performed By: #### 1 [id number] #### [facility] [address] [place] [address] BB Draw & Holdon 09-13-2024 BB D&H Sample drawn for Blood Ba Normal [facility] Comment on above: Performed By: #### 1 [id number] #### [facility] [address] [place] [address] CBC w/ Auto Diffon 4 Basophils/100 WBC (Bld) 1.1 % Normal 0.0-2.0 [facility] Comment on above: Performed By: #### 2 [id number] #### [facility] [address] [place] [address] Basophils/Leukocytes Auto (Bld) [Pure # fraction] 0.2 E9/L Normal 0.0-0.2 [facility] Comment on above: Performed By: #### 2 [id number] #### [facility] [address] [place] [address] Eosinophils (Bld) [#/Vol] 0.2 E9/L Normal 0.0-0.5 [facility] Comment on above: Performed By: #### 2 [id number] #### [facility] [address] [place] [address] Eosinophils/100 WBC (Bld) 1.0 % Normal 0.0-8.0 [facility] Comment on above: Performed By: #### 2 [id number] #### [facility] [address] [place] [address] Erythrocyte distribution width (RBC) [Ratio] 15.0 % High 10.9-14.2 [facility] Comment on above: Performed By: #### 2 [id number] #### [facility] [address] [place] [address] Hematocrit (Bld) [Volume fraction] 41.5 % Normal 34.0-46.0 [facility] Comment on above: Performed By: #### 2 [id number] #### [facility] [address] [place] [address] Hemoglobin (Bld) [Mass/Vol] 13.8 g/dL Normal 12.0-16.0 [facility] Comment on above: Performed By: #### 2 [id number] #### [facility] [address] [place] [address] Lymphocytes (Bld) [#/Vol] 2.8 E9/L Normal 1.0-4.0 [facility] Comment on above: Performed By: #### 2 [id number] #### [facility] [address] [place] [address] Lymphocytes/100 WBC (Bld) 17.2 % Normal 14.0-50.0 [facility] Comment on above: Performed By: #### 2 [id number] #### [facility] [address] [place] [address] MCH (RBC) [Entitic mass] 27.4 pg Normal 27.0-34.0 [facility] Comment on above: Performed By: #### 2 [id number] #### [facility] [address] [place] [address] MCHC (RBC) [Mass/Vol] 33.3 g/dL Normal 31.4-36.0 [facility] Comment on above: Performed By: #### 2 [id number] #### [facility] [address] [place] [address] MCV (RBC) [Entitic vol] 82.4 fL Normal 80.0-100.0 [facility] Comment on above: Performed By: #### 2 [id number] #### [facility] [address] [place] [address] Monocytes (Bld) [#/Vol] 0.6 E9/L Normal 0.2-1.0 [facility] Comment on above: Performed By: #### 2 [id number] #### [facility] [address] [place] [address] Neutrophils (Bld) [#/Vol] 12.3 E9/L High 2.0-7.5 [facility] Comment on above: Performed By: #### 2 [id number] #### [facility] [address] [place] [address] Neutrophils/100 WBC (Bld) 76.7 % High 36.0-75.0 [facility] Comment on above: Performed By: #### 2 [id number] #### [facility] [address] [place] [address] Platelet mean volume (Bld) [Entitic vol] 8.8 fL Normal 6.4-10.8 [facility] Comment on above: Performed By: #### 2 [id number] #### [facility] [address] [place] [address] Platelets (Bld) [#/Vol] 304.0 E9/L Normal 150.0-500.0 [facility] Comment on above: Performed By: #### 2 [id number] #### [facility] [address] [place] [address] RBC (Bld) [#/Vol] 5.0 E12/L Normal 4.3-5.9 [facility] Comment on above: Performed By: #### 2 [id number] #### [facility] [address] [place] [address] WBC corrected for nucl RBC Auto (Bld) [#/Vol] 16.1 E9/L High 4.0-11.0 [facility] Comment on above: Result Comment: Deb pheral smear review performed. Performed By: #### 2 [id number] #### [facility] [address] [place] [address] CHEMISTRYOrdered By: SYSTEM SYSTEM on 09-13-2024 Albumin [...] Instructions For Use, Unique [place], June 2018) Urea nitrogen [Mass/Vol] 10 mg/dL Normal 5 - 21 mg/dL Remisol Chem Urea nitrogen/Creatinine [Mass ratio] 17 mg/mg Normal 10 - 20 Remisol Chem CMPon 09-13-2024 Albumin [Mass/Vol] 3.9 g/dL Normal 3.3-5.0 [facility] Comment on above: Performed By: #### 2 [id number] #### [facility] [address] [place] [address] Albumin/Globulin (S) [Mass conc ratio] 1.2 Normal 1.1-2.2 [facility] Comment on above: Performed By: #### 2 404821 #### [facility] [address] [place] [address] ALP [Catalytic activity/Vol] 70 Int._Unit/L Normal 21-98 [facility] Comment on above: Performed By: #### 2 594135 #### [facility] [address] [place] [address] ALT No additional P-5'-P [Catalytic activity/Vol] 20 Int._Unit/L Normal 6-46 [facility] Comment on above: Performed By: #### 2 548374 #### [facility] [address] [place] [address] Anion gap [Moles/Vol] 13 mmol/L Normal 6-16 [facility] Comment on above: Performed By: #### 2 [id number] #### [facility] [address] [place] [address] AST [Catalytic activity/Vol] 16 Int._Unit/L Normal 5-43 [facility] Comment on above: Performed By: #### 2 781103 #### [facility] [address] [place] [address] Bilirubin [Mass/Vol] 0.5 mg/dL Normal 0.0-1.1 [facility] Comment on above: Performed By: #### 2 [id number] #### [facility] [address] [place] [address] Calcium [Mass/Vol] 8.8 mg/dL Low 8.9-11.1 [facility] Comment on above: Performed By: #### 2 [id number] #### [facility] [address] [place] [address] Chloride [Moles/Vol] 100 mmol/L Low 101-111 [facility] Comment on above: Performed By: #### 2 [id number] #### [facility] [address] [place] [address] CO2 [Moles/Vol] 27 mmol/L Normal 21-31 [facility] Comment on above: Performed By: #### 2 [id number] #### [facility] [address] [place] [address] Creatinine [Mass/Vol] 0.6 mg/dL Normal 0.5-1.3 [facility] Comment on above: Performed By: #### 2 [id number] #### [facility] [address] [place] [address] Globulin (S) [Mass/Vol] 3.2 g/dL Normal 1.4-4.0 [facility] Comment on above: Performed By: #### 2 647926 #### [facility] [address] [place] [address] Glucose [Mass/Vol] 103 mg/dL Normal 55-199 [facility] Comment on above: Performed By: #### 2 [id number] #### [facility] [address] [place] [address] Potassium [Moles/Vol] 3.8 mmol/L Normal 3.5-5.3 [facility] Comment on above: Performed By: #### 2 916247 #### [facility] [address] [place] [address] Protein [Mass/Vol] 7.1 g/dL Normal 6.0-7.8 [facility] Comment on above: Performed By: #### 2 [id number] #### [facility] [address] [place] [address] Sodium [Moles/Vol] 136 mmol/L Normal 135-145 [facility] Comment on above: Performed By: #### 2 [id number] #### [facility] [address] [place] [address] Urea nitrogen [Mass/Vol] 10 mg/dL Normal 5-21 [facility] Comment on above: Performed By: #### 2 [id number] #### [facility] [address] [place] [address] Urea nitrogen/Creatinine [Mass ratio] 17 No Units Normal 10-20 [facility] Comment on above: Performed By: #### 2 [id number] #### [facility] [address] [place] [address] COAGULATIONOrdered By: Yenny Paz on 09-13-2024 aPTT Coag (PPP) [Time] 31.5 s Normal 25.1 - 36.5 second(s) [facility] Auto Coag Comment on above: Interpretive Data: Ashanti hawkins 15 days - 4 weeks 1 - 5 months 6 - 11 months 1 - 5 years 6 - 10 years 11 - 17 years PTT Mean: 35.4 (27.6-45.6) Mean: 33.5 (24.8-40.7) Mean: 32.4 (25.1-40.7) Mean: 31.6 (24.0-39.2) Mean: 31.6 (26.9-38.7) Mean: 31.0 (24.6-38.4) Pediatric Reference ranges were obtained from a study by castillo Araiza prepared from 1437 samples obtained at 7 different centers using the same coagulation reagent and instrumentation as [facility]. Currently there are no coagulation studies available worldwide for children to 14 days, and no normal ranges. Heparin therapeutic range (represented by Anti-Factor Xa activity of 0.2 - 0.4 U/mL) corresponds to PTT of 56.6 - 109.0 sec. INR Coag (PPP) [Relative time] 1.00 {INR} Invalid Interpretation Code [facility] Auto Coag Comment on above: Interpretive Data: I NR results are specifically intended to assess patients stabilized on long-term Anticoagulation therapy suggested INR s Less Intensive Anticoagulation 2.0 3.0 Conventional Range 3.0 4.5 PT Coag (PPP) [Time] 11.2 s Normal 9.4 - 1 2.5 second(s) [facility] Auto Coag Comment on above: Interpretive Data: 1 5 days - 4 weeks 1 - 5 months 6 -11 months 1-5 years 6-10 years 11 -17 years Mean: 11.2 (9.5-12.6) Mean: 11.0 (9.7-12.8) Mean: 11.0 (9.8-13.0) Mean: 11.3 (9.9-13.4) Mean: 11.7 (10.0-14.6) Mean: 11.8 (10.0 - 14.1) Pediatric Reference ranges were obtained from a study by castillo Araiza prepared from 1437 samples obtained at 7 different centers using the same coagulation reagent and instrumentation as [facility]. Currently there are no coagulation studies available worldwide for children to 14 days, and no normal ranges. CT Head or Brain w/o Bahman leal 09-13-2024 CT Head or Brain w/o Contrast [...] Fortune MD Transcribed by: BRIAN Technologist: MICHAEL Wet Read 09/13/2024 02:20 pm EDT, Harshad Fortune MD. CT Brain: NO evidence of Acute Intracranial Process. Normal [facility] ED Clinical Summaryon 2023 ED Clinical Summary ED Clinical Summary [place] [id number] ED Clinical Summary Person Information Name: DIANE SAM Mendy/[facility] Age: 49 Years : 1975 Sex: Female Language: Urdu PCP: NONE, XXXX Marital Status: Visit Id: Visit Reason: Potential stroke; Vision changes; Headache; Hypertension; HYPERTENSION Speciality: Acuity: 2 Enc Type: Observation Med Service: Medical Arrival: 09/13/2024 14:08:11 Discharge: LOS: 000 04:08 Checkin: 09/13/2024 14:08:11 Checkout: 09/13/2024 18:16:02 Dispo Type: Admitted as IP to this [facility] EVENTS: Event Name Event Status Request Date/Time [...] 16:52:35 Patient Care Request 09/13/2024 16:52:36 ADDRESS: [address] [place] [id number] PHYS DOC NOTES: MEDICAL INFORMATION: Prescriptions Given: Medications [...] Follow up: DIAGNOSIS: Brain TIA; Headache Normal [facility] ED Note-Physicianon 09-13-20 ED Note-Physician ED [...] WBC: 16.1 (more content not included)... Normal [facility] Comment on above: Result Comment: Elec tronically Signed By: Onofre Pierre DO\.br\Date and Time Signed: 09/13/24 16:39 EDT ED Patient Education Noteon 09-13-2024 ED Patient Education Note ED Patient Education Note Normal [facility] ED Patient Summaryon 024 ED Patient Summary ED Patient Summary [place] [id number] Patient Discharge Instructions Person Information Name: DIANE SAM Age: 49 Years Arrival Date: 09/13/2024 14:08:11 Discharge Diagnosis: Brain TIA; Headache Primary Care Physician: NONE, XXXX Provider Information Primary Provider: Onofre Pierre DO Advanced Advanced Practice Registered Nurse:None The exam and treatment you received in the Emergency Department were for an urgent problem and are not intended as complete care. It is important that you follow up with a doctor, nurse practitioner, or physician???s assistant professor of drama for ongoing care. If your symptoms become [...] opioids can be used to help relieve wftdmtwz-sk-jhugyd pain and are often prescribed following a [...] be struggling with addiction, tell your health patient care and ask for guidance or call [facility]???S National Helpline at 3-586-330-HELP. v Source: [place] Department of Health and Human Services/Center for Disease Control & Prevention Sudanese (more content not included)... Normal [facility] HEMATOLOGYOrdered By: SYSTEM SYSTEM on 09-13-2024 [...] Soc ial Workeron 09-13-2024 Interdisciplinary Note - Button Bradder Interdisciplinary Note - Button Bradder While completing quality rounding with this pt she expressed that she does not currently have a PCP, primary care list offered to the pt at this time. pt accepts, education on the primary care sheets and online scheduling portal provided at this time. Normal [facility] PT & PTTon 09-13-2024 aPTT Coag (PPP) [Time] 31.5 second(s) Normal 25.1-36.5 [facility] Comment on above: Result Comment: Para [...] the same coagulation reagent and instrumentation as [facility]. Currently there are no coagulation studies available worldwide for children to 14 days, and no normal ranges. Heparin therapeutic range (represented by Anti-Factor Xa activity of 0.2 - 0.4 U/mL) corresponds to PTT of 56.6 - 109.0 sec. Performed By: #### 1 [id number] #### [facility] [address] [place] [address] INR Coag (PPP) [Relative time] 1.00 {INR} Invalid Interpretation Code [facility] Comment on above: Result Comment: INR results are specifically intended to assess patients stabilized on long-term Anticoagulation therapy suggested INR???s ???Less Intensive Anticoagulation??? 2.0 ??? 3.0 Conventional Range 3.0 ??? 4.5 Performed By: #### 1 [id number] #### [facility] [address] [place] [address] PT Coag (PPP) [Time] 11.2 second(s) Normal 9.4-12.5 [facility] Comment on above: Result Comment: 15 [...] the same coagulation reagent and instrumentation as [facility]. Currently there are no coagulation studies available worldwide for children to 14 days, and no normal ranges. Performed By: #### 1 [id number] #### [facility] [address] [place] [address] Pre-Arrival Noteon Pre-Arrival Note Pre-Arrival Note Pre-Arrival Summary Name: , NCDIAZ Current Date: 09/13/2024 14:08:40 EDT Gender: Female Date of : Age: 49 Pre-Arrival Type: EMS ETA: 09/13/2024 14:31:00 EDT Primary Care Physician: Presenting Problem: HTN Pre-Arrival User: Kandice Bond RN Referring Source: Location: [place] Completion Date/Time: 09/13/2024 14:01:00 [facility] Emergency Department Pre-Hospital Report Form Vital Signs: Pre-Hospital Report: Treatment in Route: Response to Treatment: Misc. Issues: Normal [facility] Troponin 0 Hr.on 09-13-2024 Troponin HS 5.10 pg/mL Low 10.10-27.10 [facility] Comment on above: Result Comment: The 95% CI (Confidence Interval) PPV (Positive Predictive Value) for myocardial infarction in females is 38 pg/mL, in males 51 pg/mL. The results should be used in conjunction with clinical conditions of myocardial infarction. (Access High Sensitivity Troponin I Instructions For Use, Unique [place], June 2018) Performed By: #### 1 [id number] #### [facility] [address] [place] [address] UA with Cult Rflxon 09-13-20 24 Bilirubin Ql (U) Negative Normal Negative [facility] Comment on above: Performed By: #### 4 [id number] #### [facility] [address] [place] [address] Clarity (U) Clear Normal Clear [facility] Comment on above: Performed By: #### 4 [id number] #### [facility] [address] [place] [address] Color (U) Yellow Normal Yellow [facility] Comment on above: Result Comment: Micr oscopic readings are only performed on those samples that meet specific criteria set forth by [facility]. Performed By: #### 4 [id number] #### [facility] [address] [place] [address] Glucose Ql (U) Negative Normal Negative [facility] Comment on above: Performed By: #### 4 [id number] #### [facility] [address] [place] [address] Hemoglobin Auto test strip (U) [Mass/Vol] Negative Normal Negative [facility] Comment on above: Performed By: #### 4 [id number] #### [facility] [address] [place] [address] Ketones Auto test strip Ql (U) Trace Abnormal Negative [facility] Comment on above: Performed By: #### 4 [id number] #### [facility] [address] [place] [address] Leukocyte esterase Auto test strip Ql (U) Negative Normal Negative [facility] Comment on above: Performed By: #### 4 [id number] #### [facility] [address] [place] [address] Nitrite Auto test strip Ql (U) Negative Normal Negative [facility] Comment on above: Performed By: #### 4 [id number] #### [facility] [address] [place] [address] pH (U) 5.5 [pH] Invalid Interpretation Code 5.0-9.0 [facility] Comment on above: Performed By: #### 4 [id number] #### [facility] [address] [place] [address] Protein Ql (U) Trace Abnormal Negative [facility] Comment on above: Performed By: #### 4 [id number] #### [facility] [address] [place] [address] Specific gravity (U) [Rel density] 1.021 Invalid Interpretation Code 1.005-1.030 [facility] Comment on above: Performed By: #### 4 [id number] #### [facility] [address] [place] [address] Urobilinogen (U) [Mass/Vol] Negative Normal Negative [facility] Comment on above: Performed By: #### 4 [id number] #### [facility] [address] [place] [address] Type of Urine collection method Clean Catch Normal [facility] Comment on above: Performed By: #### 4 [id number] #### [facility] [address] [place] [address] URINALYSISOrdered By: SYSTEM SYSTEM on 09-13-2024 Bilirubin Ql (U) Negative Normal Negativemg/ d L [facility] UA Auto SS Clarity (U) Clear (09/13/24 4:14 PM) Normal Clear [facility] UA Auto SS Color (U) Yellow 1 (09/13/24 4:14 PM) Normal Yellow [facility] UA Auto SS Comment on above: Interpretive Data: M icroscopic readings are only performed on those samples that meet specific criteria set forth by [facility]. Glucose Ql (U) Negative Normal Negativemg/d L [facility] UA Auto SS Hemoglobin Auto test strip (U) [Mass/Vol] Negative Normal Negativemg/d L [facility] UA Auto SS Ketones Auto test strip Ql (U) Trace mg/dL Invalid Interpretation Code Negativemg/d L [facility] UA Auto SS Leukocyte esterase Auto test strip Ql (U) Negative Normal NegativeLeu/ uL [facility] UA Auto SS Nitrite Auto test strip Ql (U) Negative Normal Negativemg/d L [facility] UA Auto SS pH (U) 5.5 *NA* (09/13/24 4:14 PM) Invalid Interpretation Code 5.0 - 9.0 [facility] UA Auto SS Protein Ql (U) Trace mg/dL Invalid Interpretation Code Negativemg/d L [facility] UA Auto SS Specific gravity (U) [Rel density] 1.021 *NA* (09/13/24 4:14 PM) Invalid Interpretation Code 1.005 - 1.030 [facility] UA Auto SS Urobilinogen (U) [Mass/Vol] Negative Normal Negativemg/d L [facility] UA Auto SS URINALYSISOrdered By: Onofre torres on 09-13-2024 UA Spec Desc Clean Catch (09/13/24 4:14 PM) Normal [facility] UA Auto SS XR Chest Single Viewon [...] mGy = na DAP = na Normal [facility] eGFRon 09-13-2024 eGFR 110 mL/min/1.73 m2 Normal >=59 [facility] Comment on above: Performed By: #### 1 [id number] #### [facility] [address] [place] [address] Covid-19 PCR (CVDTBH)on SARS-CoV-2 (COVID-19) RNA CARLITO+probe Ql (Unsp spec) Not detected Normal NOT DETECTED [facility] Comment on above: Result Comment: When [...] for this test is supported by the [place] of Health and Human Service's declaration that [...] used). Performed By: #### C VDTBH #### [facility] [address] [address] [address] Francine Ruiz XR CHEST 1 Von [...] BEATRICE SANTOS Date: 2022-07-26 11:[address] [facility] POINT OF CARE GLUCOSEon 03- Glucose [Mass/Vol] 115 mg/dL Critically high 74-106 [facility] Comment on above: Performed By: #### P OCGLUC #### [facility] [address] [address] [address] Francine Ruiz COVID Quick Testingon 10-14 Result Negative [facility] Other Quick Strepon 10-14-2021 S. pyogenes Org specific cx Ql (Throat) Positive [facility] Other Quick Strep [facility] Other Coding Summaryon 06-08-2020 Coding Summary CODING DATE: 06/08/2020 [facility] STATUS: Home PAYOR: [employer] ADMIT DX: [...] Nogueira Date Saved: 06/08/2020 03:12 pm Normal [facility] - Immunology/Serology [facility] 05-29-2020 Lab - Immunology/Serology Results [id number] [facility] [place] [facility]2020 Provider Orders [id number] #1.00OTGTIFF [facility] Provider [place] 05-26-2020 Provider Orders [id number] [facility] SARS-CoV-2 (COVID-19) PCRon 05-26-2020 COVID-19 PCR Not Detected Normal Not Detected [facility] Comment on above: Result Comment: Perf ormed at [facility] [address] [place], [place] [phone] Performed By: #### 6 [id number] #### [facility] (DEFAULT) [address] [place] [address] Vital Signs Date Time Vital Sign Value Performing Clinician Facility 11-29-2024 16:14-0500 Body height 162.6 cm Husam Guzman DO Work Phone: [facility] 11-29-2024 16:14-0500 Body mass index (BMI) [Ratio] 48.34 kg/m2 Husam Robert DO Work Phone: [facility] 11-29-2024 16:14-0500 Body weight 127.73 kg Husam Robert DO Work Phone: [facility] 11-29-2024 16:14-0500 Diastolic blood pressure 82 mm[Hg] Husam Robert DO Work Phone: [facility] 11-29-2024 16:14-0500 Heart rate 80 /min Husam Robert DO Work Phone: [facility] 11-29-2024 16:14-0500 Systolic blood pressure 118 mm[Hg] Husam Robert DO Work Phone: [facility] 09-22-2024 11:30-0500 Body height 162.6 cm Husam Robert DO Work Phone: [facility] 09-22-2024 11:30-0500 Body mass index (BMI) [Ratio] 47.55 kg/m2 Husam Robert DO Work Phone: [facility] 09-22-2024 11:30-0500 Body weight 125.65 kg Husam Robert DO Work Phone: [facility] 09-22-2024 11:30-0500 Diastolic blood pressure 93 mm[Hg] Husam Robert DO Work Phone: [facility] 09-22-2024 11:30-0500 Heart rate 86 /min Husam Robert DO Work Phone: [facility] 09-22-2024 11:30-0500 Systolic blood pressure 148 mm[Hg] Husam Robert DO Work Phone: [facility] 09-14-2024 11:29-0400 Hourly Rounding [facility] 09-14-2024 11:29-0400 Promise to Return [facility] 09-14-2024 10:53-0400 Hourly Rounding [facility] 09-14-2024 10:53-0400 Promise to Return [facility] 09-14-2024 10:42-0400 Heart rate 76 /min [facility] 09-14-2024 10:42-0400 SaO2% (BldA) [Mass fraction] 96 % [facility] 09-14-2024 10:41-0400 Diastolic blood pressure 95 mm[Hg] [facility] 09-14-2024 10:41-0400 Mean blood pressure 116 mm[Hg] [facility] 09-14-2024 10:41-0400 Systolic blood pressure 159 mm[Hg] [facility] 09-14-2024 10:40-0400 Body temperature 98.6 [degF] [facility] 09-14-2024 09:45-0400 Hourly Rounding [facility] 09-14-2024 09:45-0400 Promise to Return [facility] 09-14-2024 08:28-0400 Respiratory rate 19 /min [facility] 09-14-2024 07:47-0400 Heart rate 73 /min [facility] 09-14-2024 07:47-0400 SaO2% (BldA) [Mass fraction] 98 % [facility] 09-14-2024 07:47-0400 Diastolic blood pressure 85 mm[Hg] [facility] 09-14-2024 07:47-0400 Mean blood pressure 109 mm[Hg] [facility] 09-14-2024 07:47-0400 Systolic blood pressure 155 mm[Hg] [facility] 09-14-2024 07:45-0400 Body temperature 98.06 [degF] [facility] 09-14-2024 04:05-0400 Blood Pressure Location [facility] 09-14-2024 04:05-0400 Diastolic blood pressure 80 mm[Hg] [facility] 09-14-2024 04:05-0400 Heart rate 77 /min [facility] 09-14-2024 04:05-0400 Mean blood pressure 96 mm[Hg] [facility] 09-14-2024 04:05-0400 Respiratory rate 16 /min [facility] 09-14-2024 04:05-0400 SaO2% (BldA) [Mass fraction] 97 % [facility] 09-14-2024 04:05-0400 Systolic blood pressure 128 mm[Hg] [facility] 09-14-2024 01:10-0400 Blood Pressure Location [facility] 09-14-2024 01:10-0400 Heart rate 77 /min [facility] 09-14-2024 01:10-0400 Mean blood pressure 95 mm[Hg] [facility] 09-14-2024 01:10-0400 Respiratory rate 16 /min [facility] 09-14-2024 00:03-0400 Body temperature 97.88 [degF] [facility] 09-14-2024 00:03-0400 Heart rate 76 /min [facility] 09-13-2024 18:43-0400 Blood Pressure Location [facility] 09-13-2024 18:43-0400 Mean blood pressure 108 mm[Hg] [facility] 09-13-2024 18:43-0400 Body temperature 98.6 [degF] [facility] 09-13-2024 18:40-0400 Body temperature 98.6 [degF] [facility] 09-13-2024 18:05-0400 Mean blood pressure 93 mm[Hg] [facility] 09-13-2024 18:05-0400 Respiratory rate 16 /min [facility] 09-13-2024 17:24-0400 Respiratory rate 16 /min [facility] 09-13-2024 16:54-0400 Respiratory rate 14 /min [facility] 09-13-2024 14:28-0400 gluc 90 mg/dL [facility] 09-13-2024 14:13-0400 Body temperature 98.6 [degF] [facility] 09-13-2024 14:13-0400 Heart rate 84 /min [facility] 09-13-2024 14:100400 gluc 90 mg/dL [facility] 10-14-2021 11:15-0500 Body height 165.1 cm Leonora Polancomond Other [facility] Other 10-14-2021 11:15-0500 Body mass index (BMI) [Ratio] 43.26 kg/m2 Leonora Polancomond Other [facility] Other 10-14-2021 11:15-0500 Body temperature 100 [degF] Leonora Polancomond Other [facility] Other 10-14-2021 11:15-0500 Body weight 117.94 kg Leoonra Polancomond Other [facility] Other 10-14-2021 11:15-0500 Respiratory rate 18 /min Leonora Polancomond Other [facility] Other 10-14-2021 11:15-0500 SaO2% (BldA) [Mass fraction] 98 % Leonora De Leon Other [employer] Other Encounters Encounter Date Encounter Type Care Provider Facility Start: 12-10-2024 ambulatory COMBINER OPERATOR JESSICA DIANE Fa cility:[facility] [place] Start: 12-03-2024 End: 12-03-2024 Lab Drop off JESSICA DIANE [facility] Start: 12-03-2024 End: 12-03-2024 ambulatory COMBINER OPERATOR JESSICA DIANE Facility:[facility] Start: 11-29-2024 End: 11-29-2024 Office outpatient visit 25 minutes Husam Guzman DO Work Phone: [facility] Comment on above: BERNY (obstructive sle ep apnea) (Primary Dx); Hypoxia; Numbness and tingling; Meralgia paresthetica of left side; Hypertensive urgency (CMS/HCC); Migraine without aura and without status migrainosus, not intractable (CMS/HCC); Vision changes Start: 11-29-2024 End: 11-29-2024 ambulatory HUSAM GUZMAN Not Available Start: 11-29-2024 End: 11-29-2024 Bamboo flowsheet Husam Robert DO Work Phone: [facility] Start: 11-29-2024 End: 11-29-2024 Bamboo flowsheet Husam Robert DO Work Phone: [facility] [place] Start: 11-01-2024 End: 11-01-2024 Bamboo flowsheet Husam Robert DO Work Phone: [facility] [place] [facility] Start: 11-01-2024 End: 11-01-2024 Bamboo flowsheet Husam Robert DO Work Phone: [facility] [place] [facility] Start: 11-01-2024 End: 11-01-2024 Patient encounter procedure Husam Guzman DO Work Phone: [facility] [place] [facility] Comment on above: Numbness and tinglin g Start: 11-01-2024 End: 11-01-2024 ambulatory HUSAM ROBERT Not Available Start: 10-26-2024 End: 10-26-2024 ambulatory HUSAM ROBERT Not Available Start: 10-25-2024 End: 10-25-2024 Clinical Support [facility] [employer] [facility] [place] [address] Comment on above: BERNY (obstructive sle ep apnea) (Primary Dx); Hypersomnia; Snoring Start: 10-13-2024 End: 10-13-2024 ambulatory COMBINER OPERATOR JESSICA A ROXI [facility] Start: 10-12-2024 End: 10-12-2024 ambulatory COMBINER OPERATOR JESSICA A ROXI Facility:[facility] Start: 10-05-2024 ambulatory COMBINER OPERATOR JESSICA A ROXI Fa cility:[facility] Start: 10-04-2024 ambulatory COMBINER OPERATOR JESSICA A ROXI Fa cility:[facility] Start: 09-22-2024 End: 09-22-2024 Bamboo flowsheet Husam Robert DO Work Phone: [facility] Start: 09-22-2024 End: 09-22-2024 Bamboo flowsheet Husam Robert DO Work Phone: [facility] Start: 09-22-2024 End: 09-22-2024 Office consultation new/estab patient 60 min Husam Robert DO Work Phone: [facility] Comment on above: Hypertensive urgency (CMS/HCC) [...] (CMS/HCC) Start: 09-22-2024 End: 09-22-2024 ambulatory HUSAM ROBERT Not Available Start: 09-22-2024 End: 09-22-2024 ambulatory COMBINER OPERATOR JESSICA A ROXI Facility:[facility] Start: 09-22-2024 End: 09-22-2024 Patient encounter procedure JESSICA DIANE [facility] Start: 09-15-2024 End: 09-15-2024 ambulatory OSMIN DIANE Facility:[facility] [place] Start: 09-15-2024 End: 10-18-2024 ambulatory OSMIN DIANE Facility:[id number] Start: 09-14-2024 End: 09-14-2024 Clinisync Result Encounter Artemio Williamson DO Work Phone: [facility] Unsolicited Start: 09-14-2024 End: 09-14-2024 Clinisync Result Encounter Artemio Williamson DO Work Phone: [facility] Unsolicited Start: 09-14-2024 ambulatory OSMIN DIANE Faci lity:[facility] Start: 09-13-2024 End: 09-14-2024 ambulatory Arturo Cunningham Facility:[facility] Start: 09-13-2024 Emergency department patient visit Onofre Pierre Facility:[facility] Start: 09-13-2024 End: 09-14-2024 Observation Arturo Cunningham III [facility] Start: 07-26-2022 End: 07-26-[address] DOCTOR DANIELS Facility:[facility] Start: 01-25-2022 End: 01-25-[address] DOCTOR DANIELS Facility:[facility] Start: 12-19-2021 End: 12-19-2021 ambulatory LIV ALANIZ Facility:[facility] Start: 10-14-2021 (URG) Urgent Care Visit Leonora rios [facility] Start: 10-14-2021 End: 10-14-2021 ambulatory Leonora De Leon Other [facility] Other Procedures Date Procedure Procedure Detail Performing Clinician Start: 11-01-2024 End: 11-01-2024 Needle emg ea extremty w/paraspinl area complete Husam Guzman DO Work Phone: Start: 10-26-2024 HOME SLEEP TEST Husam Guzman DO Work Phone: Start: 09-14-2024 [facility] LIPID PANEL Artemio calvo DO Work Phone: Start: 12-25-1996 Tubal ligation done SHE MACARENA DIANE Plan of Treatment Date Care Activity Detail Author Start: 02-15-2025 End: 02-15-2025 Patient encounter procedure 02/15/2025 10:30 AM EDT Office Visit [facility] [address] [place] [address] Husam Guzman DO [address] [place], [place] [id number] [facility] Start: 11-29-2024 End: 11-29-2024 Patient encounter procedure [facility] [address] Comment on above: Arrived Start: 11-29-2024 End: 11-29-2025 Polysomnography [facility] Routine BERNY (obstructive sleep apnea) Expected: 11/29/2024 (Approximate), Expires: 11/29/2025 [facility] Work Phone: Comment on above: Expected: 11/29/2024 (Approximate), Expires: 11/29/2025 Start: 11-18-2024 End: 11-18-2024 Patient encounter procedure 11/18/2024 11:20 AM EST Office Visit [facility] [address] [address] [place] [address] Elizabeth Cm NP [address] [place] [facility] Start: 11-01-2024 End: 11-01-2024 Patient encounter procedure 11/01/2024 8:30 AM EST Procedure Visit [facility] [address] [place] [address] Husam Guzman DO [address] [place] [address] Arrived [facility] Comment on above: Arrived Start: 10-26-2024 End: 10-26-2024 Clinical Support 10/26/2024 8:00 AM EST Clinical Support [facility] [address] [place] [phone] [facility] Start: 10-25-2024 End: 10-25-2024 Clinical Support 10/25/2024 3:00 PM EST Clinical Support [facility] [address] [place] [phone] [facility] Start: 10-11-2024 End: 10-11-2024 Patient encounter procedure 10/11/2024 9:00 AM EST Office Visit [facility] [address] [place] [phone] Cheryl Lizarraga PA [address] [place] [address] [facility] Start: 10-04-2024 End: 10-04-2024 Patient encounter procedure 10/04/2024 10:30 AM EST Procedure Visit [facility] [address] [place] [phone] Husam Guzman DO [address] [place] [address] [facility] [address] [facility] Start: 09-22-2024 End: 09-22-2024 Patient encounter procedure 09/22/2024 11:30 AM EST Office Visit [facility] [address] [address] [place] [address] Husam Guzman DO [address] [place] [address] Arrived [facility] Comment on above: Arrived Start: 07-18-2024 Influenza vaccination Influenza Vacc ine (#1) [facility] Start: 2015 Screening for malign ant neoplasm of breast Mammogram [facility] Start: 2005 Screening for malign ant neoplasm of cervix [facility] Start: 1996 Screening for malign ant neoplasm of cervix Pap Smear [facility] Start: 1975 Screening for malign ant neoplasm of colon [facility] Payers Date Payer Category Payer Self-pay 2024 Unknown 2024 Unknown [id number] 2023 [facility] 1.2.8 [id number] 2023 Unknown [id number] 1975 Unknown [id number] 2.16.84 0.1.143751.3.579.2.593 1975 Unknown [id number] 2.16.84 0.1.571722.3.579.2.593 1975 Unknown [id number] 2.16.84 0.1.785448.3.579.2.593 1975 Unknown [id number] 2.16.8 40.1.595754.3.579.2.727 1975 Unknown [id number] 2.16.8 40.1.247675.3.579.2.727 1975 Unknown [id number] 2.16.8 40.1.562826.3.579.2.727 1975 Unknown [id number] 2.16.8 40.1.968660.3.579.2.727 1975 Unknown [id number] 2.16.84 0.1.860045.3.579.2.1259 1975 Unknown [id number] 2.16.84 0.1.663353.3.579.2.1259 1975 Unknown [id number] 2.16.84 0.1.358170.3.579.2.1259 1975 Unknown [id number] 2.16.84 0.1.905422.3.579.2.1259 1975 Unknown [id number] 2.16.84 0.1.313192.3.579.2.9 1975 Unknown [id number] 2.16.8 40.1.746666.3.579.2.727 1975 Unknown [id number] 2.16.8 40.1.264448.3.579.2. 1975 Unknown [id number] 2.16.8 40.1.533554.3.579.2.7 1975 Unknown [id number] 2.16.8 40.1.681462.3.579.2. 1975 Unknown [id number] 2.16.8 40.1.629148.3.579.2.7 1975 Unknown [id number] 2.16.8 40.1.828560.3.579.2.7 1975 Unknown [id number] 2.16.8 40.1.111588.3.579.2.7 1975 Unknown [id number] 2.16.8 40.1.996409.3.579.2.7 1975 Unknown [id number] 2.16.8 40.1.636330.3.579.2.7 1975 Unknown [id number] 2.16.8 40.1.639634.3.579.2.727 1959 Self-pay [id number] Unknown [id number] [id number] Social History Date Type Detail Facility Unknown if ever smoked [facility] Other Start: 09-22-2024 End: 11-29-2024 Sex Assigned At [facility] Tobacco smoking stat [facility] Tobacco smoking consumption unknown [facility] Start: 1975 Sex assigned at Not on file [facility] Tobacco smoking status No Smokin g Status Entered [facility] Tobacco quit August Tobacco Use:. Cigarettes [facility] Start: 09-22-2024 End: 12-03-2024 Tobacco smoking status NHIS Ex-smoker [facility] Start: 04-17-1993 End: 09-14-2024 History of tobacco use Current smoker [facility] Start: 04-17-1993 End: 09-14-2024 History of tobacco use Cigarette Smoker [facility] Start: 09-22-2024 End: 11-29-2024 Cigarettes smoked current (pack per day) - Reported 1 [facility] Start: 09-22-2024 Tobacco use and exposure Smokeless tobacco non-user [facility] Start: 09-22-2024 End: 11-29-2024 Alcoholic beverage intake Current drinker of alcohol (finding) [facility] Start: 09-22-2024 Tobacco Comment I smoke disposable vapes [facility] Start: 09-22-2024 Alcohol Comment Used to drink often in my early to mid 20s. Now very occasio [facility] Functional Status Date Assessment Result Facility 09-13-2024 Functional Status No [facility] 09-13-2024 Functional Status [facility] Clinical Notes 10-14-2021 to 12-03-2024 Husam Guzman, - 11/29/2024 3:45 PM Maude Watson, ABBEYT - 11/01/2024 8:30 AM Ofelia Julien - 10/25/2024 3:00 PM Idania Guzman, - 09/22/2024 11:30 AM EST Note Date [...] these instructions at home: Medicines ??? Take onab-djr-crutkpi and prescription medicines only as told by [...] the National Suicide Prevention Lifeline at or 989. This is open 24 hours a day. ??? Text the Crisis Text Line at 158032. Summary ??? If you have fatigue, you [...] provider. Document Revised: 08/26/2022 Document Reviewed: 08/26/2022 [employer] Patient Education ? 2023 [employer]. [facility] 11-29-2024 History of Present illness Narrative [...] Ming Stroke Father Ming Neuropathy Maternal Grandmother Demorest ADD / ADHD Brother Boo Garcia Anxiety disorder Father's Sister Aimee Neuropathy Father's Sister Aimee Depression Sister Rsoas Neuropathy Mother's Brother Jesus Manuel Social History [...] clinic: 2 months documented in this encounter [facility] 11-01-2024 History of Present illness Narrative Images from the original note were not included. Reason for Appointment: EMG Patient: Diane Sam DOB: 1975 EMG Computer: [email or web address] Referring Physician: Dr. Husam Guzman EMG: BLE family engagement specialist: David Watson RT(R) Office Location: [place] Reason for EMG: c/o low back pain that radiates down bilateral legs L>R, numbness/tingling in bilateral legs L>R. No hx of DM. Not on blood thinners. Comments: Procedure was explained to the patient who expressed understanding. Patient appeared to have tolerated the test well despite some discomfort due to the nature of the test. documented in this encounter [facility] 10-25-2024 History of Present illness Narrative Reason for Appointment: HST Patient: Dianeекатреина TOLENTINO: 1975 Reason for Home Sleep Study: Sleep disturbances Ordering Physician: Dr. Husam Guzman Electro Optics Engineer: Courtney Julien Pick-up Comments: Procedure was explained to the patient who expressed understanding. Patient was instructed how to use device and informed to return completed questionnaire with device tomorrow morning...... 10/25/2024 Electro Optics Engineer: Courtney Julien Drop-Off Comments: Patient returned HST device. Study data was successfully uploaded and completed questionnaire was imported to patient's chart....... 10/26/2024 Resulting Physician: NEENA Leahy DO Impression: Patient does meet criteria for severe obstructive sleep apnea from CPAP titration AHI is 42 with an oxygen desaturation down to 59.4 % documented in this encounter [facility] 09-22-2024 History of Present illness Narrative Images from the original note were not included. Chief Complaint Patient presents with Headache Subjective Diane Sam, 49 y.o., female is being seen in Neurology consultation at the request of Jessica Diaen. HPI Migraine headaches - seen @ [facility] for hypertension; referral received from [place] Diane [...] was elevated so she was taken to [facility] ED by ambulance to be evaluated for [...] Ming Stroke Father Ming Neuropathy Maternal Grandmother Demorest ADD / ADHD Brother Boo Garcia Anxiety [...] clinic: 2 months documented in this encounter [facility] 09-15-2024 Note Patient Education Nutrition DASH Eating [...] and sunflower oils (more content not included)... [facility] 09-14-2024 Evaluation + Plan note Extrac myla from: Title:Discharge Note Author:Mili Cunningham III, DO Date:09/14/24 Discharge To, Anticipated II - Home with responsible caregiver Discharge Diet(s): Regular (09/14/24 11:19:00) Prescriptions atorvastatin 40 mg Tab, 40 mg= 1 tab(s), Oral, Bedtime losartan 50 mg Tab, 50 mg= 1 tab(s), Oral, Daily Home acetaminophen 325 mg Tab, 325 mg= 1 tab(s), Oral, q4hr, PRN With When Contact Information Mykle MARQUES, LULU Lomeli Within 2 to [address] [address] [facility] (1) Additional Instructions: XXXX NONE [place] [...] calories) Extracted from: Title:Admission H & P Author:Law lazaro Cunningham III, DO Date:09/13/24 Patient is a pleasant and al [...] Date:09/15/2024 01:00:00 PM Scheduled Provider:JESSICA DIANE CNP Location:[facility] Appointment Type: New Patient - Adult [facility] 10-29-2024 Hospital Discharge instructions Patient Education [...] Document Reviewed: 07/18/2022 Elsevier Patient Education 2023 [employer] 09/14/2024 11:22:16 How to Take Your [...] Follow these instructions at home: Medicines Take jnpt-fig-bnuntvu and prescription medicines only as told by [...] buy a blood pressure monitor at most [employer] or online. Where to find more information [place] [employer]: www.heart.org Contact a health care [...] provider. Document Revised: 07/18/2022 Document Reviewed: 07/18/2022 [employer] Patient Education 2023 [employer]. 09/14/2024 11:22:05 Migraine Headache Migraine Headache A [...] Follow these instructions at home: Medicines Take uawa-zbf-feglmns and prescription medicines only as told by your provider. Ask your provider if the medicine prescribed to you: ?Requires you to avoid driving or using machinery. ?Can cause constipation. You may need to take these actions to prevent or treat constipation: ?Drink enough fluid to keep your pee (urine) pale yellow. ?Take oqxp-waq-owbgsnz or prescription medicines. ?Eat foods that are [...] for Headache and Migraine Patients (CHAMP): headachemigraine.org [place] Mig[employer] Foundation: americanmigrainefoundation.org National Headache Foundation: headaches.org [...] provider. Document Revised: 06/30/2023 Document Reviewed: 06/30/2023 [employer] Patient Education 2023 [employer]. Follow Up Care 09/13/2024 14:08:39 With:XXXX NONE Address: [place] When: Unknown With:Beatrice Hogue MD, NEU Address: [address] [place] [address] [place] [id number] Business (1) When:10/11/2024 09:00:00 Comments:Will be seeing Cheryl HERR at this appointment. [facility] 10-29-2024 NoteGetSure2Sign Recruiting Learning Participants Patient Mony Understands Education Yes Smarter Learn Limited Education Video Statins: Should You Take Them to Lower Your Risk?[facility] 09-14-2024 NoteDischarge Summary Admission and Discharge [...] and recent bacterial tonsillitis requiring admission to [place] within the past month,admitted to [facility] 09/13/24 with vision changes, headache, and concern [...] vs migraine, Consult and Co-manage Consult to [employer] Consultant - Ordered -- 09/13/24 18:34:31 EDT Physical [...] LULU Lomeli Within 2 to 4 weeks [address] [place] [phone] Business (1) Additional Instructions: XXXX NONE [place] Additional [...] neurology as well as ordering, chart review, documentation[facility] & [facility] HospitalComment on above:Result Comment: Electronically Signed By: Arturo Cunningham III, DO\Date and Time Signed: 09/14/24 11:29 [id number] NoteConsultation Note Chief Complaint blurry vision, headache, blue fingers and HTN, felt weak Reason for Consultation vision changes secondary to TIA vs Migraine History of Present Illness 49-year-old woman. 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: Obeys both correctly = 0 [...] 40 mg= 1 ta (more content not included)...[facility]:Result Comment: Electronically Signed By: Elvira Zepeda RN\.br\Date and Time Signed: 09/14/24 07:19 EDT\.br\Electronically Co-Signed By: Artemio Williamson DO\.br\Date and Time Co- Signed: 09/14/24 09:57 EDT\.br\Electronically Co-Signed By: Elvira Zepeda RN [id number] NoteConsultation Note Chief Complaint blurry vision, headache, blue fingers and HTN, felt weak Reason for Consultation vision changes secondary to TIA vs Migraine History of Present Illness 49-year-old woman. 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 GetWell Learning Participants [facility]10-29-2024 NoteGetWell Learning Participants Patient [facility] Understands Education Yes GetWell Education Video Avoiding Infections in [facility]24 Note OtilioWell Education Video After a Stroke: Taking an Antiplatelet GetWell Learning Participants Patient Mony Understands Education [facility]10-28-2024 NoteHistory and Physical Chief Complaint blurry vision, headache, blue fingers and HTN, felt weak History of Present Illness Patient is a 49-year-old female smoker with past medical history of morbid obesity, recently diagnosed hypertension, and recent bacterial tonsillitis requiring admission to [place] within the past month who presents with vision changes and strokelike symptoms that presented at work there were transient nature. 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 with bacterial tonsillitis and was told [...] 14:17:00) Lymph Auto: 17.2 % (09/13/24 14:17:00) Castro Auto: 4 % (09/13/24 14:17:00) Eos Auto: 1 % (09/13/24 14:17:00) Basophil Auto: 1.1 % (09/13/24 14:17:00) Neutro Absolute: 12.3 E9/L High (09/13/24 14:17:00) Lymph Absolute: 2.8 E9/L (09/13/24 14:17:00) Castro Absolute: 0.6 E9/L (09/13/24 14:17:00) Eos Absolute: 0.2 E9/L (09/13/24 14:17:00) Basophil Absolute: 0.2 E9/L (09/13/24 14:17:00) PT: 11.2 second(s) (09/13/24 14:17:00) INR: 1 (09/13/24:17:00) PTT: 31.5 second(s) (09/13/24 14:17:00) Glucose Lvl: 103 mg/dL (09/13/24 14:17:00) BUN: 10 mg/dL (09/13/24 14:17:00) Creatinine: 0.6 mg/dL (09/13/24 14:17:00) eGFR: 110 mL/min/1.73 m2 (09/13/24 14:17:00) BUN/Creat Ratio: 17 (09/13/24 14:17:00) Sodium Lvl: 136 mmol/L (09/13/24 14:17:00) Potassium Lvl: 3.8 mmol/L (09/13/24 14:17:00) Chloride: [...] Spec Desc: Clean Catc (more content not included)...[facility]:Result Comment: Electronically Signed By: Arturo Cunningham III, DO\Date and Time Signed: 09/13/24 19:10 [id number] Evaluation note* Encounter Date Diagnosis Assessment Notes [...] [facility] Care At Home document. [employer] Other Evaluation + Plan note Future Appointments Appointment Date:10/12/2024 09:00:00 AM Scheduled Provider:JESSICA DIANE CNP Location:[facility] Appointment Type: Open [facility] Evaluation + Plan note Future Appointments Appointment Date:12/10/2024 09:00:00 AM Scheduled Provider:JESSICA DIANE CNP Location:[facility] Appointment Type:[facility] Future Scheduled Tests Laboratory* TSH With T4fr Reflex 09/29/24 [facility] Evaluation note* Diagnosis Hypertensive urgency (CMS/HCC)- Primary Migraine without aura and without status migrainosus, not intractable (CMS/HCC) Vision changes Hypersomnia Hypersomnia, unspecified Snoring Other dyspnea and respiratory abnormality Numbness and tingling Disturbance of skin sensation Class 3 severe obesity due to excess calories with body mass index (BMI) of 45.0 to 49.9 in adult, unspecified whether serious comorbidity present (CMS/HCC) Hypertension, unspecified type (CMS/HCC) Hyperlipidemia, unspecified hyperlipidemia type ([facility]) [facility] Diagnosis Numbness and tingling Disturbance of skin sensation documented [facility] encounter [facility]* Diagnosis BERNY (obstructive sleep apnea)- Primary Obstructive sleep apnea (adult) (pediatric) Hypersomnia Hypersomnia, unspecified Snoring Other dyspnea and respiratory abnormality documented in this encounter [facility]* Diagnosis BERNY (obstructive sleep apnea)- Primary Obstructive sleep apnea (adult) (pediatric) Hypoxia Hypoxemia Numbness and tingling Disturbance of skin sensation Meralgia paresthetica of left side Hypertensive urgency ([facility]) Migraine without aura and without status migrainosus, not intractable ([facility]) Vision changes documented in this encounter [facility] Narrative - Reported* Type Description Date Surgical History cervical biopsy Surgical History kidney stone Hospitalization History See Above [employer] Other Hospital course Narrative No data available for this section [facility] Hospital Discharge instructions No data available for this section [facility] Progress note No data available for this section [facility] Summary Purpose Family History No Family [...] DATE CREATED AUTHOR AUTHOR'S ORGANIZ ATION 09/14/2024 [facility] DATE CREATED AUTHOR AUTHOR'S ORGANIZ ATION 09/15/2024 [facility] DATE CREATED AUTHOR AUTHOR'S ORGANIZ ATION 12/03/2024 [facility] DATE CREATED AUTHOR AUTHOR'S ORGANIZ ATION 12/06/2024 [facility] DATE CREATED AUTHOR AUTHOR'S ORGANIZ ATION 12/07/2024 [facility] REASON FOR VISIT (unrecogniz ed section and content) Reason Comments Headache Specialty Diagnoses / Procedures Referred By Contac t Referred To Contact Neurology Diagnoses Migraine, unspecified, not intractable, without status migrainosus (CMS/[facility]) Procedures CT OFFICE/OUTPATIENT NEW LOW MDM 30 MINUTES [facility] [address] [place] [address] Phone: tel: fax: Beatrice Hogue MD [address] [place] [address] Phone: tel: fax: Referral ID Status Reason Start Date Expiration Date V isits Requested Visits Authorized [id number] Closed Consult and Treat 09/17/2024 03/16/2025 1 1 Reason Comments Peripheral Neuropathy Headache Patient Care team informatio n (unrecognized section and content) Log Sorting Supervisor Relationship Specialty Start Date End Date Unallocated, Noms Provider, [address] [place] [address] PCP - General Family Medicine 09/17/24 Jessica Diane [facility] [address] [place] [address] 09/17/24 Personnel Name: ROXI OSMIN JESSICA Carter Address: Address: [address] [place] [phone] FOR RECORDS PERTAINING TO PATIENTS WHO ARE [...] BE BASED ON THE PRIMARY CLINICAL RECORDS. [employer] [facility]. provides no warranty or guarantee of the accuracy or completeness of information in this document.
== END 2024-12-08 19:50 | disposition home or self-care (01) ==
LOC: SLEEP 19:49
PROVIDERS: PCP Nurse Practitioner Family; Visit Provider Psychiatry & Neurology Neurology
DX: G47.33 Obstructive sleep apnea (adult) (pediatric) (principal)
CPT/HCPCS: 95811